=== PATIENT | male | born 1950 | race Caucasian/White ===

== ENCOUNTER 2020-05-18 15:02 | Emergency (ER) | payer MEDICARE, BC ==
[2020-05-18 15:09] VITALS: RESP 18; TEMP 97.4
[2020-05-18] MEDS ORDERED: MORPHINE SULFATE 4 MG/ML SYRINGE IVP STA (15:49)
--- NOTE | 2020-05-18 15:51 | ED ---
General Adult HPI - General Chief complaint: Abdominal Pain Stated complaint: abd pain Time Seen by Provider: 05/18/20 15:19 Source: patient, RN notes reviewed, old records reviewed Mode of arrival: ambulatory Limitations: no limitations - History of Present Illness Initial comments: 69-year-old male history of dementia presenting with abdominal pain. History is obtained predominantly from the patient's was at bedside. Patient had developed abdominal pain and was found to have inflammation in his: According to his that was treated with 1 week antibiotics approximately 3 weeks ago. He was discharged from inpatient hospital stay at an outside hospital to [facility]. He was home today and was noted to again have abdominal pain and d iscomfort. According to his he had a normal bowel movement today. There is no history of vomiting. No history of fever. Patient points to his epigastrium and. Umbilical region as to the source of his pain. No chest pain reported. - Related Data Allergies Allergy/AdvReac Type Severity Reaction Status Date / Time No Known Allergies Allergy Verified 05/18/20 17:49 Review of Systems ROS Statement: Those systems with pertinent positive or pertinent negative responses have been documented in the HPI. ROS Other: All systems not noted in ROS Statement are negative. Past Medical History Past Medical History: Dementia, Myocardial Infarction ([place]) History of Any Multi-Drug Resistant Organisms: None Reported Past Surgical History: Coronary Bypass/CABG, Heart Catheterization With Stent Smoking Status: Former smoker Past Alcohol Use History: None Reported Past Drug Use History: None Reported General Exam Limitations: no limitations General appearance: alert, in no apparent distress Head exam: Present: atraumatic, normocephalic Eye exam: Present: normal appearance, PERRL ENT exam: Present: mucous membranes dry Neck exam: Present: normal inspection. Absent: tenderness, meningismus Respiratory exam: Present: normal lung sounds bilaterally. Absent: respiratory distress, wheezes Cardiovascular Exam: Present: regular rate, normal rhythm GI/Abdominal exam: Present: soft, tenderness (Generalized tenderness to palpation). Absent: distended, guarding, rebound, rigid Extremities exam: Present: pedal edema Back exam: Present: normal inspection Neurological exam: Present: alert, oriented X3, CN II-XII intact. Absent: motor sensory deficit Psychiatric exam: Present: normal affect, normal mood Skin exam: Present: warm, dry, intact. Absent: cyanosis, diaphoretic Course Vital Signs 05/18/20 05/18/20 05/18/20 15:03 15:27 16:30 Temperature 97.4 F L Pulse Rate 101 H 103 H Respiratory 18 18 Rate Blood Pressure 132/64 146/67 O2 Sat by Pulse 97 87 L 95 Oximetry 05/18/20 05/18/20 17:00 17:30 Temperature Pulse Rate 101 H 104 H Respiratory 18 18 Rate Blood Pressure 141/78 131/71 O2 Sat by Pulse 99 98 Oximetry Medical Decision Making - Medical Decision Making 69-year-old male with abdominal pain. Pain was initially generalized. I did reevaluate the patient and his pain is completely gone. CT showing small bowel enteritis and ileus. The patient has had a bowel movement today and has not vomited. He has normal white blood cell count, hemoglobin is low with no recent for comparison. Lactic acid normal, normal electrolytes. I did offer observation for close monitoring symptom control. Patient declines. Anticipatory guidance is provided with the patient and his was at bedside. Return parameters discussed. - Lab Data Result diagrams: 05/18/20 15:42 05/18/20 15:42 Lab Results 05/18/20 05/18/20 05/18/20 Range/Units 15:42 15:42 15:42 WBC 8.3 (3.8-10.6) k/uL RBC 3.53 L (4.30-5.90) m/uL Hgb 10.3 L (13.0-17.5) gm/dL Hct 32.4 L (39.0-53.0) % MCV 91.9 (80.0-100.0) fL MCH 29.3 (25.0-35.0) pg MCHC 31.9 (31.0-37.0) g/dL RDW 15.4 (11.5-15.5) % Plt Count 438 (150-450) k/uL Neutrophils % 84 % Lymphocytes % 6 % Monocytes % 8 % Eosinophils % 1 % Basophils % 0 % Neutrophils # 7.0 (1.3-7.7) k/uL Lymphocytes # 0.5 L (1.0-4.8) k/uL Monocytes # 0.6 (0-1.0) k/uL Eosinophils # 0.1 (0-0.7) k/uL Basophils # 0.0 (0-0.2) k/uL Hypochromasia Slight PT 10.1 (9.0-12.0) sec INR 1.0 (<1.2) APTT 21.1 L (22.0-30.0) sec Sodium (137-145) mmol/L Potassium (3.5-5.1) mmol/L Chloride (98-107) mmol/L Carbon Dioxide (22-30) mmol/L Anion Gap mmol/L BUN (9-20) mg/dL Creatinine (0.66-1.25) mg/dL Est GFR (CKD-EPI)AfAm (>60 ml/min/1.73 sqM) Est GFR (CKD-EPI)NonAf (>60 ml/min/1.73 sqM) Glucose (74-99) mg/dL Plasma Lactic Acid [place] (0.7-2.0) mmol/L Calcium (8.4-10.2) mg/dL Total Bilirubin (0.2-1.3) mg/dL AST (17-59) U/L ALT (4-49) U/L Alkaline Phosphatase (38-126) U/L Total Protein (6.3-8.2) g/dL Albumin (3.5-5.0) g/dL Amylase (30-110) U/L Lipase (23-300) U/L Urine Color Yellow Urine Appearance Clear (Clear) Urine pH 6.0 (5.0-8.0) Ur Specific [place]erson 1.039 H (1.001-1.035) Urine Protein 1+ H (Negative) Urine Glucose (UA) Negative (Negative) Urine Ketones Negative (Negative) Urine Blood Moderate H (Negative) Urine Nitrite Negative (Negative) Urine Bilirubin Negative (Negative) Urine Urobilinogen <2.0 (<2.0) mg/dL Ur Leukocyte Esterase Negative (Negative) Urine RBC 48 H (0-5) /hpf Urine WBC 4 (0-5) /hpf Ur Squamous Epith Cells 2 (0-4) /hpf Urine Mucus Few H (None) /hpf 05/18/20 05/18/20 Range/Units 15:42 15:42 WBC (3.8-10.6) k/uL RBC (4.30-5.90) m/uL Hgb (13.0-17.5) gm/dL Hct (39.0-53.0) % MCV (80.0-100.0) fL MCH (25.0-35.0) pg MCHC (31.0-37.0) g/dL RDW (11.5-15.5) % Plt Count (150-450) k/uL Neutrophils % % Lymphocytes % % Monocytes % % Eosinophils % % Basophils % % Neutrophils # (1.3-7.7) k/uL Lymphocytes # (1.0-4.8) k/uL Monocytes # (0-1.0) k/uL Eosinophils # (0-0.7) k/uL Basophils # (0-0.2) k/uL Hypochromasia PT (9.0-12.0) sec INR (<1.2) APTT (22.0-30.0) sec Sodium 138 (137-145) mmol/L Potassium 4.7 (3.5-5.1) mmol/L Chloride 106 (98-107) mmol/L Carbon Dioxide 26 (22-30) mmol/L Anion Gap 6 mmol/L BUN 19 (9-20) mg/dL Creatinine 1.01 (0.66-1.25) mg/dL Est GFR (CKD-EPI)AfAm 86 (>60 ml/min/1.73 sqM) Est GFR (CKD-EPI)NonAf 75 (>60 ml/min/1.73 sqM) Glucose 221 H (74-99) mg/dL Plasma Lactic Acid [place] 1.7 (0.7-2.0) mmol/L Calcium 8.6 (8.4-10.2) mg/dL Total Bilirubin 1.0 (0.2-1.3) mg/dL AST 23 (17-59) U/L ALT 13 (4-49) U/L Alkaline Phosphatase 77 (38-126) U/L Total Protein 5.9 L (6.3-8.2) g/dL Albumin 3.0 L (3.5-5.0) g/dL Amylase 45 (30-110) U/L Lipase 33 (23-300) U/L Urine Color Urine Appearance (Clear) Urine pH (5.0-8.0) Ur Specific [place] (1.001-1.035) Urine Protein (Negative) Urine Glucose (UA) (Negative) Urine Ketones (Negative) Urine Blood (Negative) Urine Nitrite (Negative) Urine Bilirubin (Negative) Urine Urobilinogen (<2.0) mg/dL Ur Leukocyte Esterase (Negative) Urine RBC (0-5) /hpf Urine WBC (0-5) /hpf Ur Squamous Epith Cells (0-4) /hpf Urine Mucus (None) /hpf Disposition Clinical Impression: Abdominal pain, Enteritis Disposition: HOME SELF-CARE Condition: Fair Instructions (If sedation given, give patient instructions): Abdominal Pain (ED) Is patient prescribed a controlled substance at d/c from ED?: No Referrals: None,Stated [Primary Care Provider] - 1-2 days Decision to Admit Reason: Admit from EC Decision Date: 05/18/20 Decision Time: 17:52
[2020-05-18 16:07] LABS: Calcium 8.6 mg/dL (8.4-10.2); Potassium 4.7 mmol/L (3.5-5.1); Total Protein 5.9 g/dL (6.3-8.2)
[2020-05-18 16:14] LABS: Basophils % (A) 0 %; Eosinophils # (A) 0.1 k/uL (0-0.7); Eosinophils % (A) 1 %; HCT 32.4 % (39.0-53.0); HGB 10.3 gm/dL (13.0-17.5); Hypochromasia Slight; Lymphocytes # (A) 0.5 k/uL (1.0-4.8); Lymphocytes % (A) 6 %; MCH 29.3 pg (25.0-35.0); MCHC 31.9 g/dL (31.0-37.0); MCV 91.9 fL (80.0-100.0); Mean Platelet Volume 6.5; Monocytes # (A) 0.6 k/uL (0-1.0); Monocytes % (A) 8 %; Neutrophils % (A) 84 %; Platelet Count 438 k/uL (150-450); RBC 3.53 m/uL (4.30-5.90); RDW 15.4 % (11.5-15.5); WBC 8.3 k/uL (3.8-10.6)
[2020-05-18 16:34] LABS: Prothrombin Time 10.1 sec (9.0-12.0)
[2020-05-18 16:35] LABS: Partial Thromboplastin Time 21.1 sec (22.0-30.0)
--- NOTE | 2020-05-18 17:11 | CT ---
EXAMINATION TYPE: CT abdomen pelvis w con DATE OF EXAM: 05/18/2020 COMPARISON: NONE HISTORY: 69 year-old male abdominal pain, Stomach pains TECHNIQUE: Contiguous axial scanning of the abdomen and pelvis following administration of 100 ml Iso waylon 300 IV contrast. Delayed images through the kidneys and coronal/sagittal reconstructions perform ed. CT DLP: 1392.6 mGycm Automated exposure control for dose reduction was used. FINDINGS: Heart borderline enlarged. Coronary artery calcifications. There appears to be chronic pleural thick ening and trace effusions with multiple calcified pleural plaques. There is upper abdominal rectus diastases measuring 6.3 cm wide with anterior bulging laxity secondar y to protruding mid transverse colon. No focal liver lesion or biliary ductal dilatation. Portal venous system is patent. There are gallstones. No abnormal gallbladder distention. Adrenal glands, kidneys, spleen, atrophic pancreas show no gross abnormal body. Moderate to severe prostatic calcifications throughout the abdominal aorta and iliac arteries. Severe atherosclerotic calcifications throughout the SMA. Unable to exclude a significant stenosis at the o rigin of the celiac axis. Severe focal stenosis proximal left common iliac artery. Segmental moderate stenoses throughout the iliac system. Fluid-filled dilated small bowel loops especially in the left and midabdomen measuring up to 3.7 cm. No discrete transition point is identified. There is some associated mesenteric edema along the anter ior right mid abdomen. Associated mild wall thickening as well, axial image 43. No discrete transitio n point. Liquid stool within the cecum and mid to lower ascending colon. Moderate stool throughout th e remainder of the colon. Proximal sigmoid diverticulosis without pericolonic inflammatory change. Bladder urine distended. Brachytherapy seeds in the prostate gland. No abnormal fluid collection in t he pelvis or pelvic lymphadenopathy. Bones: Mild degenerative changes both hips. Moderate to advanced degenerative disc disease L5-S1. Fac et arthropathy lower lumbar spine. Grade 1 anterolisthesis L4-L5. IMPRESSION: 1. FLUID-FILLED DILATED SMALL BOWEL LOOPS ESPECIALLY IN THE LEFT AND MIDABDOMEN MEASURING UP TO 3.7 C M. NO DISCRETE TRANSITION POINT IS IDENTIFIED, CONSIDER AN ILEUS. THE POSSIBILITY OF ISCHEMIC ENTE RITIS NOT EXCLUDED GIVEN THE SEVERE ATHEROSCLEROTIC CHANGES THROUGHOUT THE SMA AND POSSIBLE SIGNIFICA NT STENOSIS AT THE ORIGIN OF THE CELIAC AXIS. CORRELATE WITH LACTIC ACID LEVELS. 2. THERE IS ASSOCIATED MILD WALL THICKENING OF SMALL BOWEL IN THE ANTERIOR RIGHT MID ABDOMEN WITH ADJ ACENT MESENTERIC EDEMA. AGAIN, ENTERITIS IS SUGGESTED.
[2020-05-18 17:27] LABS: Appearance,Urine Clear (Clear); Bilirubin,Urine Negative (Negative); Blood,Urine Moderate (Negative); Color,Urine Yellow; Glucose,Urine (UA) Negative (Negative); Ketones,Urine Negative (Negative); Leukocyte Esterase,Urine Negative (Negative); Mucus,Urine Few /hpf; Nitrite,Urine Negative (Negative); Protein,Urine 1+ (Negative); RBC,Urine 48 /hpf (0-5); Specific Gravity,Urine 1.039 (1.001-1.035); Squamous Epithelial Cell,Urine 2 /hpf (0-4); Urobilinogen,Urine <2.0 mg/dL (<2.0); WBC,Urine 4 /hpf (0-5)
[2020-05-18 17:50] VITALS: BP 131/71; PULSE 104
== END 2020-05-18 18:11 | disposition home or self-care (01) ==
LOC: EC 15:02
DX: K52.9 Noninfective gastroenteritis and colitis, unspecified (principal); I25.2 Old myocardial infarction; Z95.1 Presence of aortocoronary bypass graft; Z87.891 Personal history of nicotine dependence
CPT/HCPCS: 36415; 80053; 82150; 83605; 83690; 85025; 85610; 85730; 81001; 87040; 74177; 99284; Q9967

== ENCOUNTER → 2020-08-04 | Day surgery (SDC) | payer MEDICARE, BC ==
[2020-08-01 09:39] VITALS: BMI 26.6
[~2020-08-04] MED LIST: LACTATED RINGERS 1,000 ML IV SCH; PROPOFOL 10 MG/ML 20 ML VIAL IV ONE
[2020-08-04 08:24] VITALS: TEMP 98.1
[2020-08-04 08:31] LABS: Glucose,Whole Blood 116 mg/dL (75-99)
--- NOTE | 2020-08-04 09:25 | P.GSHP ---
History of Present Illness H&P Date: 08/04/20 69-year-old male presents for a screening colonoscopy. He states his last colonoscopy was many years ago. States he does have recent diarrhea and occasionally has had blood in his stool since his radiation for prostate cancer. He has no additional complaints at this time. Denies any abdominal pain. Denies any family history of colon cancer. - Review of Systems All systems: negative Past Medical History Past Medical History: Cancer, Dementia, Diabetes Mellitus, Deep Vein Thrombosis (DVT), Hyperlipidemia, Hypertension, Myocardial Infarction ([place]) Additional Past Medical History / Comment(s): prostate cancer with radiation 2018. anemia Last Myocardial Infarction Date:: 04/29/20 History of Any Multi-Drug Resistant Organisms: None Reported Past Surgical History: Appendectomy, Coronary Bypass/CABG, Heart Catheterization With Stent Additional Past Surgical History / Comment(s): heart stents and stents in magnus legs Past Anesthesia/Blood Transfusion Reactions: No Reported Reaction Date of Last Stent Placement:: 2014 Smoking Status: Former smoker Medications and Allergies Home Medications Medication Instructions Recorded Confirmed Type Aspirin [Adult Low Dose Aspirin EC] 81 mg PO DAILY 05/18/20 08/04/20 History Atorvastatin [Lipitor] 80 mg PO DAILY 05/18/20 08/04/20 History Clopidogrel Bisulfate [Plavix] 75 mg PO DAILY 05/18/20 08/04/20 History Ezetimibe [Zetia] 10 mg PO DAILY 05/18/20 08/04/20 History Insulin Glargine [Lantus] 20 - 24 unit SQ HS 05/18/20 08/04/20 History QUEtiapine [SEROquel] 25 mg PO HS 05/18/20 08/04/20 History Tolterodine [Detrol] 2 mg PO BID 05/18/20 08/04/20 History lisinopriL 20 mg PO BID 05/18/20 08/04/20 History Cyanocobalamin (Vitamin B-12) 1,000 mcg PO DAILY 08/01/20 08/04/20 History [Vitamin B-12] Iron 28 mg PO DAILY 08/01/20 08/04/20 History Furosemide [Lasix] 2.5 mg PO DAILY 08/04/20 08/04/20 History Levothyroxine Sodium [Synthroid] 25 mg PO DAILY 08/04/20 08/04/20 History Allergies Allergy/AdvReac Type Severity Reaction Status Date / Time No Known Allergies Allergy Verified 08/04/20 08:11 Surgical - Exam Osteopathic Statement: *. No significant issues noted on an osteopathic structural exam other than those noted in the History and Physical/Consult. Vital Signs Temp Pulse Resp BP Pulse Ox 98.1 F 79 18 129/60 99 08/04/20 08:23 08/04/20 08:23 08/04/20 08:23 08/04/20 08:23 08/04/20 08:23 - General well nourished, no distress - Eyes PERRL - ENT no hearing loss - Neck trachea midline - Respiratory normal respiratory effort - Abdomen Abdomen: soft, non tender - Psychiatric oriented to time, oriented to person, oriented to place Results - Labs Abnormal Lab Results - Last 24 Hours (Table) 08/04/20 Range/Units 08:27 POC Glucose (mg/dL) 116 H (75-99) mg/dL Assessment and Plan Plan: 69-year-old male presents for screening colonoscopy. Risks, benefits and alternatives were provided to the patient. He did provide consent. Plan is for colonoscopy.
--- NOTE | 2020-08-04 09:27 | P.PCN ---
Date of Procedure: 08/04/20 Preoperative Diagnosis: Screening Postoperative Diagnosis: Diverticulosis Procedure(s) Performed: Colonoscopy Surgeon: Marcelino Infante Pathology: none sent Condition: stable Disposition: same day Indications for Procedure: 69-year-old male presents for screening colonoscopy. Risks, benefits and alternatives were provided to the patient. He did provide consent for the procedure. Operative Findings: Large amount of diverticulosis noted in the sigmoid colon Description of Procedure: The patient was brought into the endoscopy suite. She was placed in the left lateral decubitus issue and an adequate sedation was achieved using conscious sedation. A digital rectal exam was armed and mild internal hemorrhoids were palpated. An endoscope was then placed in the rectum and advanced to the cecum as identified by landmarks including the appendiceal orifice and the ileocecal valve. The prep was fair. The colonoscope was then slowly withdrawn, examining for any mucosal abnormalities. The cecum, ascending, transverse, descending and sigmoid colon were visualized adequately. No large masses were noted throughout the colon. No obvious polyps were noted throughout the colon. Significant amount of large diverticulosis was noted in the sigmoid colon. Retroflexion was performed in the rectum and mild internal hemorrhoids were visible. Excess air was removed, the colonoscope withdrawn and the procedure terminated. The patient was then transferred to the recovery unit in stable condition. Next colonoscopy in 5-7 years.
[2020-08-04 09:29] VITALS: PULSE 62; RESP 17
[2020-08-04 09:38] VITALS: BP 108/54
== END | disposition home or self-care (01) ==
LOC: ORWHC2ENDO 07:53
PROVIDERS: ATTEND Surgery
DX: Z12.11 Encounter for screening for malignant neoplasm of colon (principal); K57.30 Diverticulosis of large intestine without perforation or abscess without bleeding; K64.8 Other hemorrhoids; E11.9 Type 2 diabetes mellitus without complications; E78.5 Hyperlipidemia, unspecified; I10 Essential (primary) hypertension; Z86.718 Personal history of other venous thrombosis and embolism; I25.2 Old myocardial infarction; E07.9 Disorder of thyroid, unspecified; F03.90 Unspecified dementia, unspecified severity, without behavioral disturbance, psychotic disturbance, mood disturbance, and anxiety; F32.9 Major depressive disorder, single episode, unspecified; K21.9 Gastro-esophageal reflux disease without esophagitis; Z85.46 Personal history of malignant neoplasm of prostate; Z92.3 Personal history of irradiation; D64.9 Anemia, unspecified; Z95.1 Presence of aortocoronary bypass graft; Z95.5 Presence of coronary angioplasty implant and graft; Z95.820 Peripheral vascular angioplasty status with implants and grafts; Z90.89 Acquired absence of other organs; Z87.891 Personal history of nicotine dependence; Z79.02 Long term (current) use of antithrombotics/antiplatelets; Z79.82 Long term (current) use of aspirin; Z79.890 Hormone replacement therapy; Z79.4 Long term (current) use of insulin; Z79.899 Other long term (current) drug therapy
CPT/HCPCS: G0121; J2704; 45378

== ENCOUNTER 2020-10-16 17:36 | Inpatient (IN) | payer MEDICARE, BC ==
[2020-10-16] MEDS ORDERED: MORPHINE SULFATE 4 MG/ML SYRINGE IV STA (18:13)
[2020-10-16] MEDS ORDERED: SODIUM CHLORIDE 0.9% 1,000 ML IV STA ×2 (18:13→20:22)
[2020-10-16] MEDS ORDERED: ONDANSETRON 4 MG/2 ML VIAL IVP STA (18:13)
[2020-10-16 18:25] LABS: Anisocytosis Slight; Basophils # (A) 0.1 k/uL (0-0.2); Basophils % (A) 0 %; Eosinophils # (A) 0.3 k/uL (0-0.7); Eosinophils % (A) 2 %; HCT 32.4 % (39.0-53.0); HGB 10.5 gm/dL (13.0-17.5); Hypochromasia Slight; Lymphocytes % (A) 13 %; MCH 27.3 pg (25.0-35.0); MCHC 32.4 g/dL (31.0-37.0); MCV 84.2 fL (80.0-100.0); Monocytes # (A) 1.2 k/uL (0-1.0); Monocytes % (A) 8 %; Neutrophils # (A) 11.5 k/uL (1.3-7.7); Neutrophils % (A) 75 %; Platelet Count 442 k/uL (150-450); Poikilocytosis Slight; RBC 3.85 m/uL (4.30-5.90); RDW 18.9 % (11.5-15.5); WBC 15.3 k/uL (3.8-10.6)
--- NOTE | 2020-10-16 18:25 | ED ---
Abdominal Pain HPI <Rudolph Sigala - Last Filed: 10/16/20 20:01> - General Source: patient Mode of arrival: ambulatory Limitations: no limitations <Chapis Wilder - Last Filed: 10/16/20 20:34> - General Chief Complaint: Abdominal Pain Stated Complaint: stomach pain Time Seen by Provider: 10/16/20 18:06 - History of Present Illness Initial Comments: Patient is a 70-year-old male, history of mild dementia, diabetes, hypertension, presenting to the emergency Department with complaints of abdominal pain for the past few hours. He states the pain is in his lower abdomen, currently rates it a 10. He states very sharp. Nonradiating. He admits to history of prostate cancer with radiation into thousand 19. He does have history of anemia as well. He denies any vomiting but states he is getting nauseous. He denies any diarrhea, he's been having his regular bowel movements. He denies any chest pain or shortness of breath, no recent fever or chills. He has no further complaints at this time. Upon arrival to the ER, his vital signs are stable. (Chapis Wilder) - Related Data Home Medications Medication Instructions Recorded Confirmed Aspirin [Adult Low Dose Aspirin EC] 81 mg PO DAILY 05/18/20 10/16/20 Atorvastatin [Lipitor] 80 mg PO DAILY 05/18/20 10/16/20 Clopidogrel Bisulfate [Plavix] 75 mg PO DAILY 05/18/20 10/16/20 Ezetimibe [Zetia] 10 mg PO DAILY 05/18/20 10/16/20 Insulin Glargine [Lantus] 20 unit SQ HS 05/18/20 10/16/20 QUEtiapine [SEROquel] 25 mg PO HS 05/18/20 10/16/20 lisinopriL 20 mg PO BID 05/18/20 10/16/20 Levothyroxine Sodium [Synthroid] 25 mg PO DAILY 08/04/20 10/16/20 Ascorbic Acid [Vitamin C] 1,000 mg PO DAILY 10/16/20 10/16/20 Cholecalciferol [Vitamin D3 (25 25 mcg PO DAILY 10/16/20 10/16/20 Mcg = 1000 Iu)] Cyanocobalamin (Vitamin B-12) 2,500 mcg PO DAILY 10/16/20 10/16/20 [Vitamin B-12] Cyclobenzaprine [Flexeril] 5 mg PO TID PRN 10/16/20 10/16/20 Magnesium Oxide [Valdes] 500 mg PO DAILY 10/16/20 10/16/20 Tolterodine ER [Detrol LA] 4 mg PO DAILY 10/16/20 10/16/20 Allergies Allergy/AdvReac Type Severity Reaction Status Date / Time No Known Allergies Allergy Verified 10/16/20 18:30 Review of Systems ROS Other: All systems not noted in ROS Statement are negative. <Rudolph Sigala - Last Filed: 10/16/20 20:01> ROS Other: All systems not noted in ROS Statement are negative. <Chapis Wilder - Last Filed: 10/16/20 20:34> ROS Statement: Those systems with pertinent positive or pertinent negative responses have been documented in the HPI. Past Medical History Past Medical History: Cancer, Dementia, Diabetes Mellitus, Deep Vein Thrombosis (DVT), Hyperlipidemia, Hypertension, Myocardial Infarction ([place]), Thyroid Disorder Additional Past Medical History / Comment(s): prostate cancer with radiation 2019. anemia Last Myocardial Infarction Date:: 04/29/20 History of Any Multi-Drug Resistant Organisms: None Reported Past Surgical History: Appendectomy, Coronary Bypass/CABG, Heart Catheterization With Stent Additional Past Surgical History / Comment(s): heart stents and stents in magnus legs Past Anesthesia/Blood Transfusion Reactions: No Reported Reaction Date of Last Stent Placement:: 2014 Past Psychological History: Depression Smoking Status: Former smoker Past Alcohol Use History: None Reported Past Drug Use History: None Reported <Chapis Wilder - Last Filed: 10/16/20 20:34> General Exam Limitations: no limitations <Chapis Wilder - Last Filed: 10/16/20 20:34> - General Exam Comments Initial Comments: GENERAL: Patient is well-developed and well-nourished. Patient is nontoxic and in mild d istress. HEAD: Atraumatic, normocephalic. EYES: Pupils equal round and reactive to light, extraocular movements intact, sclera anicteric, conjunctiva are normal. Eyelids were unremarkable. ENT: TMs normal, nares patent, oropharynx clear without exudates. Moist mucous membranes. NECK: Normal range of motion, supple without lymphadenopathy or JVD. LUNGS: Unlabored respirations. Breath sounds clear to auscultation bilaterally and equal. No wheezes rales or rhonchi. HEART: Regular rate and rhythm without murmurs, rubs or gallops. ABDOMEN: Soft, tender to abdomen in the lower aspects, left and right quadrant, no specific area. hypoactive bowel sounds. No masses appreciated. : Deferred MUSCULOSKELETAL: Normal extremities with adequate strength and normal range of motion, no pitting or edema. No clubbing or cyanosis. NEUROLOGICAL: Patient is alert and oriented x 3. Motor and sensory are also intact. Cranial nerves II through XII grossly intact. Symmetrical smile. Normal speech, normal gait. PSYCH: Normal mood, normal affect. SKIN: Warm, Dry, normal turgor, no rashes or lesions noted. (Chapis Wilder) Course Vital Signs 10/16/20 10/16/20 17:39 20:04 Temperature 97.6 F Pulse Rate 90 94 Respiratory 20 20 Rate Blood Pressure 158/78 158/77 O2 Sat by Pulse 99 100 Oximetry Medical Decision Making - Lab Data Result diagrams: 10/16/20 18:14 10/16/20 18:14 <Rudolph Sigala - Last Filed: 10/16/20 20:01> - Lab Data Result diagrams: 10/16/20 18:14 10/16/20 18:14 <Chapis Wilder - Last Filed: 10/16/20 20:34> - Medical Decision Making Patient reevaluated and reexamined by myself, Dr. Sigala. Patient resting in bed still complaining of discomfort. Abdomen soft with mild diffuse tenderness. CT report reviewed and images. Case discussed in detail with Dr. Darnell who will admit with medical consult. He requests 2 L total fluid bolus then 1 25 mL per hour as well as IV antibiotics and NPO. (Rudolph Sigala) Patient is a 70-year-old male, with history of hypertension, heart disease, diabetes, presenting with acute abdominal pain that started 3-4 hours prior to arrival. His vital signs are stable upon arrival. Labs show a white count of 15.3, stable hemoglobin at 10.5. Lactic is slightly elevated at 2.1, kidney function is stable. Did order a CT of the abdomen which shows diffuse pn eumatosis intestinalis involving the mid to distal small bowel loops with portal venous gas, consistent with bowel ischemia, associated moderate grade ileus. The to the radiologist regarding these findings. Patient will be admitted to surgery with medicine on consult. Patient has been given a liter bolus and pain control in the ER, I will add another liter bolus and continue with fluids, pain control. I did order a dose of antibiotics and we'll keep him NPO. Patient accepted by Dr. Darnell with Dr. Pedraza on medical management. Case discussed with Dr. Sigala. (Chapis Wilder) - Lab Data Lab Results 10/16/20 10/16/20 10/16/20 Range/Units 18:14 18:14 18:14 WBC 15.3 H (3.8-10.6) k/uL RBC 3.85 L (4.30-5.90) m/uL Hgb 10.5 L (13.0-17.5) gm/dL Hct 32.4 L (39.0-53.0) % MCV 84.2 (80.0-100.0) fL MCH 27.3 (25.0-35.0) pg MCHC 32.4 (31.0-37.0) g/dL RDW 18.9 H (11.5-15.5) % Plt Count 442 (150-450) k/uL MPV 7.0 Neutrophils % 75 % Lymphocytes % 13 % Monocytes % 8 % Eosinophils % 2 % Basophils % 0 % Neutrophils # 11.5 H (1.3-7.7) k/uL Lymphocytes # 2.0 (1.0-4.8) k/uL Monocytes # 1.2 H (0-1.0) k/uL Eosinophils # 0.3 (0-0.7) k/uL Basophils # 0.1 (0-0.2) k/uL Hypochromasia Slight Poikilocytosis Slight Anisocytosis Slight PT 9.9 (9.0-12.0) sec INR 0.9 (<1.2) APTT 18.7 L (22.0-30.0) sec Sodium 134 L (137-145) mmol/L Potassium 4.1 (3.5-5.1) mmol/L Chloride 101 (98-107) mmol/L Carbon Dioxide 23 (22-30) mmol/L Anion Gap 10 mmol/L BUN 30 H (9-20) mg/dL Creatinine 0.82 (0.66-1.25) mg/dL Est GFR (CKD-EPI)AfAm >90 (>60 ml/min/1.73 sqM) Est GFR (CKD-EPI)NonAf 88 (>60 ml/min/1.73 sqM) Glucose 245 H (74-99) mg/dL Plasma Lactic Acid [place] (0.7-2.0) mmol/L Calcium 9.3 (8.4-10.2) mg/dL Total Bilirubin 0.8 (0.2-1.3) mg/dL AST 23 (17-59) U/L ALT 14 (4-49) U/L Alkaline Phosphatase 97 (38-126) U/L Total Protein 6.0 L (6.3-8.2) g/dL Albumin 3.3 L (3.5-5.0) g/dL Amylase 36 (30-110) U/L Lipase 27 (23-300) U/L / Range/Units 18:14 WBC (3.8-10.6) k/uL RBC (4.30-5.90) m/uL Hgb (13.0-17.5) gm/dL Hct (39.0-53.0) % MCV (80.0-100.0) fL MCH (25.0-35.0) pg MCHC (31.0-37.0) g/dL RDW (11.5-15.5) % Plt Count (150-450) k/uL MPV Neutrophils % % Lymphocytes % % Monocytes % % Eosinophils % % Basophils % % Neutrophils # (1.3-7.7) k/uL Lymphocytes # (1.0-4.8) k/uL Monocytes # (0-1.0) k/uL Eosinophils # (0-0.7) k/uL Basophils # (0-0.2) k/uL Hypochromasia Poikilocytosis Anisocytosis PT (9.0-12.0) sec INR (<1.2) APTT (22.0-30.0) sec Sodium (137-145) mmol/L Potassium (3.5-5.1) mmol/L Chloride (98-107) mmol/L Carbon Dioxide (22-30) mmol/L Anion Gap mmol/L BUN (9-20) mg/dL Creatinine (0.66-1.25) mg/dL Est GFR (CKD-EPI)AfAm (>60 ml/min/1.73 sqM) Est GFR (CKD-EPI)NonAf (>60 ml/min/1.73 sqM) Glucose (74-99) mg/dL Plasma Lactic Acid [place] 2.1 H* (0.7-2.0) mmol/L Calcium (8.4-10.2) mg/dL Total Bilirubin (0.2-1.3) mg/dL AST (17-59) U/L ALT (4-49) U/L Alkaline Phosphatase (38-126) U/L Total Protein (6.3-8.2) g/dL Albumin (3.5-5.0) g/dL Amylase (30-110) U/L Lipase (23-300) U/L Disposition <Rudolph Sigala - Last Filed: 10/16/20 20:01> Decision Date: 10/16/20 Decision Time: 20:23 <Chapis Wilder - Last Filed: 10/16/20 20:34> Clinical Impression: Ischemic bowel disease, Abdominal pain Disposition: ADMITTED IP TO THIS [facility] Condition: Stable Referrals: Raghu Pineda DO [Primary Care Provider] - 1-2 days
[2020-10-16 18:42] LABS: INR 0.9 (<1.2); Prothrombin Time 9.9 sec (9.0-12.0)
[2020-10-16 18:44] LABS: ALT 14 U/L (4-49); AST 23 U/L (17-59); African American GFR (CKD) >90 (>60 ml/min/1.73 sqM); Albumin 3.3 g/dL (3.5-5.0); Alkaline Phosphatase 97 U/L (38-126); Amylase 36 U/L (30-110); Anion Gap 10 mmol/L; Blood Urea Nitrogen 30 mg/dL (9-20); Calcium 9.3 mg/dL (8.4-10.2); Carbon Dioxide 23 mmol/L (22-30); Chloride 101 mmol/L (98-107); Glucose 245 mg/dL (74-99); Lipase 27 U/L (23-300); Non-African American GFR(CKD) 88 (>60 ml/min/1.73 sqM); Potassium 4.1 mmol/L (3.5-5.1); Sodium 134 mmol/L (137-145); Total Bilirubin 0.8 mg/dL (0.2-1.3)
[2020-10-16 19:05] LABS: Partial Thromboplastin Time 18.7 sec (22.0-30.0)
[2020-10-16] MEDS ORDERED: MORPHINE SULFATE 2 MG/ML SYRINGE IVP ONE (19:42)
--- NOTE | 2020-10-16 19:42 | CT ---
EXAMINATION TYPE: CT abdomen pelvis w con DATE OF EXAM: 10/16/2020 COMPARISON: 05/18/2020. HISTORY: Abdominal pain CT DLP: 809.4 mGycm Automated exposure control for dose reduction was used. TECHNIQUE: Helical acquisition of images was performed from the lung bases through the pelvis. CONTRAST: Performed without Oral Contrast and with IV Contrast, patient injected with 100 mL of Isovue 300. FINDINGS: LUNG BASES: No acute abnormality is appreciated. Bilateral pleural plaques seen. LIVER/GB: Moderate to severe portal venous gas throughout the liver. PANCREAS: No significant abnormality is seen. SPLEEN: No significant abnormality is seen. ADRENALS: No significant abnormality is seen. KIDNEYS: No significant abnormality is seen. FREE AIR: No free air is visualized. RETROPERITONEAL ADENOPATHY: None visualized REPRODUCTIVE ORGANS: No significant abnormality is seen URINARY BLADDER: No significant abnormality is seen. PELVIC ADENOPATHY: None visualized. OSSEOUS STRUCTURES: No significant abnormality is seen. BOWEL: Diffuse pneumatosis intestinalis involving the mid to distal small bowel loops. Associated mi ld to moderate dilatation of the small bowel loops. No overt free air or significant free fluid. OTHER: Advanced atherosclerotic disease. IMPRESSION: DIFFUSE PNEUMATOSIS INTESTINALIS INVOLVING THE MID TO DISTAL SMALL BOWEL LOOPS WITH PORTAL VENOUS GAS , CONSISTENT WITH BOWEL ISCHEMIA. ASSOCIATED MODERATE GRADE ILEUS. Findings were reported to caring physician by me at the time of dictation.
[2020-10-16] MEDS ORDERED: MORPHINE SULFATE 4 MG/ML SYRINGE IVP STA (19:54)
[2020-10-16] MEDS ORDERED: NALOXONE 0.4 MG/ML 1 ML VIAL IV PRN (20:20)
[2020-10-16] MEDS ORDERED: ONDANSETRON 4 MG/2 ML VIAL IVP PRN (20:20)
[2020-10-16] MEDS ORDERED: PIPERACILLIN-TAZOBACTAM 3.375 GM in SODIUM CHLORIDE 0.9% 100 ML IVPB STA (20:22)
[2020-10-16] MEDS: SODIUM CHLORIDE 0.9% 1,000 ML IV SCH (20:50)
[2020-10-17] MEDS: MORPHINE SULFATE 4 MG/ML SYRINGE IV PRN ×2 (00:13→04:07)
[2020-10-17] MEDS ORDERED: SODIUM CHLORIDE 0.9% 1,000 ML IV ONE (01:49)
[2020-10-17] MEDS: SODIUM CHLORIDE 0.9% 1,000 ML IV SCH ×2 (02:41→18:17)
[2020-10-17 07:39] LABS: Glucose,Whole Blood 422 mg/dL (75-99)
[2020-10-17] MEDS ORDERED: INSULIN ASPART (NovoLOG) 100 UNIT/ML VIAL SQ ONE ×2 (09:00→12:46)
--- NOTE | 2020-10-17 09:09 | P.GSHP ---
History of Present Illness H&P Date: 10/17/20 CHIEF COMPLAINT: Abdominal pain HISTORY OF PRESENT ILLNESS: This is a 70-year-old male with a known history of myocardial infarction, coronary artery disease with prior CABG and cardiac stent. He also has a history of peripheral vascular disease requiring stents in both of his legs. He has a history of diverticulosis, anemia, diabetes mellitus, hypertension, prostate cancer with radiation treatment in 2019 and dementia. Patient has also had an appendectomy. He presents to emergency room with complaints of abdominal pain. He reports having this abdominal pain for months. And yesterday the pain worsened. Patient points to the mid abdomen for where the pain is located. He describes pain as sharp and rates it about a 10 out of 10. The pain is nonradiating. He did have one episode of vomiting yesterday. He reports having diarrhea and stools are blackish in color. He denies any fever. Does admit to having some chills. He is on Plavix and aspirin at home. Patient had computed tomography scan of abdomen and pelvis showing diffuse pneumatosis intestinalis involving the mid to distal small bowel loops with portal venous gas consistent with bowel ischemia. Associated moderate grade ileus. Patient has been admitted to the hospital for ischemic bowel. PAST MEDICAL HISTORY: See list. PAST SURGICAL HISTORY: See list. MEDICATIONS: See list. ALLERGIES: See list. SOCIAL HISTORY: No illicit drug use. REVIEW OF SYSTEMS: CONSTITUTIONAL: Denies fever or chills. HEENT: Denies blurred vision, vision changes, or eye pain. Denies hemoptysis CARDIOVASCULAR: Denies chest pain or pressure. RESPIRATORY: No shortness of breath. GASTROINTESTINAL: See HPI for pertinent findings HEMATOLOGIC: Denies bleeding disorders. GENITOURINARY: Denies any blood in urine or increased urinary frequency. SKIN: Denies pruitis. Denies rash. PHYSICAL EXAM: VITAL SIGNS: Reviewed GENERAL: Well-developed in no acute distress. HEENT: No sclera icterus. Extraocular movements grossly intact. Moist buccal mucosa. Head is atraumatic, normocephalic. No nasal drainage. ABDOMEN: Soft. Nondistended. Tenderness with palpation of upper and mid abdomen NEUROLOGIC: Alert and oriented [address] and name. Cranial nerves II through XII grossly intact. LABORATORY DATA: WBC 15.3 Hgb 10.5 platelets 442 INR 0.9 creatinine 0.8 to glucose of 422 lactic 7.3 LFTs normal lipase normal Covid not detected IMAGING: computed tomography scan of abdomen and pelvis showing diffuse pneumatosis intestinalis involving the mid to distal small bowel loops with portal venous gas consistent with bowel ischemia. Associated moderate grade ileus. ASSESSMENT: 1. Abdominal pain secondary to ischemic bowel 2. Ischemic bowel 3. Diabetes mellitus with elevated blood sugar 4. Cardiac history with prior CABG and cardiac stents 5. Peripheral vascular disease with stents to the legs PLAN: -Patient scheduled for exploratory laparotomy today, 10/15/[address] Darnell -Keep patient nothing by mouth -Hold aspirin and Plavix -Continue IV fluids -Continue IV Zosyn -Consult medicine service for medical management -Continue pain medication as needed Physician Entry Level Financial Analyst note has been reviewed by physician. Signing provider agrees with the documented findings, assessment, and plan of care. Past Medical History Past Medical History: Cancer, Dementia, Diabetes Mellitus, Deep Vein Thrombosis (DVT), Hyperlipidemia, Hypertension, Myocardial Infarction ([place]), Thyroid Disorder Additional Past Medical History / Comment(s): prostate cancer with radiation 2018. anemia Last Myocardial Infarction Date:: 04/29/20 History of Any Multi-Drug Resistant Organisms: None Reported Past Surgical History: Appendectomy, Coronary Bypass/CABG, Heart Catheterization With Stent Additional Past Surgical History / Comment(s): heart stents and stents in magnus legs Past Anesthesia/Blood Transfusion Reactions: No Reported Reaction Date of Last Stent Placement:: 2014 Past Psychological History: Depression Additional Psychological History / Comment(s): dementia Smoking Status: Former smoker Past Alcohol Use History: None Reported Additional Past Alcohol Use History / Comment(s): smoker for 20 years quit age 38 Past Drug Use History: None Reported Medications and Allergies Home Medications Medication Instructions Recorded Confirmed Type Aspirin [Adult Low Dose Aspirin EC] 81 mg PO DAILY 05/18/20 10/16/20 History Atorvastatin [Lipitor] 80 mg PO DAILY 05/18/20 10/16/20 History Clopidogrel Bisulfate [Plavix] 75 mg PO DAILY 05/18/20 10/16/20 History Ezetimibe [Zetia] 10 mg PO DAILY 05/18/20 10/16/20 History Insulin Glargine [Lantus] 20 unit SQ HS 05/18/20 10/16/20 History QUEtiapine [SEROquel] 25 mg PO HS 05/18/20 10/16/20 History lisinopriL 20 mg PO BID 05/18/20 10/16/20 History Levothyroxine Sodium [Synthroid] 25 mg PO DAILY 08/04/20 10/16/20 History Ascorbic Acid [Vitamin C] 1,000 mg PO DAILY 10/16/20 10/16/20 History Cholecalciferol [Vitamin D3 (25 25 mcg PO DAILY 10/16/20 10/16/20 History Mcg = 1000 Iu)] Cyanocobalamin (Vitamin B-12) 2,500 mcg PO DAILY 10/16/20 10/16/20 History [Vitamin B-12] Cyclobenzaprine [Flexeril] 5 mg PO TID PRN 10/16/20 10/16/20 History Magnesium Oxide [Valdes] 500 mg PO DAILY 10/16/20 10/16/20 History Tolterodine ER [Detrol LA] 4 mg PO DAILY 10/16/20 10/16/20 History Allergies Allergy/AdvReac Type Severity Reaction Status Date / Time No Known Allergies Allergy Verified 10/16/20 18:30 Surgical - Exam Vital Signs Temp Pulse Resp BP Pulse Ox 97.6 F 90 20 158/78 99 10/16/20 17:39 10/16/20 17:39 10/16/20 17:39 10/16/20 17:39 10/16/20 17:39 Results - Labs 10/16/20 18:14 10/16/20 18:14 Abnormal Lab Results - Last 24 Hours (Table) 10/16/20 10/16/20 10/16/20 Range/Units 18:14 18:14 18:14 WBC 15.3 H (3.8-10.6) k/uL RBC 3.85 L (4.30-5.90) m/uL Hgb 10.5 L (13.0-17.5) gm/dL Hct 32.4 L (39.0-53.0) % RDW 18.9 H (11.5-15.5) % Neutrophils # 11.5 H (1.3-7.7) k/uL Monocytes # 1.2 H (0-1.0) k/uL APTT 18.7 L (22.0-30.0) sec Sodium 134 L (137-145) mmol/L BUN 30 H (9-20) mg/dL Glucose 245 H (74-99) mg/dL POC Glucose (mg/dL) (75-99) mg/dL Plasma Lactic Acid [place] (0.7-2.0) mmol/L Total Protein 6.0 L (6.3-8.2) g/dL Albumin 3.3 L (3.5-5.0) g/dL 10/16/20 10/16/20 10/17/20 Range/Units 18:14 21:34 00:22 WBC (3.8-10.6) k/uL RBC (4.30-5.90) m/uL Hgb (13.0-17.5) gm/dL Hct (39.0-53.0) % RDW (11.5-15.5) % Neutrophils # (1.3-7.7) k/uL Monocytes # (0-1.0) k/uL APTT (22.0-30.0) sec Sodium (137-145) mmol/L BUN (9-20) mg/dL Glucose (74-99) mg/dL POC Glucose (mg/dL) (75-99) mg/dL Plasma Lactic Acid [place] 2.1 H* 4.2 H* 5.1 H* (0.7-2.0) mmol/L Total Protein (6.3-8.2) g/dL Albumin (3.5-5.0) g/dL 10/17/20 10/17/20 Range/Units 04:23 07:37 WBC (3.8-10.6) k/uL RBC (4.30-5.90) m/uL Hgb (13.0-17.5) gm/dL Hct (39.0-53.0) % RDW (11.5-15.5) % Neutrophils # (1.3-7.7) k/uL Monocytes # (0-1.0) k/uL APTT (22.0-30.0) sec Sodium (137-145) mmol/L BUN (9-20) mg/dL Glucose (74-99) mg/dL POC Glucose (mg/dL) 422 H (75-99) mg/dL Plasma Lactic Acid [place] 7.3 H* (0.7-2.0) mmol/L Total Protein (6.3-8.2) g/dL Albumin (3.5-5.0) g/dL Diabetes panel 10/16/20 Range/Units 18:14 Sodium 134 L (137-145) mmol/L Potassium 4.1 (3.5-5.1) mmol/L Chloride 101 (98-107) mmol/L Carbon Dioxide 23 (22-30) mmol/L BUN 30 H (9-20) mg/dL Creatinine 0.82 (0.66-1.25) mg/dL Glucose 245 H (74-99) mg/dL Calcium 9.3 (8.4-10.2) mg/dL AST 23 (17-59) U/L ALT 14 (4-49) U/L Alkaline Phosphatase 97 (38-126) U/L Total Protein 6.0 L (6.3-8.2) g/dL Albumin 3.3 L (3.5-5.0) g/dL Calcium panel 10/16/20 Range/Units 18:14 Calcium 9.3 (8.4-10.2) mg/dL Albumin 3.3 L (3.5-5.0) g/dL Pituitary panel 10/16/20 Range/Units 18:14 Sodium 134 L (137-145) mmol/L Potassium 4.1 (3.5-5.1) mmol/L Chloride 101 (98-107) mmol/L Carbon Dioxide 23 (22-30) mmol/L BUN 30 H (9-20) mg/dL Creatinine 0.82 (0.66-1.25) mg/dL Glucose 245 H (74-99) mg/dL Calcium 9.3 (8.4-10.2) mg/dL Adrenal panel 10/16/20 Range/Units 18:14 Sodium 134 L (137-145) mmol/L Potassium 4.1 (3.5-5.1) mmol/L Chloride 101 (98-107) mmol/L Carbon Dioxide 23 (22-30) mmol/L BUN 30 H (9-20) mg/dL Creatinine 0.82 (0.66-1.25) mg/dL Glucose 245 H (74-99) mg/dL Calcium 9.3 (8.4-10.2) mg/dL Total Bilirubin 0.8 (0.2-1.3) mg/dL AST 23 (17-59) U/L ALT 14 (4-49) U/L Alkaline Phosphatase 97 (38-126) U/L Total Protein 6.0 L (6.3-8.2) g/dL Albumin 3.3 L (3.5-5.0) g/dL
[2020-10-17] MEDS ORDERED: IV FLUID CONTINUATION 200 ML IV ONE (09:25)
[2020-10-17 10:11] LABS: Glucose,Whole Blood 371 mg/dL (75-99)
[2020-10-17] MEDS ORDERED: ONDANSETRON 4 MG/2 ML VIAL IVP ONE (10:11)
[2020-10-17] MEDS ORDERED: DEXAMETHASONE SOD PHOSPHATE 4 MG/ML 1 ML VIAL IV ONE (10:12)
[2020-10-17] MEDS ORDERED: LACTATED RINGERS 1,000 ML IV ONE ×2 (10:19→11:54)
[2020-10-17] MEDS ORDERED: LIDOCAINE 1% INJ 10MG/ML (20 ML MDV) ONE (10:40)
[2020-10-17] MEDS ORDERED: fentaNYL (PF) 50 MCG/ML 2 ML AMP ONE (10:40)
[2020-10-17] MEDS ORDERED: VASOPRESSIN 20 UNIT/ML 1 ML VIAL ONE (10:40)
[2020-10-17] MEDS ORDERED: ROCURONIUM 10 MG/ML (5 ML VIAL) IV ONE (10:40)
[2020-10-17] MEDS ORDERED: PHENYLEPHRINE-0.9% NACL SYG 1,000 MCG/10 ML SYRINGE ONE (10:40)
[2020-10-17] MEDS ORDERED: ETOMIDATE 2 MG/ML 10 ML VIAL ONE (10:40)
[2020-10-17] MEDS ORDERED: SUCCINYLCHOLINE CHLORIDE 100 MG/5 ML SYR IV ONE (10:40)
[2020-10-17] MEDS ORDERED: SODIUM BICARB 8.4% 50 ML VIAL (1 MEQ/ML) ONE (10:40)
[2020-10-17] MEDS ORDERED: ePHEDrine SULFATE/0.9% NACL/PF 50 MG/5 ML SYRINGE IV ONE (10:40)
[2020-10-17] MEDS ORDERED: GLYCOPYRROLATE 0.2 MG/ML 2 ML VIAL ONE (10:40)
[2020-10-17] MEDS ORDERED: NEOSTIGMINE 1 MG/ML 10 ML VIAL ONE (10:40)
[2020-10-17] MEDS ORDERED: SODIUM CHLORIDE 0.9% 50 ML with ceFAZolin 2,000 MG IV ONE ×2 (11:25)
[2020-10-17] MEDS ORDERED: NALOXONE 0.4 MG/ML 1 ML VIAL IV PRN (11:54)
[2020-10-17] MEDS ORDERED: ONDANSETRON 4 MG/2 ML VIAL IVP PRN (11:54)
--- NOTE | 2020-10-17 11:54 | P.OP ---
Date of Procedure: 10/17/20 Preoperative Diagnosis: Ischemic bowel Postoperative Diagnosis: Ischemic bowel, adhesions Procedure(s) Performed: Exploratory laparotomy Lysis of adhesions Small bowel resection Anesthesia: JAROD Surgeon: Tom Darnell Estimated Blood Loss (ml): 20 Pathology: other (Small bowel) Condition: critical Disposition: ICU Description of Procedure: The patient's placed on the operative table in the supine position. He received general anesthesia. His abdomen was prepped and draped usual fashion. The patient was hypotensive on induction. A midline incision was made and the abdomen was entered through the midline. The Bookwalter tract with trace placed a wound. The small bowel was examined. There is some adhesions of small bowel to the anterior abdominal wall these were lysed with sharp dissection. The midportion of the small bowel appeared to be ischemic. There is patchy necrosis seen throughout this area. Approximately half of small bowel was involved with the necrosis. At this point the bowel was transected proximally distally. And then using insulin device the mesentery the bowel was divided. A [id number] functional end-to-end staple anastomosis was created. Using the KANG and TA staplers. 3-0 GI silk sutures a crotch stitch. The abdomen was irrigated there is no bleeding seen. The fascia was closed with looped #1 PDS suture. Skin was closed with danyell. Patient was sent to recovery on a T piece.
[2020-10-17 12:31] LABS: Glucose,Whole Blood 331 mg/dL (75-99)
[2020-10-17 13:25] LABS: Glucose,Whole Blood 284 mg/dL (75-99)
[2020-10-17] MEDS ORDERED: INSULIN REGULAR BOLUS (FROM DRIP BAG) IV PRN (15:25)
--- NOTE | 2020-10-17 15:25 | P.CNPUL ---
History of Present Illness Consult date: 10/17/20 Chief complaint: Abdominal pain History of present illness: 70-year-old male patient who arrived from the operating room where the patient had a extensive laparotomy, lysis of adhesions and small bowel resection for ischemic bowel. The patient was found to have ischemic bowel intraoperatively. Postop, the patient was extubated and patient was brought into the ICU for further care. At this point in time the patient is on oxygen at 3 L and his pulse ox around 93%. His BP is 101/56. He has nausea upper extremity peripheral IV. No central lines inserted. He has a Bowman catheter in place. He is currently running IV fluids at the rate of 150 mL an hour of normal saline. He will be given a 2 L bolus immediately here in the ICU knowing that his urine output has been in the order of 10-20 mL an hour. The patient came into the emergency department on October 16 and the patient was complaining of abdominal pain and he also had some lactic acidosis. Note that he has vasculopathy angios diabetes mellitus hypertension and underlying dementia and he is also known to have CAD and prostate cancer for which she has associated radiation therapy. The patient had a CAT scan of the abdomen and pelvis that was done in the emergency department yesterday and the CAT scan showed no evidence of any free air. There was diffuse pneumatosis intestinalis involving the mid and the distal portion of the small bowel loops with 40 venous gas con sistent with bowel ischemia. There was also associated mild to moderate grade of an ileus. For that reason, the patient was taken to the operating room today. Note that his lactic acid level was 5.4. Currently is awake. Is unresponsive. Moving all 4 extremities. The patient already received a total of 4 L of fluid boluses. He is currently on IV Zosyn. Review of Systems ROS unobtainable: due to mental status (The patient is still under the effect of sedation for now) Past Medical History Past Medical History: Coronary Artery Disease (CAD), Cancer, Dementia, Diabetes Mellitus, Deep Vein Thrombosis (DVT), Hyperlipidemia, Hypertension, Myocardial Infarction ([place]), Thyroid Disorder Additional Past Medical History / Comment(s): prostate cancer with radiation 2019. anemia Last Myocardial Infarction Date:: 04/29/20 History of Any Multi-Drug Resistant Organisms: None Reported Past Surgical History: Appendectomy, Coronary Bypass/CABG, Heart Catheterization With Stent Additional Past Surgical History / Comment(s): heart stents and stents in magnus legs Past Anesthesia/Blood Transfusion Reactions: No Reported Reaction Date of Last Stent Placement:: 2014 Past Psychological History: Depression Additional Psychological History / Comment(s): dementia Smoking Status: Former smoker Past Alcohol Use History: None Reported Additional Past Alcohol Use History / Comment(s): smoker for 20 years quit age 38 Past Drug Use History: None Reported Medications and Allergies Home Medications Medication Instructions Recorded Confirmed Type Aspirin [Adult Low Dose Aspirin EC] 81 mg PO DAILY 05/18/20 10/16/20 History Atorvastatin [Lipitor] 80 mg PO DAILY 05/18/20 10/16/20 History Clopidogrel Bisulfate [Plavix] 75 mg PO DAILY 05/18/20 10/16/20 History Ezetimibe [Zetia] 10 mg PO DAILY 05/18/20 10/16/20 History Insulin Glargine [Lantus] 20 unit SQ HS 05/18/20 10/16/20 History QUEtiapine [SEROquel] 25 mg PO HS 05/18/20 10/16/20 History lisinopriL 20 mg PO BID 05/18/20 10/16/20 History Levothyroxine Sodium [Synthroid] 25 mg PO DAILY 08/04/20 10/16/20 History Ascorbic Acid [Vitamin C] 1,000 mg PO DAILY 10/16/20 10/16/20 History Cholecalciferol [Vitamin D3 (25 25 mcg PO DAILY 10/16/20 10/16/20 History Mcg = 1000 Iu)] Cyanocobalamin (Vitamin B-12) 2,500 mcg PO DAILY 10/16/20 10/16/20 History [Vitamin B-12] Cyclobenzaprine [Flexeril] 5 mg PO TID PRN 10/16/20 10/16/20 History Magnesium Oxide [Valdes] 500 mg PO DAILY 10/16/20 10/16/20 History Tolterodine ER [Detrol LA] 4 mg PO DAILY 10/16/20 10/16/20 History Allergies Allergy/AdvReac Type Severity Reaction Status Date / Time No Known Allergies Allergy Verified 10/16/20 18:30 Physical Exam Vitals: Vital Signs Temp Pulse Pulse Pulse Resp BP BP 10/17/20 13:00 92 16 98/54 10/17/20 12:47 91 16 113/59 10/17/20 12:30 90 16 120/86 10/17/20 12:20 98.8 F 92 20 115/58 10/17/20 09:26 97.6 F 97 122/71 10/17/20 08:28 97.3 F L 98 15 122/77 10/17/20 05:00 96.7 F L 97 16 121/77 10/16/20 22:12 97.4 F L 103 H 16 148/76 10/16/20 21:48 98.0 F 86 20 156/72 10/16/20 20:04 94 20 158/77 10/16/20 17:39 97.6 F 90 20 158/78 Pulse Ox 10/17/20 13:00 97 10/17/20 12:47 100 10/17/20 12:30 100 10/17/20 12:20 98 10/17/20 09:26 99 10/17/20 08:28 10/17/20 05:00 94 L 10/16/20 22:12 98 10/16/20 21:48 98 10/16/20 20:04 100 10/16/20 17:39 99 Intake and Output 10/17/20 10/17/20 10/17/20 06:59 14:59 22:59 Intake Total 0 1200 Output Total 195 Balance 0 1005 Intake: IV 1200 Oral 0 Output: Urine 170 Estimated Blood Loss 25 Other: Voiding Method Indwelling Catheter Weight 70.307 kg Gen. appearance the patient is calm and comfortable likely distress Head exam was generally normal. There was no scleral icterus or corneal arcus. Mucous membranes were moist. Neck was supple and without jugular venous distension, thyromegaly, or carotid bruits. Carotids were easily palpable bilaterally. There was no adenopathy. Lungs sounds are diminished yet the BS diminished symmetrical bilaterally. Cardiac exam revealed the PMI to be normally situated and sized. The rhythm was regular and no extrasystoles were noted during several minutes of auscultation. The first and second heart sounds were normal and physiologic splitting of the second heart sound was noted. There were no murmurs, rubs, clicks, or gallops. Abdomen is soft. Surgical wound site is dry clean and intact. No direct tenderness. No rebound tenderness. No guarding. The patient's has a clean incision sites. No organomegaly. No bowel sounds. Examination of the extremities revealed easily palpable radial, femoral and pedal pulses. There was no cyanosis, clubbing or edema. Examination of the skin revealed no evidence of significant rashes, suspicious appearing nevi or other concerning lesions. Neurologically, the patient is awake and alert and the patient does not have any focal neurological deficit. Cranial nerves are essentially intact. Results - Laboratory Findings CBC and BMP: 10/16/20 18:14 10/16/20 18:14 PT/INR, D-dimer PT 9.9 sec (9.0-12.0) 10/16/20 18:14 INR 0.9 (<1.2) 10/16/20 18:14 Abnormal lab findings: Abnormal Labs 10/16/20 10/16/20 10/16/20 18:14 18:14 18:14 WBC 15.3 H RBC 3.85 L Hgb 10.5 L Hct 32.4 L RDW 18.9 H Neutrophils # 11.5 H Monocytes # 1.2 H APTT 18.7 L Sodium 134 L BUN 30 H Glucose 245 H POC Glucose (mg/dL) Plasma Lactic Acid [place] Total Protein 6.0 L Albumin 3.3 L 10/16/20 10/16/20 10/17/20 18:14 21:34 00:22 WBC RBC Hgb Hct RDW Neutrophils # Monocytes # APTT Sodium BUN Glucose POC Glucose (mg/dL) Plasma Lactic Acid [place] 2.1 H* 4.2 H* 5.1 H* Total Protein Albumin 10/17/20 10/17/20 10/17/20 04:23 07:37 08:30 WBC RBC Hgb Hct RDW Neutrophils # Monocytes # APTT Sodium BUN Glucose POC Glucose (mg/dL) 422 H Plasma Lactic Acid [place] 7.3 H* 5.4 H* Total Protein Albumin 10/17/20 10/17/20 10/17/20 10:10 12:30 13:24 WBC RBC Hgb Hct RDW Neutrophils # Monocytes # APTT Sodium BUN Glucose POC Glucose (mg/dL) 371 H 331 H 284 H Plasma Lactic Acid [place] Total Protein Albumin - Diagnostic Findings Chest x-ray: image reviewed Assessment and Plan Plan: 1 Acute ischemic small bowel with pneumatosis intestinalis, the patient is post that the laparotomy and small bowel resection and the patient is postop day #0 2 hypotension secondary to above, consider underlying sepsis of an abdominal source secondary to bowel ischemia. The patient has received a total of 4 L of IV fluids and currently is on IV Zosyn. 3 acute lactic acidosis secondary to above 4 acute leukocytosis 5 coronary artery disease with previous bypass surgery 6 diabetes mellitus with elevated blood sugar 7 peripheral vascular disease with previous intervention and stenting of the lower extremities 8 hypertension 9 hyperlipidemia 10 hypothyroidism 11 prostate cancer with previous radiation therapy Plan Continue lactated Ringer at the rate of 150 mL an hour Monitor lactic acid level Given additional 2 L of bolus of IV fluids of normal saline Continue IV Zosyn Started patient on insulin drip for blood sugar control Dilaudid for pain control Heparin subcu for DVT prophylaxis 5000 every 8 IV Protonix Repeat labs Incentive spirometer We'll continue to follow her as ICU.
[2020-10-17] MEDS ORDERED: INSULIN REGULAR 100 UNIT in SODIUM CHLORIDE 0.9% 100 ML IV SCH (15:30)
--- NOTE | 2020-10-17 15:42 | XR ---
EXAMINATION TYPE: XR chest 1V portable DATE OF EXAM: 10/17/2020 COMPARISON: NONE HISTORY: Pain TECHNIQUE: Single frontal view of the chest is obtained. FINDINGS: Heart is enlarged postoperative change of diffuse interstitial pattern in bilateral consol idation. Prominent bowel loops in the abdomen suspicion for free intraperitoneal air. Report called t o the ICU nurse on 10/17/2020 at 1537. Pleural thickening and calcifications noted correlate for asbes tos related disease. IMPRESSION: 1. Bilateral infiltrate, COPD and small effusion correlate for CHF versus interstitial pneumonia. 2. Findings suspicious for free intraperitoneal air within the left abdomen. Report called immediatel y to the patient's nurse.
[2020-10-17 16:02] LABS: INR 1.2 (<1.2); Prothrombin Time 12.2 sec (9.0-12.0)
[2020-10-17 16:06] LABS: Albumin 2.3 g/dL (3.5-5.0); Calcium 8.4 mg/dL (8.4-10.2); Potassium 4.2 mmol/L (3.5-5.1); Total Bilirubin 0.4 mg/dL (0.2-1.3); Total Protein 4.5 g/dL (6.3-8.2)
[2020-10-17 16:28] LABS: Anisocytosis Slight; Basophils % (A) 0 %; Eosinophils % (A) 0 %; HCT 26.7 % (39.0-53.0); Hypochromasia Slight; Lymphocytes % (A) 6 %; MCH 27.5 pg (25.0-35.0); MCHC 31.7 g/dL (31.0-37.0); MCV 86.6 fL (80.0-100.0); Mean Platelet Volume 7.1; Monocytes # (A) 0.9 k/uL (0-1.0); Monocytes % (A) 6 %; Neutrophils % (A) 87 %; Platelet Count 304 k/uL (150-450); RBC 3.08 m/uL (4.30-5.90); RDW 19.5 % (11.5-15.5); WBC 16.1 k/uL (3.8-10.6)
[2020-10-17 16:34] LABS: HGB 8.5 gm/dL (13.0-17.5)
--- NOTE | 2020-10-17 17:39 | P.CON ---
Consult Note - . Consult date: 10/17/20 Assessment/Plan:: Reason for consult- management of chronic medical problems History of present illness: Mr. Joiner is a 70-year-old male with a past medical history of coronary artery disease, dementia, diverticulitis, DVT, hypertension, hyperlipidemia, thyroid disorder, prostate cancer coming into the hospital yesterday with a chief complaint of abdominal pain. Patient was having pain mostly in the center of his abdomen, which was sharp in nature and 10 out of 10 in intensity. He also had one episode of vomiting along with diarrhea and stools that are dark in color. Patient is on aspirin and Plavix at home. In the ER patient had a CAT scan of the abdomen and pelvis showing diffuse pneumatosis intestinalis involving mid to distal small bowel loops with portal venous gas consistent with bowel ischemia. There is associated moderate grade years. So the patient was taken to the ER and had exploratory laparotomy done earlier this morning. Intraoperatively patient required pressor support to maintain his blood pressure. Postop patient was extubated and transferred to the ICU for further care. Postop patient had decreased urine output, so currently receiving his second liter of bolus in the ICU. He is currently awake and states that he has abdominal soreness. He denies having any chest pain or palpitations no difficulty in breathing. Patient has a Bowman's catheter in place with around 40 mL of urine. On reviewing his vitals his saturating at 93% on room air with blood pressure running around 98 x 58 and heart rate of 80s to 90s. He is on antibiotics in the form of Zosyn. REVIEW OF SYSTEMS: CONSTITUTIONAL: Denied having any fevers chills or rigors. HEENT: No recent visual problems or hearing problems. Denied any sore throat. CARDIOVASCULAR: No chest pain, orthopnea, PND, no palpitations, no syncope. PULMONARY: No cough or difficulty in breathing GASTROINTESTINAL: As per HPI NEUROLOGICAL: No headaches, no weakness. HEMATOLOGICAL: Denies any bleeding or petechiae. GENITOURINARY: Denies any burning micturition, frequency, or urgency. MUSCULOSKELETAL/RHEUMATOLOGICAL: Denies any joint pain, swelling, or any muscle pain. ENDOCRINE: Denies any polyuria or polydipsia. The rest of the 14-point review of systems is negative. Past Medical History Past Medical History: Coronary Artery Disease (CAD), Cancer, Dementia, Diabetes Mellitus, Deep Vein Thrombosis (DVT), Hyperlipidemia, Hypertension, Myocardial Infarction (ME), Thyroid Disorder Additional Past Medical History / Comment(s): prostate cancer with radiation 2019. anemia Last Myocardial Infarction Date:: 04/29/20 History of Any Multi-Drug Resistant Organisms: None Reported Past Surgical History: Appendectomy, Coronary Bypass/CABG, Heart Catheterization With Stent Additional Past Surgical History / Comment(s): heart stents and stents in magnus legs Past Anesthesia/Blood Transfusion Reactions: No Reported Reaction Date of Last Stent Placement:: 2014 Past Psychological History: Depression Additional Psychological History / Comment(s): dementia Smoking Status: Former smoker Past Alcohol Use History: None Reported Additional Past Alcohol Use History / Comment(s): smoker for 20 years quit age 38 Past Drug Use History: None Reported Medications and Allergies Home Medications Medication Instructions Recorded Confirmed Type Aspirin [Adult Low Dose Aspirin EC] 81 mg PO DAILY 05/18/20 10/16/20 History Atorvastatin [Lipitor] 80 mg PO DAILY 05/18/20 10/16/20 History Clopidogrel Bisulfate [Plavix] 75 mg PO DAILY 05/18/20 10/16/20 History Ezetimibe [Zetia] 10 mg PO DAILY 05/18/20 10/16/20 History Insulin Glargine [Lantus] 20 unit SQ HS 05/18/20 10/16/20 History QUEtiapine [SEROquel] 25 mg PO HS 05/18/20 10/16/20 History lisinopriL 20 mg PO BID 05/18/20 10/16/20 History Levothyroxine Sodium [Synthroid] 25 mg PO DAILY 08/04/20 10/16/20 History Ascorbic Acid [Vitamin C] 1,000 mg PO DAILY 10/16/20 10/16/20 History Cholecalciferol [Vitamin D3 (25 25 mcg PO DAILY 10/16/20 10/16/20 History Mcg = 1000 Iu)] Cyanocobalamin (Vitamin B-12) 2,500 mcg PO DAILY 10/16/20 10/16/20 History [Vitamin B-12] Cyclobenzaprine [Flexeril] 5 mg PO TID PRN 10/16/20 10/16/20 History Magnesium Oxide [Valdes] 500 mg PO DAILY 10/16/20 10/16/20 History Tolterodine ER [Detrol LA] 4 mg PO DAILY 10/16/20 10/16/20 History Allergies Allergy/AdvReac Type Severity Reaction Status Date / Time No Known Allergies Allergy Verified 10/16/20 18:30 Physical Exam Vitals: Vital Signs Temp Pulse Pulse Pulse Resp BP BP 10/17/20 13:00 92 16 98/54 10/17/20 12:47 91 16 113/59 10/17/20 12:30 90 16 120/86 10/17/20 12:20 98.8 F 92 20 115/58 10/17/20 09:26 97.6 F 97 122/71 10/17/20 08:28 97.3 F L 98 15 122/77 10/17/20 05:00 96.7 F L 97 16 121/77 10/16/20 22:12 97.4 F L 103 H 16 148/76 10/16/20 21:48 98.0 F 86 20 156/72 10/16/20 20:04 94 20 158/77 10/16/20 17:39 97.6 F 90 20 158/78 Pulse Ox 10/17/20 13:00 97 10/17/20 12:47 100 10/17/20 12:30 100 10/17/20 12:20 98 10/17/20 09:26 99 10/17/20 08:28 10/17/20 05:00 94 L 10/16/20 22:12 98 10/16/20 21:48 98 10/16/20 20:04 100 10/16/20 17:39 99 Intake and Output 10/17/20 10/17/20 10/17/20 06:59 14:59 22:59 Intake Total 0 1200 Output Total 195 Balance 0 1005 Intake: IV 1200 Oral 0 Output: Urine 170 Estimated Blood Loss 25 Other: Voiding Method Indwelling Catheter Weight 70.307 kg PHYSICAL EXAMINATION: GENERAL: The patient is alert and oriented x3, not in any acute distress. HEENT: Pupils are round and equally reacting to light. EOMI. No scleral icterus. mild conjunctival pallor. Normocephalic, atraumatic. No pharyngeal erythema. No thyromegaly. CARDIOVASCULAR: S1 and S2 present. PULMONARY: Chest is clear to auscultation, no wheezing or crackles. ABDOMEN: Surgical scar in place covered with dressing. Dressing appears clean with no bleeding. Hypoactive bowel sounds. MUSCULOSKELETAL: No joint swelling or deformity. EXTREMITIES: No cyanosis, clubbing, or pedal edema. NEUROLOGICAL: Gross neurological examination did not reveal any focal deficits. SKIN: No rashes. Results CBC & Chem 7: 10/16/20 18:14 10/16/20 18:14 Labs: Abnormal Lab Results - Last 24 Hours (Table) 10/16/20 10/16/20 10/16/20 Range/Units 18:14 18:14 18:14 WBC 15.3 H (3.8-10.6) k/uL RBC 3.85 L (4.30-5.90) m/uL Hgb 10.5 L (13.0-17.5) gm/dL Hct 32.4 L (39.0-53.0) % RDW 18.9 H (11.5-15.5) % Neutrophils # 11.5 H (1.3-7.7) k/uL Monocytes # 1.2 H (0-1.0) k/uL APTT 18.7 L (22.0-30.0) sec Sodium 134 L (137-145) mmol/L BUN 30 H (9-20) mg/dL Glucose 245 H (74-99) mg/dL POC Glucose (mg/dL) (75-99) mg/dL Plasma Lactic Acid [place] (0.7-2.0) mmol/L Total Protein 6.0 L (6.3-8.2) g/dL Albumin 3.3 L (3.5-5.0) g/dL 10/16/20 10/16/20 10/17/20 Range/Units 18:14 21:34 00:22 WBC (3.8-10.6) k/uL RBC (4.30-5.90) m/uL Hgb (13.0-17.5) gm/dL Hct (39.0-53.0) % RDW (11.5-15.5) % Neutrophils # (1.3-7.7) k/uL Monocytes # (0-1.0) k/uL APTT (22.0-30.0) sec Sodium (137-145) mmol/L BUN (9-20) mg/dL Glucose (74-99) mg/dL POC Glucose (mg/dL) (75-99) mg/dL Plasma Lactic Acid [place] 2.1 H* 4.2 H* 5.1 H* (0.7-2.0) mmol/L Total Protein (6.3-8.2) g/dL Albumin (3.5-5.0) g/dL 10/17/20 10/17/20 10/17/20 Range/Units 04:23 07:37 08:30 WBC (3.8-10.6) k/uL RBC (4.30-5.90) m/uL Hgb (13.0-17.5) gm/dL Hct (39.0-53.0) % RDW (11.5-15.5) % Neutrophils # (1.3-7.7) k/uL Monocytes # (0-1.0) k/uL APTT (22.0-30.0) sec Sodium (137-145) mmol/L BUN (9-20) mg/dL Glucose (74-99) mg/dL POC Glucose (mg/dL) 422 H (75-99) mg/dL Plasma Lactic Acid [place] 7.3 H* 5.4 H* (0.7-2.0) mmol/L Total Protein (6.3-8.2) g/dL Albumin (3.5-5.0) g/dL 10/17/20 10/17/20 10/17/20 Range/Units 10:10 12:30 13:24 WBC (3.8-10.6) k/uL RBC (4.30-5.90) m/uL Hgb (13.0-17.5) gm/dL Hct (39.0-53.0) % RDW (11.5-15.5) % Neutrophils # (1.3-7.7) k/uL Monocytes # (0-1.0) k/uL APTT (22.0-30.0) sec Sodium (137-145) mmol/L BUN (9-20) mg/dL Glucose (74-99) mg/dL POC Glucose (mg/dL) 371 H 331 H 284 H (75-99) mg/dL Plasma Lactic Acid [place] (0.7-2.0) mmol/L Total Protein (6.3-8.2) g/dL Albumin (3.5-5.0) g/dL ASSESSMENT Acute small bowel ischemia with pneumatosis intestinalis Status post exploration laparotomy with bowel resection and lysis of adhesions- postoperative day 0 Hypotension - postop DD: sepsis versus hypovolemia versus blood loss Lactic acidosis Anemia- could be due to blood loss Coronary artery disease status post CABG Prostate cancer with radiation therapy Type 2 diabetes mellitus Peripheral vascular disease with previous stenting of lower extremities Hypertension Hyperlipidemia Hypothyroidism Protein calorie malnutrition moderate PLAN: Patient to be continued on aggressive IV fluid resuscitation. Transfuse if hemoglobin less than 7. Continue antibiotics in the form of Zosyn. Patient has been started on insulin drip for better blood glucose control. Continue with the rest of his current medication regimen. Continue with GI DVT prophylaxis. Further recommendations to follow depending on the progress of the patient. Thank you for the consultation.
[2020-10-17] MEDS: PIPERACILLIN-TAZOBACTAM 3.375 GM in SODIUM CHLORIDE 0.9% 100 ML IVPB SCH ×2 (18:15→18:17)
[2020-10-17] MEDS: PANTOPRAZOLE 40 MG/10 ML VIAL IVP SCH (18:15)
[2020-10-17 19:14] LABS: Glucose,Whole Blood 189 mg/dL (75-99)
[2020-10-17 20:28] LABS: Glucose,Whole Blood 171 mg/dL (75-99)
[2020-10-17] MEDS: HYDROmorphone 0.5 MG/0.5 ML SYRINGE IVP PRN (21:17)
[2020-10-17 21:24] LABS: Glucose,Whole Blood 172 mg/dL (75-99)
[2020-10-17 22:34] LABS: Glucose,Whole Blood 134 mg/dL (75-99)
[2020-10-17 23:23] LABS: Glucose,Whole Blood 128 mg/dL (75-99)
[2020-10-17 23:56] LABS: Glucose,Whole Blood 113 mg/dL (75-99)
[2020-10-18 00:52] LABS: Glucose,Whole Blood 92 mg/dL (75-99)
[2020-10-18] MEDS: HEPARIN SODIUM,PORCINE 5,000 UNIT/ML 1 ML VIAL SQ SCH ×3 (00:58→18:23)
[2020-10-18] MEDS: PIPERACILLIN-TAZOBACTAM 3.375 GM in SODIUM CHLORIDE 0.9% 100 ML IVPB SCH ×3 (00:58→18:24)
[2020-10-18 01:00] LABS: Anisocytosis Slight; Basophils % (A) 0 %; Eosinophils # (A) 0.1 k/uL (0-0.7); Eosinophils % (A) 0 %; HCT 30.3 % (39.0-53.0); HGB 9.7 gm/dL (13.0-17.5); Hypochromasia Slight; Lymphocytes # (A) 1.2 k/uL (1.0-4.8); Lymphocytes % (A) 7 %; MCH 27.9 pg (25.0-35.0); MCV 87.1 fL (80.0-100.0); Monocytes % (A) 6 %; Neutrophils # (A) 14.6 k/uL (1.3-7.7); Neutrophils % (A) 85 %; Platelet Count 263 k/uL (150-450); RBC 3.48 m/uL (4.30-5.90); RDW 18.6 % (11.5-15.5); WBC 17.2 k/uL (3.8-10.6)
[2020-10-18 02:07] LABS: Glucose,Whole Blood 95 mg/dL (75-99)
[2020-10-18 04:10] LABS: Glucose,Whole Blood 89 mg/dL (75-99)
[2020-10-18] MEDS: HYDROmorphone 0.5 MG/0.5 ML SYRINGE IVP PRN ×3 (04:11→18:23)
[2020-10-18 04:22] LABS: Anisocytosis Slight; Basophils % (A) 0 %; Eosinophils % (A) 0 %; HCT 29.6 % (39.0-53.0); Lymphocytes # (A) 1.1 k/uL (1.0-4.8); Lymphocytes % (A) 7 %; MCH 29.2 pg (25.0-35.0); MCHC 33.7 g/dL (31.0-37.0); MCV 86.7 fL (80.0-100.0); Mean Platelet Volume 7.3; Monocytes # (A) 0.9 k/uL (0-1.0); Monocytes % (A) 5 %; Neutrophils # (A) 14.4 k/uL (1.3-7.7); Neutrophils % (A) 86 %; Platelet Count 258 k/uL (150-450); Poikilocytosis Slight; RBC 3.41 m/uL (4.30-5.90); RDW 18.7 % (11.5-15.5); WBC 16.6 k/uL (3.8-10.6)
[2020-10-18 04:25] LABS: INR 1.2 (<1.2); Prothrombin Time 12.3 sec (9.0-12.0)
[2020-10-18 04:54] LABS: ALT 306 U/L (4-49); AST 307 U/L (17-59); African American GFR (CKD) >90 (>60 ml/min/1.73 sqM); Albumin 2.3 g/dL (3.5-5.0); Alkaline Phosphatase 70 U/L (38-126); Anion Gap 3 mmol/L; Blood Urea Nitrogen 33 mg/dL (9-20); Calcium 8.3 mg/dL (8.4-10.2); Carbon Dioxide 29 mmol/L (22-30); Chloride 106 mmol/L (98-107); Glucose 100 mg/dL (74-99); Non-African American GFR(CKD) 80 (>60 ml/min/1.73 sqM); Potassium 4.7 mmol/L (3.5-5.1); Sodium 138 mmol/L (137-145); Total Bilirubin 0.6 mg/dL (0.2-1.3); Total Protein 4.4 g/dL (6.3-8.2)
[2020-10-18 05:28] LABS: Glucose,Whole Blood 120 mg/dL (75-99)
[2020-10-18 06:28] LABS: Glucose,Whole Blood 100 mg/dL (75-99)
--- NOTE | 2020-10-18 07:16 | P.PN ---
Subjective Progress Note Date: 10/18/20 70-year-old male patient who arrived from the operating room where the patient had a extensive laparotomy, lysis of adhesions and small bowel resection for ischemic bowel. The patient was found to have ischemic bowel intraoperatively. Postop, the patient was extubated and patient was brought into the ICU for further care. At this point in time the patient is on oxygen at 3 L and his pulse ox around 93%. His BP is 101/56. He has nausea upper extremity peripheral IV. No central lines inserted. He has a Bowman catheter in place. He is currently running IV fluids at the rate of 150 mL an hour of normal saline. He will be given a 2 L bolus immediately here in the ICU knowing that his urine output has been in the order of 10-20 mL an hour. The patient came into the emergency department on October 16 and the patient was complaining of abdominal pain and he also had some lactic acidosis. Note that he has vasculopathy angios diabetes mellitus hypertension and underlying dementia and he is also known to have CAD and prostate cancer for which she has associated radiation therapy. The patient had a CAT scan of the abdomen and pelvis that was done in the emergency department yesterday and the CAT scan showed no evidence of any free air. There was diffuse pneumatosis intestinalis involving the mid and the distal portion of the small bowel loops with 40 venous gas consistent with bowel ischemia. There was also associated mild to moderate grade of an ileus. For that reason, the patient was taken to the operating room today. Note that his lactic acid level was 5.4. Currently is awake. Is unresponsive. Moving all 4 extremities. The patient already received a total of 4 L of fluid boluses. He is currently on IV Zosyn. Today's evaluation of 10/18/2020, the patient is postop day #1 following exploratory laparotomy and small bowel resection for underlying bowel ischemia. The patient was extubated and recovered. He remains extubated for now. Is on oxygen at 3 L and his pulse ox is around 97%. He is not using his incentive spirometer aggressively. Hemodynamically, he is stable on no pressors. IV fluids are running in the form of normal saline at rate of 150 mL an hour. The fluid balance over the past 24 hours has been +4.8 L of the patient received several fluid boluses. His urine output was lower running between 10-20 mL an hour and the last bolus of fluid was given to him at around 8 PM yesterday. The patient's blood work from today shows a white cell count of 16 with a hemoglobin of 10. Note that the patient received also units of packed RBC yesterday. His BUN is 33 with a creatinine of 0.9. LFTs are improving including an AST of 307, ALT of 306 and the rest of the electrodes are all within normal limits. Albumin is down to 2.3. Surgical wound site over the anterior abdominal wall is dry clean and intact. The patient has no drains. Bowel sounds are quite hypoactive. Chest x-ray showing air under the right hemidiaphragm, likely posts urgical. The patient has signs of previous thoracotomy. Atelectatic changes can be seen also in the lung bases bilaterally. There is also right pleural thickening. Note that the patient's lactic is down to 1.2 acute on insulin drip last night and the patient was placed on insulin drip yesterday upon my request and the blood sugars under tighter control and current insulin drip is off and the patient is on a sliding scale coverage. Objective - Vital Signs Vital signs: Vital Signs Temp 98.4 F 10/18/20 00:00 Pulse 86 10/18/20 06:00 Resp 12 10/18/20 06:00 BP 107/56 10/18/20 06:00 Pulse Ox 95 10/18/20 06:00 Intake & Output 10/17/20 10/18/20 10/18/20 18:59 06:59 18:59 Intake Total 3200 2119.293 Output Total 275 225 Balance 2925 1894.293 Weight 70.307 kg 79.3 kg Intake: IV 3200 1800 Lactated Ringers 2000 1800 Intake, IV Titration 9.293 Amount Insulin Regular 100 unit 9.293 In Sodium Chloride 0.9% 100 ml @ Per Protocol IV .Q0M [facility] Rx#:[id number] Blood Product 310 Rc As-1 Unit 310 [id number] Output: Urine 250 225 Estimated Blood Loss 25 Other: Voiding Method Indwelling Catheter Indwelling Catheter - Exam Gen. appearance the patient is calm and comfortable likely distress Head exam was generally normal. There was no scleral icterus or corneal arcus. Mucous membranes were moist. Neck was supple and without jugular venous distension, thyromegaly, or carotid bruits. Carotids were easily palpable bilaterally. There was no adenopathy. Lungs sounds are diminished yet the BS diminished symmetrical bilaterally. Cardiac exam revealed the PMI to be normally situated and sized. The rhythm was regular and no extrasystoles were noted during several minutes of auscultation. The first and second heart sounds were normal and physiologic splitting of the second heart sound was noted. There were no murmurs, rubs, clicks, or gallops. Abdomen is soft. Surgical wound site is dry clean and intact. No direct tenderness. No rebound tenderness. No guarding. The patient's has a clean incision sites. No organomegaly. No bowel sounds. Examination of the extremities revealed easily palpable radial, femoral and pedal pulses. There was no cyanosis, clubbing or edema. Examination of the skin revealed no evidence of significant rashes, suspicious appearing nevi or other concerning lesions. Neurologically, the patient is awake and alert and the patient does not have any focal neurological deficit. Cranial nerves are essentially intact. - Labs CBC & Chem 7: 10/18/20 03:59 10/18/20 03:59 Labs: Abnormal Lab Results - Last 24 Hours (Table) 10/17/20 10/17/20 10/17/20 Range/Units 07:37 08:30 10:10 WBC (3.8-10.6) k/uL RBC (4.30-5.90) m/uL Hgb (13.0-17.5) gm/dL Hct (39.0-53.0) % RDW (11.5-15.5) % Neutrophils # (1.3-7.7) k/uL PT (9.0-12.0) sec INR (<1.2) BUN (9-20) mg/dL Glucose (74-99) mg/dL POC Glucose (mg/dL) 422 H 371 H (75-99) mg/dL Plasma Lactic Acid [place] 5.4 H* (0.7-2.0) mmol/L Calcium (8.4-10.2) mg/dL AST (17-59) U/L ALT (4-49) U/L Total Protein (6.3-8.2) g/dL Albumin (3.5-5.0) g/dL Crossmatch 03/23/21 03/23/21 03/23/21 Range/Units 10:39 12:30 13:24 WBC (3.8-10.6) k/uL RBC (4.30-5.90) m/uL Hgb (13.0-17.5) gm/dL Hct (39.0-53.0) % RDW (11.5-15.5) % Neutrophils # (1.3-7.7) k/uL PT (9.0-12.0) sec INR (<1.2) BUN (9-20) mg/dL Glucose (74-99) mg/dL POC Glucose (mg/dL) 331 H 284 H (75-99) mg/dL Plasma Lactic Acid [place] (0.7-2.0) mmol/L Calcium (8.4-10.2) mg/dL AST (17-59) U/L ALT (4-49) U/L Total Protein (6.3-8.2) g/dL Albumin (3.5-5.0) g/dL Crossmatch See Detail 10/17/20 10/17/20 10/17/20 Range/Units 15:40 15:40 15:40 WBC 16.1 H (3.8-10.6) k/uL RBC 3.08 L (4.30-5.90) m/uL Hgb 8.5 L D (13.0-17.5) gm/dL Hct 26.7 L (39.0-53.0) % RDW 19.5 H (11.5-15.5) % Neutrophils # 14.0 H (1.3-7.7) k/uL PT 12.2 H (9.0-12.0) sec INR 1.2 H (<1.2) BUN 35 H (9-20) mg/dL Glucose 182 H (74-99) mg/dL POC Glucose (mg/dL) (75-99) mg/dL Plasma Lactic Acid [place] (0.7-2.0) mmol/L Calcium (8.4-10.2) mg/dL AST 457 H (17-59) U/L ALT 295 H (4-49) U/L Total Protein 4.5 L (6.3-8.2) g/dL Albumin 2.3 L (3.5-5.0) g/dL Crossmatch 10/17/20 10/17/20 10/17/20 Range/Units 15:40 19:12 20:27 WBC (3.8-10.6) k/uL RBC (4.30-5.90) m/uL Hgb (13.0-17.5) gm/dL Hct (39.0-53.0) % RDW (11.5-15.5) % Neutrophils # (1.3-7.7) k/uL PT (9.0-12.0) sec INR (<1.2) BUN (9-20) mg/dL Glucose (74-99) mg/dL POC Glucose (mg/dL) 189 H 171 H (75-99) mg/dL Plasma Lactic Acid [place] 4.0 H* (0.7-2.0) mmol/L Calcium (8.4-10.2) mg/dL AST (17-59) U/L ALT (4-49) U/L Total Protein (6.3-8.2) g/dL Albumin (3.5-5.0) g/dL Crossmatch 10/17/20 10/17/20 10/17/20 Range/Units 21:22 22:32 23:21 WBC (3.8-10.6) k/uL RBC (4.30-5.90) m/uL Hgb (13.0-17.5) gm/dL Hct (39.0-53.0) % RDW (11.5-15.5) % Neutrophils # (1.3-7.7) k/uL PT (9.0-12.0) sec INR (<1.2) BUN (9-20) mg/dL Glucose (74-99) mg/dL POC Glucose (mg/dL) 172 H 134 H 128 H (75-99) mg/dL Plasma Lactic Acid [place] (0.7-2.0) mmol/L Calcium (8.4-10.2) mg/dL AST (17-59) U/L ALT (4-49) U/L Total Protein (6.3-8.2) g/dL Albumin (3.5-5.0) g/dL Crossmatch 10/17/20 10/18/20 10/18/20 Range/Units 23:55 00:48 03:59 WBC 17.2 H 16.6 H (3.8-10.6) k/uL RBC 3.48 L 3.41 L (4.30-5.90) m/uL Hgb 9.7 L 10.0 L (13.0-17.5) gm/dL Hct 30.3 L 29.6 L (39.0-53.0) % RDW 18.6 H 18.7 H (11.5-15.5) % Neutrophils # 14.6 H 14.4 H (1.3-7.7) k/uL PT (9.0-12.0) sec INR (<1.2) BUN (9-20) mg/dL Glucose (74-99) mg/dL POC Glucose (mg/dL) 113 H (75-99) mg/dL Plasma Lactic Acid [place] (0.7-2.0) mmol/L Calcium (8.4-10.2) mg/dL AST (17-59) U/L ALT (4-49) U/L Total Protein (6.3-8.2) g/dL Albumin (3.5-5.0) g/dL Crossmatch 10/18/20 10/18/20 10/18/20 Range/Units 03:59 03:59 05:26 WBC (3.8-10.6) k/uL RBC (4.30-5.90) m/uL Hgb (13.0-17.5) gm/dL Hct (39.0-53.0) % RDW (11.5-15.5) % Neutrophils # (1.3-7.7) k/uL PT 12.3 H (9.0-12.0) sec INR 1.2 H (<1.2) BUN 33 H (9-20) mg/dL Glucose 100 H (74-99) mg/dL POC Glucose (mg/dL) 120 H (75-99) mg/dL Plasma Lactic Acid [place] (0.7-2.0) mmol/L Calcium 8.3 L (8.4-10.2) mg/dL AST 307 H (17-59) U/L ALT 306 H (4-49) U/L Total Protein 4.4 L (6.3-8.2) g/dL Albumin 2.3 L (3.5-5.0) g/dL Crossmatch 10/18/20 Range/Units 06:26 WBC (3.8-10.6) k/uL RBC (4.30-5.90) m/uL Hgb (13.0-17.5) gm/dL Hct (39.0-53.0) % RDW (11.5-15.5) % Neutrophils # (1.3-7.7) k/uL PT (9.0-12.0) sec INR (<1.2) BUN (9-20) mg/dL Glucose (74-99) mg/dL POC Glucose (mg/dL) 100 H (75-99) mg/dL Plasma Lactic Acid [place] (0.7-2.0) mmol/L Calcium (8.4-10.2) mg/dL AST (17-59) U/L ALT (4-49) U/L Total Protein (6.3-8.2) g/dL Albumin (3.5-5.0) g/dL Crossmatch Assessment and Plan Plan: 1 Acute ischemic small bowel with pneumatosis intestinalis, the patient is post that the laparotomy and small bowel resection and the patient is postop day #1. The patient is doing well. The chest x-ray from today showing some. On the right hemidiaphragm which probably is postsurgical in nature. Surgery to reevaluate the patient for possible reexploration of the small bowel. Clinically however, the patient is doing well. He has responded nicely. He is hemodynamically stable. His lactic acid level is down to 1.2 and the patient's abdomen seems to be quite soft and the patient is not having any significant pain. Observation is reasonable at this point in time here in the intensive care unit. Further discussion to be done with general surgery. 2 hypotension secondary to above, consider underlying sepsis of an abdominal source secondary to bowel ischemia. The patient has received a total of 4 L of IV fluids and currently is on IV Zosyn. The patient is well resuscitated for now and the patient is hemodynamically stable on no pressors. Transfused with a unit of packed RBC. 3 acute lactic acidosis secondary to above, Lactic acid level is down to 1.2 4 acute leukocytosis , White count is 16.6, stable 5 coronary artery disease with previous bypass surgery 6 diabetes mellitus witimproved blood sugar control and the patient is currently off insulin drip 7 peripheral vascular disease with previous intervention and stenting of the lower extremities 8 hypertension 9 hyperlipidemia 10 hypothyroidism 11 prostate cancer with previous radiation therapy Plan Continue NS at the rate of 150 mL an hour Monitor lactic acid level the levels are down to 1.2 We'll discuss further plan with general surgery, possible reexploration at a later stage. There is any concern of ongoing bowel ischemia Continue IV Zosyn Started patient on insulin drip for blood sugar control, the patient is curr ently on Still coverage with improved blood sugar control Dilaudid for pain control Heparin subcu for DVT prophylaxis 5000 every 8 IV Protonix Incentive spirometer We'll continue to follow her as ICU.
--- NOTE | 2020-10-18 08:58 | XR ---
EXAMINATION TYPE: XR chest 1V DATE OF EXAM: 10/18/2020 COMPARISON: 10/17/2020 HISTORY: Shortness of breath TECHNIQUE: Single frontal view of the chest is obtained. FINDINGS: Heart is enlarged and there is bilateral pleural thickening and calcification there is a l arge amount of free intraperitoneal air. Report called to the patient's ICU nurse. Postoperative king ges are seen. Atherosclerotic change aorta. The heart is enlarged. Hyperinflation suggests COPD. IMPRESSION: 1. Bilateral areas of infiltrate and pleural effusion stable. There remains a large amount of free in traperitoneal air which was also reported on the previous exam.
[2020-10-18] MEDS: PANTOPRAZOLE 40 MG/10 ML VIAL IVP SCH (09:41)
[2020-10-18] MEDS: INSULIN ASPART (NovoLOG) 100 UNIT/ML VIAL SQ SCH ×4 (09:41→21:53)
--- NOTE | 2020-10-18 10:25 | CDI ---
Documentation Clarification Form Date: 10/18/2020 09:40:01 AM From: Lorena Gore RN CCDS Admit Date: 10/16/2020 08:03:00 PM Patient Name: Tony Joiner Visit Number: [id number] Discharge Date: ATTENTION: The Clinical Documentation Specialists (CDI) and [facility] Coding Staff appreciate your assistance in clarifying documentation. Please respond to the clarification below the line at the bottom and electronically sign. The CDI & [facility] Coding staff will review the response and follow-up if needed. Please note: Queries are made part of the Legal Health Record. If you have any questions, please contact the author of this message via ITS. Dr. Tom Darnell The patient presented with the following clinical indicators. Additional clarification regarding the etiology/cause of the clinical indicators is requested. History/Risk Factors: 70-year-old male presents to ED with worsening abdominal pain that started about a month ago. Medical History: Diverticulosis, DM and Prostate cancer with radiation treatment in 2019. H&P 10/17. Clinical Indicators: Patient admitted with abdominal pain secondary to ischemic small bowel. Internal medicine consults 10/17 Hypotension -postop DD: sepsis vs hypovolemia vs blood loss. Official Court Reporter consult 10/17 Hypotension secondary to above, consider underlying sepsis of an abdominal source secondary to bowel ischemia. Procedure note 10/17: The midportion of the small bowel appeared to be ischemic. There is patchy necrosis seen throughout this area. Approximately half of small bowel was involved with the necrosis. WBC 10/16: 15.3 Lactic acid 10/16: 2.1 Neutrophils 10/16: 11.5 Vitals signs 10/16: B/P 158/78; HR 90; Temp 97.6 F Oral; RR 20; SpO2 99% ra Vital signs 10/17 1400: B/P 99/64; HR 91; RR 17; SpO2 93% 2L nasal cannula Treatment: Antibiotics: 10/16 Zosyn 3.75gm IVPB x1; 10/17 Zosyn 3.375gm IVPB Q8H. IV Bolus: 10/16: 0.9NS 2L bolus. 10/17 0.9NS 1L bolus. In your professional opinion, please clarify if these findings signify one of the following conditions: Sepsis POA Sepsis, Not POA Sepsis ruled out Other, please specify Unable to determine SIRS Criteria: 2 or more of the following may indicate SIRS Temperature < 96.8F (36C) or > 101.0F (38.3C) Heart Rate > 90 bpm Respiratory Rate > 20 breaths/min or PaCO2 < 32 mmHg White Blood Cell Count > 12,000 or < 4,000 cells/mm3 or > 10% bands (Template Last Reviewed: August 2020) Sepsis present on admission MTDD
--- NOTE | 2020-10-18 10:32 | P.CRDCN ---
History of Present Illness Consult date: 10/18/20 History of present illness: HISTORY OF PRESENT ILLNESS: This is a 70-year-old male with a past medical history significant for coronary artery disease with previous stenting and CABG 5 in 1998, peripheral vascular disease with previous stenting of his lower extremities, diabetes mellitus, DVT, hypertension, hyperlipidemia, prostate cancer, and former nicotine dependence. Patient does not follow with a helmet hat puncher. Patient states he recently moved to [place] from [place] and used to follow with a helmet hat puncher in [place]. We have been asked to see the patient in consultation for cardiac history. Patient is status post exploratory laparotomy, lysis of adhesions, and small bowel resection secondary to ischemic bowel on 10/17/[address] Darnell. Patient examined at the bedside in the intensive care unit. Patient denies chest pain or pressure. Denies shortness of breath. EKG reveals sinus mechanism with T-wave inversions laterally Chest xray bilateral areas of infiltrate and pleural effusions. Stable from previous exam. Laboratory data: WBC 16.6. Hemoglobin 10.0. Platelet count 258. Sodium 138. Potassium 4.7. BUN 33. Creatinine 0.95. AST 307. ALT 306. Lactic acid 4.2. Repeat 1.2. Current home cardiac medications include study at 10 mg daily, Plavix 75 mg daily, atorvastatin 80 mg daily, lisinopril 20 mg twice a day, and aspirin 81 mg daily REVIEW OF SYSTEMS: At the time of my exam: CONSTITUTIONAL: Denies fever or chills. HEENT: Denies blurred vision, vision changes, or eye pain. Denies hemoptysis CARDIOVASCULAR: Denies chest pain. Denies orthopnea. Denies PND. Denies palpitations RESPIRATORY: Denies shortness of breath. GASTROINTESTINAL: Reports postoperative abdominal pain. Denies nausea or vomiting. HEMATOLOGIC: Denies bleeding disorders. GENITOURINARY: Denies any blood in urine. SKIN: Denies pruitis. Denies rash. PHYSICAL EXAM: VITAL SIGNS: Reviewed. GENERAL: Well-developed in no acute distress. HEENT: Head is normocephalic. Pupils are equal, round. Sclerae anicteric. Mucous membranes of the mouth are moist. Neck supple. No JVD or thyromegaly LUNGS: Respirations even and unlabored. Lungs diminished bilaterally. HEART: Regular rate and rhythm. S1 and S2 heard. Systolic murmur noted. ABDOMEN: Soft. Appropriate surgical tenderness. Dressing noted to abdomen. EXTREMITIES: Normal range of motion. No clubbing or cyanosis. Peripheral pulses intact. No lower extremity edema NEUROLOGIC: Awake and alert. Oriented x 3. ASSESSMENT: Acute ischemic bowel with pneumatosis intestinalis, status post exploratory laparotomy, lysis of adhesions, and small bowel resection Hypotension, improved with IV hydration Leukocytosis Lactic acidosis, resolved Elevated LFTs Coronary artery disease with previous stenting and CABG 1998 Peripheral vascular disease with previous stenting of the lower extremities Diabetes mellitus Hypertension Hyperlipidemia History of prostate cancer Former nicotine dependence PLAN: Obtain 2D echo to assess cardiac structure and function Resume home cardiac medications when cleared with general surgery (aspirin, Plavix, Lipitor, Zetia, and lisinopril) Continue telemetry monitoring Patient is currently stable from a cardiac perspective Further recommendations pending patient course Nurse practitioner note has been reviewed by physician. Signing provider agrees with the documented findings, assessment, and plan of care. Past Medical History Past Medical History: Coronary Artery Disease (CAD), Cancer, Dementia, Diabetes Mellitus, Deep Vein Thrombosis (DVT), Hyperlipidemia, Hypertension, Myocardial Infarction (DC), Thyroid Disorder Additional Past Medical History / Comment(s): prostate cancer with radiation 2018. anemia Last Myocardial Infarction Date:: 04/29/20 History of Any Multi-Drug Resistant Organisms: None Reported Past Surgical History: Appendectomy, Coronary Bypass/CABG, Heart Catheterization With Stent Additional Past Surgical History / Comment(s): heart stents and stents in magnus legs Past Anesthesia/Blood Transfusion Reactions: No Reported Reaction Date of Last Stent Placement:: 2014 Past Psychological History: Depression Additional Psychological History / Comment(s): dementia Smoking Status: Former smoker Past Alcohol Use History: None Reported Additional Past Alcohol Use History / Comment(s): smoker for 20 years quit age 38 Past Drug Use History: None Reported Medications and Allergies Home Medications Medication Instructions Recorded Confirmed Type Aspirin [Adult Low Dose Aspirin EC] 81 mg PO DAILY 05/18/20 10/16/20 History Atorvastatin [Lipitor] 80 mg PO DAILY 05/18/20 10/16/20 History Clopidogrel Bisulfate [Plavix] 75 mg PO DAILY 05/18/20 10/16/20 History Ezetimibe [Zetia] 10 mg PO DAILY 05/18/20 10/16/20 History Insulin Glargine [Lantus] 20 unit SQ HS 05/18/20 10/16/20 History QUEtiapine [SEROquel] 25 mg PO HS 05/18/20 10/16/20 History lisinopriL 20 mg PO BID 05/18/20 10/16/20 History Levothyroxine Sodium [Synthroid] 25 mg PO DAILY 08/04/20 10/16/20 History Ascorbic Acid [Vitamin C] 1,000 mg PO DAILY 10/16/20 10/16/20 History Cholecalciferol [Vitamin D3 (25 25 mcg PO DAILY 10/16/20 10/16/20 History Mcg = 1000 Iu)] Cyanocobalamin (Vitamin B-12) 2,500 mcg PO DAILY 10/16/20 10/16/20 History [Vitamin B-12] Cyclobenzaprine [Flexeril] 5 mg PO TID PRN 10/16/20 10/16/20 History Magnesium Oxide [Valdes] 500 mg PO DAILY 10/16/20 10/16/20 History Tolterodine ER [Detrol LA] 4 mg PO DAILY 10/16/20 10/16/20 History Allergies Allergy/AdvReac Type Severity Reaction Status Date / Time No Known Allergies Allergy Verified 10/16/20 18:30 Physical Exam Vitals: Vital Signs Temp Pulse Pulse Resp BP BP Pulse Ox 10/18/20 07:00 87 12 113/55 89 L 10/18/20 06:00 86 12 107/56 95 10/18/20 05:00 86 10 L 107/51 98 10/18/20 04:00 86 92 11 L 110/62 97 10/18/20 03:00 86 10 L 109/45 98 10/18/20 02:00 82 10 L 109/55 99 10/18/20 01:00 81 11 L 103/60 98 10/18/20 00:00 98.4 F 84 92 9 L 104/57 99 10/17/20 23:15 97.8 F 84 11 L 104/57 98 10/17/20 23:14 81 12 104/59 97 10/17/20 23:00 84 11 L 102/57 97 10/17/20 22:00 85 11 L 104/57 95 10/17/20 21:08 81 12 106/60 97 10/17/20 21:00 88 0 L 111/60 96 10/17/20 20:38 83 11 L 111/60 98 10/17/20 20:28 98.1 F 82 10 L 106/56 99 10/17/20 20:10 99 10/17/20 20:00 97.9 F 83 92 6 L 109/60 96 10/17/20 19:00 86 17 105/58 94 L 10/17/20 18:00 81 16 103/57 92 L 10/17/20 17:00 84 18 100/61 97 10/17/20 16:00 87 17 98/58 98 10/17/20 15:00 90 14 97/57 92 L 10/17/20 14:00 91 17 99/64 93 L 10/17/20 13:24 90 13 10/17/20 13:00 92 16 98/54 97 10/17/20 12:47 91 16 113/59 100 10/17/20 12:30 90 16 120/86 100 10/17/20 12:20 98.8 F 92 20 115/58 98 Intake and Output 10/17/20 10/18/20 10/18/20 22:59 06:59 14:59 Intake Total 2606.919 1512.374 150 Output Total 170 135 10 Balance 2436.919 1377.374 140 Intake: IV 2600 1200 150 Lactated Ringers 2600 1200 150 Intake, IV Titration 6.919 2.374 Amount Insulin Regular 100 unit 6.919 2.374 In Sodium Chloride 0.9% 100 ml @ Per Protocol IV .Q0M [facility] Rx#:[id number] Blood Product 0 310 Rc As-1 Unit 0 310 [id number] Output: Urine 170 135 10 Other: Voiding Method Indwelling Catheter Indwelling Catheter Weight 79.3 kg Results 10/18/20 03:59 10/18/20 03:59 Cardiac Enzymes 10/17/20 10/18/20 Range/Units 15:40 03:59 AST 457 H 307 H (17-59) U/L Coagulation 10/17/20 10/18/20 Range/Units 15:40 03:59 PT 12.2 H 12.3 H (9.0-12.0) sec CBC 10/17/20 10/18/20 10/18/20 Range/Units 15:40 00:48 03:59 WBC 16.1 H 17.2 H 16.6 H (3.8-10.6) k/uL RBC 3.08 L 3.48 L 3.41 L (4.30-5.90) m/uL Hgb 8.5 L D 9.7 L 10.0 L (13.0-17.5) gm/dL Hct 26.7 L 30.3 L 29.6 L (39.0-53.0) % Plt Count 304 263 258 (150-450) k/uL Comprehensive Metabolic Panel 10/17/20 10/18/20 Range/Units 15:40 03:59 Sodium 142 138 (137-145) mmol/L Potassium 4.2 4.7 (3.5-5.1) mmol/L Chloride 106 106 (98-107) mmol/L Carbon Dioxide 27 29 (22-30) mmol/L BUN 35 H 33 H (9-20) mg/dL Creatinine 0.98 0.95 (0.66-1.25) mg/dL Glucose 182 H 100 H (74-99) mg/dL Calcium 8.4 8.3 L (8.4-10.2) mg/dL AST 457 H 307 H (17-59) U/L ALT 295 H 306 H (4-49) U/L Alkaline Phosphatase 66 70 (38-126) U/L Total Protein 4.5 L 4.4 L (6.3-8.2) g/dL Albumin 2.3 L 2.3 L (3.5-5.0) g/dL Current Medications Generic Name Dose Route Start Last Admin Trade Name Freq PRN Reason Stop Dose Admin Heparin Sodium (Porcine) 5,000 unit 10/18/20 00:00 10/18/20 09:41 Heparin Sodium,Porcine 5,000 Unit/Ml 1 Ml Vial SQ 5,000 unit Q8HR SEFERINO Administration Hydromorphone HCl 0.5 mg 10/17/20 11:54 10/18/20 04:11 Hydromorphone 0.5 Mg/0.5 Ml Syringe IVP 0.5 mg Q3HR PRN Administration Moderate to Severe Pain Piperacillin Sod/Tazobactam 100 mls @ 25 mls/hr 10/17/20 09:15 10/18/20 09:41 Sod 3.375 gm/ Sodium Chloride IVPB 25 mls/hr Q8HR SEFERINO Administration Insulin Aspart 0 unit 10/18/20 07:30 10/18/20 09:41 Insulin Aspart (Novolog) 100 Unit/Ml Vial SQ Not Given ACHS [facility] Protocol Morphine Sulfate 4 mg 10/16/20 20:20 10/17/20 04:07 Morphine Sulfate 4 Mg/Ml Syringe IV 4 mg Q4HR PRN Administration Severe Pain Naloxone HCl 0.2 mg 10/16/20 20:20 Naloxone 0.4 Mg/Ml 1 Ml Vial IV Q2M PRN Opioid Reversal Naloxone HCl 0.2 mg 10/17/20 11:54 Naloxone 0.4 Mg/Ml 1 Ml Vial IV Q2M PRN Opioid Reversal Ondansetron HCl 4 mg 10/16/20 20:20 Ondansetron 4 Mg/2 Ml Vial IVP Q8HR PRN Nausea And Vomiting Ondansetron HCl 4 mg 10/17/20 11:54 Ondansetron 4 Mg/2 Ml Vial IVP Q6HR PRN Nausea And Vomiting Pantoprazole Sodium 40 mg 10/17/20 09:15 10/18/20 09:41 Pantoprazole 40 Mg/10 Ml Vial IVP 40 mg DAILY SEFERINO Administration Intake and Output 10/17/20 10/18/20 10/18/20 22:59 06:59 14:59 Intake Total 2606.919 1512.374 150 Output Total 170 135 10 Balance 2436.919 1377.374 140 Intake: IV 2600 1200 150 Lactated Ringers 2600 1200 150 Intake, IV Titration 6.919 2.374 Amount Insulin Regular 100 unit 6.919 2.374 In Sodium Chloride 0.9% 100 ml @ Per Protocol IV .Q0M [facility] Rx#:[id number] Blood Product 0 310 Rc As-1 Unit 0 310 [id number] Output: Urine 170 135 10 Other: Voiding Method Indwelling Catheter Indwelling Catheter Weight 79.3 kg 10/18/20 03:59 10/18/20 03:59
--- NOTE | 2020-10-18 10:49 | CDI ---
Documentation Clarification Form Date: 10/18/2020 10:27:43 AM From: Lorena Gore RN CCDS Admit Date: 10/16/2020 08:03:00 PM Patient Name: Tony Joiner Visit Number: [id number] Discharge Date: ATTENTION: The Clinical Documentation Specialists (CDI) and [facility] Coding Staff appreciate your assistance in clarifying documentation. Please respond to the clarification below the line at the bottom and electronically sign. The CDI & [facility] Coding staff will review the response and follow-up if needed. Please note: Queries are made part of the Legal Health Record. If you have any questions, please contact the author of this message via ITS. Dr. Tom Darnell: The patient has Type 2 diabetes, as indicated in Internal Medicine Consult 10/17. History/Risk Factors: 70-year-old male presents to ED with worsening abdominal pain that started about a month ago. Medical History: DM. Admitted with abdominal pain secondary to ischemic small bowel. H&P 10/17. Clinical Indicators: H&P 10/17 Diabetes mellitus with elevated blood sugar. 10/16 Glucose 245. 10/17 POC Glucose 422; 371; 284; 189; 113. 10/18 POC Glucose 95. Treatment: 10/17 Novolog 15 SQ X1; 10/17 Novolog 5-unit SQ. STK-MED ONE. 10/17 Humulin R 7-unit Bolus IV from bag x1; Human regular 100 unit @ 0 mls/hr IV Q0M SEFERINO per protocol d/c 10/18. Please document any body system complications or specific manifestations related to the diabetes: Type 2 DM with Hyperglycemia Other condition please specify Unable to Determine (Last Revision: April 2017) Unable to determine MTDD
--- NOTE | 2020-10-18 11:00 | ECHOF ---
Referral Reason:Heart Murmur MEASUREMENTS -------- HEIGHT: 170.2 cm WEIGHT: 78.9 kg BP: RVIDd: 2.9 cm (< 3.3) IVSd: 1.4 cm (0.6 - 1.1) LVIDd: 4.3 cm (3.9 - 5.3) LVPWd: 1.4 cm (0.6 - 1.1) IVSs: 1.7 cm LVIDs: 4.3 cm LVPWs: 1.4 cm LAESV Index (A-L): 24.63 ml/m Ao Diam: 3.1 cm (2.0 - 3.7) AV Cusp: 0.7 cm (1.5 - 2.6) LA Diam: 4.4 cm (2.7 - 3.8) MV EXCURSION: 15.965 mm (> 18.000) MV EF SLOPE: 134 mm/s (70 - 150) EPSS: 1.9 cm MV E Antonio: 0.58 m/s MV DecT: 99 ms MV A Antonio: 1.15 m/s MV E/A Ratio: 0.51 AV maxP.53 mmHg AV meanP.32 mmHg AR PHT: 717 ms RAP: 5.00 mmHg RVSP: 40.98 mmHg FINDINGS -------- This was a technically difficult study with suboptimal views. The left ventricular size is normal. There is moderate concentric left ventricular hypertrophy. O verall left ventricular systolic function is severely impaired with, an EF between 20 - 25 %. Cecilia l LAP Grade 1 Diastolic Dysfunction.there is a global hypokinesia except the lateral wall seemed to b e moving fairly well. These findings are consistent with ischemic cardiomyopathy. The right ventricle is normal in size. The left atrial size is normal. Normal LA size by volume 22+/-6 ml/m2. The right atrial size is normal. Lumason used Aortic valve is trileaflet and is severely thickened. There is mild aortic regurgitation. There i s mild aortic stenosis present. Peak/mean gradient across the Aortic Valve is 26.53mmHg / 18.32mmHg . The mitral valve is normal. The mitral valve leaflets are mildly thickened. Moderate mitral regur gitation is present. The tricuspid valve appears structurally normal. Mild tricuspid regurgitation present. There is m ild pulmonary hypertension. The right ventricular systolic pressure, as measured by Doppler, is 40. 98mmHg. Trace/mild (physiologic) pulmonic regurgitation. The aortic root size is normal. IVC Not well visulized. There is no pericardial effusion. CONCLUSIONS -------- 1. The left ventricular size is normal. 2. There is moderate concentric left ventricular hypertrophy. 3. Overall left ventricular systolic function is severely impaired with, an EF between 20 - 25 %.Isch emic cardiac myopathy with global dysfunction except lateral wall shows fair wall motion 4. Normal LAP Grade 1 Diastolic Dysfunction. 5. Aortic valve is trileaflet and is severely thickened. 6. There is mild aortic regurgitation. 7. There is mild aortic stenosis present. 8. Peak/mean gradient across the Aortic Valve is 26.53mmHg / 18.32mmHg. 9. The mitral valve leaflets are mildly thickened. 10. Moderate mitral regurgitation is present. 11. Mild tricuspid regurgitation present. 12. There is mild pulmonary hypertension. 13. The right ventricular systolic pressure, as measured by Doppler, is 40.98mmHg. 14. Trace/mild (physiologic) pulmonic regurgitation. 15. There is no pericardial effusion. IRRIGATION TAX ASSESSOR COLLECTOR: Luz Maria Mccracken [facility]
[2020-10-18 11:48] LABS: Glucose,Whole Blood 100 mg/dL (75-99)
--- NOTE | 2020-10-18 13:11 | P.PN ---
Subjective Progress Note Date: 10/18/20 CHIEF COMPLAINT: Ischemic bowel HISTORY OF PRESENT ILLNESS: Patient is status post exploratory laparotomy, lysis of adhesions and small bowel resection for ischemic bowel and adhesions. Postop day #1. Patient currently in the ICU. He has had low urine output and will be receiving another liter of lactated Ringer's. Patient did get a unit of blood yesterday hemoglobin has come up from 8.5-10. His lactic has normalized at 1.2 white count is 16.6. He is afebrile. Patient seen by cardiology they have ordered echo shows an EF of 20-25% ischemic cardiomyopathy with global dysfunction. Patient reports that his abdominal pain is controlled. Denies any nausea or vomiting. PHYSICAL EXAM: VITAL SIGNS: Reviewed. GENERAL: Well-developed in no acute distress. HEENT: No sclera icterus. Extraocular movements grossly intact. Moist buccal mucosa. Head is atraumatic, normocephalic. ABDOMEN: Soft. Nondistended. Incision dressing clean dry and intact NEUROLOGIC: Alert and oriented. Cranial nerves II through XII grossly intact. ASSESSMENT: 1. Ischemic bowel with adhesions status post exploratory laparotomy, lysis of adhesions and small bowel resection 2. Diabetes mellitus type 2 PLAN: -Continue ICU management -Continue supportive care -We'll give 1 L of fluid bolus for low urine output -Continue antibiotics -Continue IV fluids -Continue pain medication as needed -Continue Protonix for GI prophylaxis and subcu heparin for DVT prophylaxis Physician Log Cutter note has been reviewed by physician. Signing provider agrees with the documented findings, assessment, and plan of care. Objective - Vital Signs Vital signs: Vital Signs Temp 98.4 F 10/18/20 00:00 Pulse 94 10/18/20 11:00 Resp 18 10/18/20 11:00 BP 107/60 10/18/20 11:00 Pulse Ox 100 10/18/20 11:00 Intake & Output 10/17/20 10/18/20 10/18/20 18:59 06:59 18:59 Intake Total 3200 2119.293 750 Output Total 275 225 70 Balance 2925 1894.293 680 Weight 70.307 kg 79.3 kg Intake: IV 3200 1800 750 Lactated Ringers 2000 1800 750 Intake, IV Titration 9.293 Amount Insulin Regular 100 unit 9.293 In Sodium Chloride 0.9% 100 ml @ Per Protocol IV .Q0M [facility] Rx#:[id number] Blood Product 310 Rc As-1 Unit 310 [id number] Output: Urine 250 225 70 Estimated Blood Loss 25 Other: Voiding Method Indwelling Catheter Indwelling Catheter Indwelling Catheter - Labs CBC & Chem 7: 10/18/20 03:59 10/18/20 03:59 Labs: Abnormal Lab Results - Last 24 Hours (Table) 10/17/20 10/17/20 10/17/20 Range/Units 10:39 13:24 15:40 WBC 16.1 H (3.8-10.6) k/uL RBC 3.08 L (4.30-5.90) m/uL Hgb 8.5 L D (13.0-17.5) gm/dL Hct 26.7 L (39.0-53.0) % RDW 19.5 H (11.5-15.5) % Neutrophils # 14.0 H (1.3-7.7) k/uL PT (9.0-12.0) sec INR (<1.2) BUN (9-20) mg/dL Glucose (74-99) mg/dL POC Glucose (mg/dL) 284 H (75-99) mg/dL Plasma Lactic Acid [place] (0.7-2.0) mmol/L Calcium (8.4-10.2) mg/dL AST (17-59) U/L ALT (4-49) U/L Total Protein (6.3-8.2) g/dL Albumin (3.5-5.0) g/dL Crossmatch See Detail 10/17/20 10/17/20 10/17/20 Range/Units 15:40 15:40 15:40 WBC (3.8-10.6) k/uL RBC (4.30-5.90) m/uL Hgb (13.0-17.5) gm/dL Hct (39.0-53.0) % RDW (11.5-15.5) % Neutrophils # (1.3-7.7) k/uL PT 12.2 H (9.0-12.0) sec INR 1.2 H (<1.2) BUN 35 H (9-20) mg/dL Glucose 182 H (74-99) mg/dL POC Glucose (mg/dL) (75-99) mg/dL Plasma Lactic Acid [place] 4.0 H* (0.7-2.0) mmol/L Calcium (8.4-10.2) mg/dL AST 457 H (17-59) U/L ALT 295 H (4-49) U/L Total Protein 4.5 L (6.3-8.2) g/dL Albumin 2.3 L (3.5-5.0) g/dL Crossmatch 10/17/20 10/17/20 10/17/20 Range/Units 19:12 20:27 21:22 WBC (3.8-10.6) k/uL RBC (4.30-5.90) m/uL Hgb (13.0-17.5) gm/dL Hct (39.0-53.0) % RDW (11.5-15.5) % Neutrophils # (1.3-7.7) k/uL PT (9.0-12.0) sec INR (<1.2) BUN (9-20) mg/dL Glucose (74-99) mg/dL POC Glucose (mg/dL) 189 H 171 H 172 H (75-99) mg/dL Plasma Lactic Acid [place] (0.7-2.0) mmol/L Calcium (8.4-10.2) mg/dL AST (17-59) U/L ALT (4-49) U/L Total Protein (6.3-8.2) g/dL Albumin (3.5-5.0) g/dL Crossmatch 10/17/20 10/17/20 10/17/20 Range/Units 22:32 23:21 23:55 WBC (3.8-10.6) k/uL RBC (4.30-5.90) m/uL Hgb (13.0-17.5) gm/dL Hct (39.0-53.0) % RDW (11.5-15.5) % Neutrophils # (1.3-7.7) k/uL PT (9.0-12.0) sec INR (<1.2) BUN (9-20) mg/dL Glucose (74-99) mg/dL POC Glucose (mg/dL) 134 H 128 H 113 H (75-99) mg/dL Plasma Lactic Acid [place] (0.7-2.0) mmol/L Calcium (8.4-10.2) mg/dL AST (17-59) U/L ALT (4-49) U/L Total Protein (6.3-8.2) g/dL Albumin (3.5-5.0) g/dL Crossmatch 10/18/20 10/18/20 10/18/20 Range/Units 00:48 03:59 03:59 WBC 17.2 H 16.6 H (3.8-10.6) k/uL RBC 3.48 L 3.41 L (4.30-5.90) m/uL Hgb 9.7 L 10.0 L (13.0-17.5) gm/dL Hct 30.3 L 29.6 L (39.0-53.0) % RDW 18.6 H 18.7 H (11.5-15.5) % Neutrophils # 14.6 H 14.4 H (1.3-7.7) k/uL PT (9.0-12.0) sec INR (<1.2) BUN 33 H (9-20) mg/dL Glucose 100 H (74-99) mg/dL POC Glucose (mg/dL) (75-99) mg/dL Plasma Lactic Acid [place] (0.7-2.0) mmol/L Calcium 8.3 L (8.4-10.2) mg/dL AST 307 H (17-59) U/L ALT 306 H (4-49) U/L Total Protein 4.4 L (6.3-8.2) g/dL Albumin 2.3 L (3.5-5.0) g/dL Crossmatch 10/18/20 10/18/20 10/18/20 Range/Units 03:59 05:26 06:26 WBC (3.8-10.6) k/uL RBC (4.30-5.90) m/uL Hgb (13.0-17.5) gm/dL Hct (39.0-53.0) % RDW (11.5-15.5) % Neutrophils # (1.3-7.7) k/uL PT 12.3 H (9.0-12.0) sec INR 1.2 H (<1.2) BUN (9-20) mg/dL Glucose (74-99) mg/dL POC Glucose (mg/dL) 120 H 100 H (75-99) mg/dL Plasma Lactic Acid [place] (0.7-2.0) mmol/L Calcium (8.4-10.2) mg/dL AST (17-59) U/L ALT (4-49) U/L Total Protein (6.3-8.2) g/dL Albumin (3.5-5.0) g/dL Crossmatch 10/18/20 Range/Units 11:48 WBC (3.8-10.6) k/uL RBC (4.30-5.90) m/uL Hgb (13.0-17.5) gm/dL Hct (39.0-53.0) % RDW (11.5-15.5) % Neutrophils # (1.3-7.7) k/uL PT (9.0-12.0) sec INR (<1.2) BUN (9-20) mg/dL Glucose (74-99) mg/dL POC Glucose (mg/dL) 100 H (75-99) mg/dL Plasma Lactic Acid [place] (0.7-2.0) mmol/L Calcium (8.4-10.2) mg/dL AST (17-59) U/L ALT (4-49) U/L Total Protein (6.3-8.2) g/dL Albumin (3.5-5.0) g/dL Crossmatch
[2020-10-18 16:35] LABS: Hemoglobin A1C 7.7 % (4.0-6.0)
[2020-10-18 16:52] LABS: Glucose,Whole Blood 114 mg/dL (75-99)
--- NOTE | 2020-10-18 16:52 | P.PN ---
Subjective Progress Note Date: 10/18/20 Principal diagnosis: Ischemic bowel s/p resection Mr. Joiner is a 70-year-old male with a past medical history of coronary artery disease, dementia, diverticulitis, DVT, hypertension, hyperlipidemia, thyroid disorder, prostate cancer coming into the hospital yesterday with a chief complaint of abdominal pain. Patient was having pain mostly in the center of his abdomen, which was sharp in nature and 10 out of 10 in intensity. He also had one episode of vomiting along with diarrhea and stools that are dark in color. Patient is on aspirin and Plavix at home. In the ER patient had a CAT scan of the abdomen and pelvis showing diffuse pneumatosis intestinalis involving mid to distal small bowel loops with portal venous gas consistent with bowel ischemia. There is associated moderate grade years. So the patient was taken to the ER and had exploratory laparotomy done earlier this morning. Intraoperatively patient required pressor support to maintain his blood pressur e. Postop patient was extubated and transferred to the ICU for further care. Postop patient had decreased urine output, so currently receiving his second liter of bolus in the ICU. On 10/18/2020 - patient was seen and examined in the ICU at bedside. Patient's at the bedside. As per discussion with the , patient has been confused thinks that there are people in the hallways collecting funds for his disability. She mentions that patient has history of dementia. Patient complains of abdominal soreness. He denies having any chest pain or palpitations. He has a Bowman's catheter in place with good urinary output. On reviewing his vitals T-max of 98.6, heart rate in 90s to 100s, blood pressure 110s/50s to 60s, saturating at 94% on room air. He is currently getting IV fluids, insulin drip and Zosyn. On reviewing the labs white count of 16.6, hemoglobin 10, platelets 258. INR of 1.2. Sodium 138, potassium 4.1, chloride 1 as is, bicarbonate, BUN 33, creatinine 0.95. Hemoglobin A1c 7.7. AST 307, ALT 306. Active Medications Heparin Sodium (Porcine) (Heparin Sodium,Porcine 5,000 Unit/Ml 1 Ml Vial) 5,000 unit SQ Q8HR [facility] Last Admin: 10/18/20 09:41 Dose: 5,000 unit Documented by: Hydromorphone HCl (Hydromorphone 0.5 Mg/0.5 Ml Syringe) 0.5 mg IVP Q3HR PRN PRN Reason: Moderate to Severe Pain Last Admin: 10/18/20 13:40 Dose: 0.5 mg Documented by: Piperacillin Sod/Tazobactam (Sod 3.375 gm/ Sodium Chloride) 100 mls @ 25 mls/hr IVPB Q8HR [facility] Last Admin: 10/18/20 09:41 Dose: 25 mls/hr Documented by: Insulin Aspart (Insulin Aspart (Novolog) 100 Unit/Ml Vial) 0 unit SQ ACHS [facility]; Protocol Last Admin: 10/18/20 13:40 Dose: Not Given Documented by: Morphine Sulfate (Morphine Sulfate 4 Mg/Ml Syringe) 4 mg IV Q4HR PRN PRN Reason: Severe Pain Last Admin: 10/17/20 04:07 Dose: 4 mg Documented by: Naloxone HCl (Naloxone 0.4 Mg/Ml 1 Ml Vial) 0.2 mg IV Q2M PRN PRN Reason: Opioid Reversal Naloxone HCl (Naloxone 0.4 Mg/Ml 1 Ml Vial) 0.2 mg IV Q2M PRN PRN Reason: Opioid Reversal Ondansetron HCl (Ondansetron 4 Mg/2 Ml Vial) 4 mg IVP Q8HR PRN PRN Reason: Nausea And Vomiting Ondansetron HCl (Ondansetron 4 Mg/2 Ml Vial) 4 mg IVP Q6HR PRN PRN Reason: Nausea And Vomiting Pantoprazole Sodium (Pantoprazole 40 Mg/10 Ml Vial) 40 mg IVP DAILY [facility] Last Admin: 10/18/20 09:41 Dose: 40 mg Documented by: Objective - Vital Signs Vital signs: Vital Signs Temp 98.4 F 10/18/20 00:00 Pulse 94 10/18/20 11:00 Resp 18 10/18/20 11:00 BP 107/60 10/18/20 11:00 Pulse Ox 100 10/18/20 11:00 Intake & Output 10/17/20 10/18/20 10/18/20 18:59 06:59 18:59 Intake Total 3200 2119.293 750 Output Total 275 225 70 Balance 2925 1894.293 680 Weight 70.307 kg 79.3 kg Intake: IV 3200 1800 750 Lactated Ringers 2000 1800 750 Intake, IV Titration 9.293 Amount Insulin Regular 100 unit 9.293 In Sodium Chloride 0.9% 100 ml @ Per Protocol IV .Q0M [facility] Rx#:[id number] Blood Product 310 Rc As-1 Unit 310 [id number] Output: Urine 250 225 70 Estimated Blood Loss 25 Other: Voiding Method Indwelling Catheter Indwelling Catheter Indwelling Catheter - Exam PHYSICAL EXAMINATION: GENERAL: The patient is alert and oriented x3, not in any acute distress. HEENT: Pupils are round and equally reacting to light. EOMI. No scleral icterus. mild conjunctival pallor. CARDIOVASCULAR: S1 and S2 present. PULMONARY: Chest is clear to auscultation, no wheezing or crackles. ABDOMEN: Surgical scar in place covered with dressing. Dressing appears clean with no bleeding. Hypoactive bowel sounds. MUSCULOSKELETAL: No joint swelling or deformity. EXTREMITIES: No cyanosis, clubbing, or pedal edema. NEUROLOGICAL: Gross neurological examination did not reveal any focal deficits. SKIN: No rashes. - Labs CBC & Chem 7: 10/18/20 03:59 10/18/20 03:59 Labs: Abnormal Lab Results - Last 24 Hours (Table) 10/17/20 10/17/20 10/17/20 Range/Units 10:39 15:40 15:40 WBC 16.1 H (3.8-10.6) k/uL RBC 3.08 L (4.30-5.90) m/uL Hgb 8.5 L D (13.0-17.5) gm/dL Hct 26.7 L (39.0-53.0) % RDW 19.5 H (11.5-15.5) % Neutrophils # 14.0 H (1.3-7.7) k/uL PT 12.2 H (9.0-12.0) sec INR 1.2 H (<1.2) BUN (9-20) mg/dL Glucose (74-99) mg/dL POC Glucose (mg/dL) (75-99) mg/dL Plasma Lactic Acid [place] (0.7-2.0) mmol/L Calcium (8.4-10.2) mg/dL AST (17-59) U/L ALT (4-49) U/L Total Protein (6.3-8.2) g/dL Albumin (3.5-5.0) g/dL Crossmatch See Detail 10/17/20 10/17/20 10/17/20 Range/Units 15:40 15:40 19:12 WBC (3.8-10.6) k/uL RBC (4.30-5.90) m/uL Hgb (13.0-17.5) gm/dL Hct (39.0-53.0) % RDW (11.5-15.5) % Neutrophils # (1.3-7.7) k/uL PT (9.0-12.0) sec INR (<1.2) BUN 35 H (9-20) mg/dL Glucose 182 H (74-99) mg/dL POC Glucose (mg/dL) 189 H (75-99) mg/dL Plasma Lactic Acid [place] 4.0 H* (0.7-2.0) mmol/L Calcium (8.4-10.2) mg/dL AST 457 H (17-59) U/L ALT 295 H (4-49) U/L Total Protein 4.5 L (6.3-8.2) g/dL Albumin 2.3 L (3.5-5.0) g/dL Crossmatch 10/17/20 10/17/20 10/17/20 Range/Units 20:27 21:22 22:32 WBC (3.8-10.6) k/uL RBC (4.30-5.90) m/uL Hgb (13.0-17.5) gm/dL Hct (39.0-53.0) % RDW (11.5-15.5) % Neutrophils # (1.3-7.7) k/uL PT (9.0-12.0) sec INR (<1.2) BUN (9-20) mg/dL Glucose (74-99) mg/dL POC Glucose (mg/dL) 171 H 172 H 134 H (75-99) mg/dL Plasma Lactic Acid [place] (0.7-2.0) mmol/L Calcium (8.4-10.2) mg/dL AST (17-59) U/L ALT (4-49) U/L Total Protein (6.3-8.2) g/dL Albumin (3.5-5.0) g/dL Crossmatch 10/17/20 10/17/20 10/18/20 Range/Units 23:21 23:55 00:48 WBC 17.2 H (3.8-10.6) k/uL RBC 3.48 L (4.30-5.90) m/uL Hgb 9.7 L (13.0-17.5) gm/dL Hct 30.3 L (39.0-53.0) % RDW 18.6 H (11.5-15.5) % Neutrophils # 14.6 H (1.3-7.7) k/uL PT (9.0-12.0) sec INR (<1.2) BUN (9-20) mg/dL Glucose (74-99) mg/dL POC Glucose (mg/dL) 128 H 113 H (75-99) mg/dL Plasma Lactic Acid [place] (0.7-2.0) mmol/L Calcium (8.4-10.2) mg/dL AST (17-59) U/L ALT (4-49) U/L Total Protein (6.3-8.2) g/dL Albumin (3.5-5.0) g/dL Crossmatch 10/18/20 10/18/20 10/18/20 Range/Units 03:59 03:59 03:59 WBC 16.6 H (3.8-10.6) k/uL RBC 3.41 L (4.30-5.90) m/uL Hgb 10.0 L (13.0-17.5) gm/dL Hct 29.6 L (39.0-53.0) % RDW 18.7 H (11.5-15.5) % Neutrophils # 14.4 H (1.3-7.7) k/uL PT 12.3 H (9.0-12.0) sec INR 1.2 H (<1.2) BUN 33 H (9-20) mg/dL Glucose 100 H (74-99) mg/dL POC Glucose (mg/dL) (75-99) mg/dL Plasma Lactic Acid [place] (0.7-2.0) mmol/L Calcium 8.3 L (8.4-10.2) mg/dL AST 307 H (17-59) U/L ALT 306 H (4-49) U/L Total Protein 4.4 L (6.3-8.2) g/dL Albumin 2.3 L (3.5-5.0) g/dL Crossmatch 10/18/20 10/18/20 10/18/20 Range/Units 05:26 06:26 11:48 WBC (3.8-10.6) k/uL RBC (4.30-5.90) m/uL Hgb (13.0-17.5) gm/dL Hct (39.0-53.0) % RDW (11.5-15.5) % Neutrophils # (1.3-7.7) k/uL PT (9.0-12.0) sec INR (<1.2) BUN (9-20) mg/dL Glucose (74-99) mg/dL POC Glucose (mg/dL) 120 H 100 H 100 H (75-99) mg/dL Plasma Lactic Acid [place] (0.7-2.0) mmol/L Calcium (8.4-10.2) mg/dL AST (17-59) U/L ALT (4-49) U/L Total Protein (6.3-8.2) g/dL Albumin (3.5-5.0) g/dL Crossmatch Assessment and Plan Assessment: ASSESSMENT Acute small bowel ischemia with pneumatosis intestinalis Status post exploration laparotomy with bowel resection and lysis of adhesions- postoperative day#1 Hypotension - postop DD: sepsis versus hypovolemia versus blood loss Transaminitis - LFTs trending down Lactic acidosis - trending down Leukocytosis - could be secondary to postop Anemia- could be due to blood loss Coronary artery disease status post CABG Prostate cancer with radiation therapy Type 2 diabetes mellitus Peripheral vascular disease with previous stenting of lower extremities Hypertension Hyperlipidemia Hypothyroidism Protein calorie malnutrition moderate\ PLAN: Patient showed significant improvement in his urinary output with IV fluid resuscitation. Surgery on board for possible reexploration, spoke with Dr. Chin, has no plans for today. Continue with antibiotics in the form of Zosyn. He is on Dilaudid for pain control. Protonix for GI prophylaxis and heparin for DVT prophylaxis. He is maintained on insulin drip for better blood sugar control. Further recommendations to follow depending on the progress of the patient
[2020-10-18 21:04] LABS: Glucose,Whole Blood 137 mg/dL (75-99)
[2020-10-19] MEDS: HEPARIN SODIUM,PORCINE 5,000 UNIT/ML 1 ML VIAL SQ SCH ×4 (01:10→22:49)
[2020-10-19] MEDS: PIPERACILLIN-TAZOBACTAM 3.375 GM in SODIUM CHLORIDE 0.9% 100 ML IVPB SCH ×4 (01:10→22:49)
[2020-10-19 05:36] LABS: Calcium 8.5 mg/dL (8.4-10.2); Potassium 5.2 mmol/L (3.5-5.1)
[2020-10-19 05:52] LABS: Anisocytosis Slight; Basophils % (A) 0 %; Eosinophils % (A) 0 %; HCT 33.4 % (39.0-53.0); Hypochromasia Slight; Lymphocytes # (A) 0.9 k/uL (1.0-4.8); Lymphocytes % (A) 5 %; MCV 87.9 fL (80.0-100.0); Mean Platelet Volume 7.9; Monocytes # (A) 1.1 k/uL (0-1.0); Monocytes % (A) 6 %; Neutrophils % (A) 87 %; Platelet Count 263 k/uL (150-450); WBC 17.1 k/uL (3.8-10.6)
[2020-10-19] MEDS: HYDROmorphone 0.5 MG/0.5 ML SYRINGE IVP PRN ×5 (06:11→20:03)
--- NOTE | 2020-10-19 06:46 | P.PN ---
Subjective Progress Note Date: 10/19/20 70-year-old male patient who arrived from the operating room where the patient had a extensive laparotomy, lysis of adhesions and small bowel resection for ischemic bowel. The patient was found to have ischemic bowel intraoperatively. Postop, the patient was extubated and patient was brought into the ICU for further care. At this point in time the patient is on oxygen at 3 L and his pulse ox around 93%. His BP is 101/56. He has nausea upper extremity peripheral IV. No central lines inserted. He has a Bowman catheter in place. He is currently running IV fluids at the rate of 150 mL an hour of normal saline. He will be given a 2 L bolus immediately here in the ICU knowing that his urine output has been in the order of 10-20 mL an hour. The patient came into the emergency department on October 16 and the patient was complaining of abdominal pain and he also had some lactic acidosis. Note that he has vasculopathy angios diabetes mellitus hypertension and underlying dementia and he is also known to have CAD and prostate cancer for which she has associated radiation therapy. The patient had a CAT scan of the abdomen and pelvis that was done in the emergency department yesterday and the CAT scan showed no evidence of any free air. There was diffuse pneumatosis intestinalis involving the mid and the distal portion of the small bowel loops with 40 venous gas consistent with bowel ischemia. There was also associated mild to moderate grade of an ileus. For that reason, the patient was taken to the operating room today. Note that his lactic acid level was 5.4. Currently is awake. Is unresponsive. Moving all 4 extremities. The patient already received a total of 4 L of fluid boluses. He is currently on IV Zosyn. Today's evaluation of 10/18/2020, the patient is postop day #1 following exploratory laparotomy and small bowel resection for underlying bowel ischemia. The patient was extubated and recovered. He remains extubated for now. Is on oxygen at 3 L and his pulse ox is around 97%. He is not using his incentive spirometer aggressively. Hemodynamically, he is stable on no pressors. IV fluids are running in the form of normal saline at rate of 150 mL an hour. The fluid balance over the past 24 hours has been +4.8 L of the patient received several fluid boluses. His urine output was lower running between 10-20 mL an hour and the last bolus of fluid was given to him at around 8 PM yesterday. The patient's blood work from today shows a white cell count of 16 with a hemoglobin of 10. Note that the patient received also units of packed RBC yesterday. His BUN is 33 with a creatinine of 0.9. LFTs are improving including an AST of 307, ALT of 306 and the rest of the electrodes are all within normal limits. Albumin is down to 2.3. Surgical wound site over the anterior abdominal wall is dry clean and intact. The patient has no drains. Bowel sounds are quite hypoactive. Chest x-ray showing air under the right hemidiaphragm, likely posts urgical. The patient has signs of previous thoracotomy. Atelectatic changes can be seen also in the lung bases bilaterally. There is also right pleural thickening. Note that the patient's lactic is down to 1.2 acute on insulin drip last night and the patient was placed on insulin drip yesterday upon my request and the blood sugars under tighter control and current insulin drip is off and the patient is on a sliding scale coverage. 10/19/2020 the patient is being seen for a follow-up. The patient is postop day #2 and the patient underwent laparotomy and small bowel resection for bowel is chemia. As mentioned, the patient was extubated without any major difficulties. This morning he is on room air oxygen. He is using incentive spirometer and he remains hemodynamically stable. No reported abdominal pain for now. The patient has not passed any flatus yet. No major abdominal distention. No nausea. No vomiting. He remains on IV Zosyn for now. White cell count is at 17 which is essentially compatible to yesterday. The patient has no symptoms to metabolic acidosis. Serum bicarb is 25. His creatinine is at 1.1. Surgical wound site is dry clean and intact. No other significant events otherwise for now. He is receiving Dilaudid for pain control and he is also on heparin subcu for DVT prophylaxis. Blood sugars are also under good control and the patient is receiving sliding scale coverage insulin drip has been discontinued. No other significant events overnight. He is awake and alert and is following commands. Objective - Vital Signs Vital signs: Vital Signs Temp 98.2 F 10/19/20 04:00 Pulse 90 10/19/20 06:00 Resp 10 L 10/19/20 06:00 BP 117/59 10/19/20 06:00 Pulse Ox 90 L 10/19/20 06:00 Intake & Output 10/18/20 10/18/20 10/19/20 06:59 18:59 06:59 Intake Total 2119.293 1500 1800 Output Total 225 160 320 Balance 5747.713 7192 1480 Weight 79.3 kg 80 kg Intake: IV 1800 1500 1800 Lactated Ringers 1800 1500 1800 Intake, IV Titration 9.293 Amount Insulin Regular 100 unit 9.293 In Sodium Chloride 0.9% 100 ml @ Per Protocol IV .Q0M [facility] Rx#:[id number] Blood Product 310 Rc As-1 Unit 310 [id number] Output: Urine 225 160 320 Other: Voiding Method Indwelling Catheter Indwelling Catheter Indwelling Catheter - Exam Gen. appearance the patient is calm and comfortable likely distress Head exam was generally normal. There was no scleral icterus or corneal arcus. Mucous membranes were moist. Neck was supple and without jugular venous distension, thyromegaly, or carotid bruits. Carotids were easily palpable bilaterally. There was no adenopathy. Lungs sounds are diminished yet the BS diminished symmetrical bilaterally. Cardiac exam revealed the PMI to be normally situated and sized. The rhythm was regular and no extrasystoles were noted during several minutes of auscultation. The first and second heart sounds were normal and physiologic splitting of the second heart sound was noted. There were grade 3/6 left precordial murmurs, rubs, clicks, or gallops. Abdomen is soft. Surgical wound site is dry clean and intact. No direct tenderness. No rebound tenderness. No guarding. The patient's has a clean incision sites. No organomegaly. No bowel sounds. Examination of the extremities revealed easily palpable radial, femoral and pedal pulses. There was no cyanosis, clubbing or edema. Examination of the skin revealed no evidence of significant rashes, suspicious appearing nevi or other concerning lesions. Neurologically, the patient is awake and alert and the patient does not have any focal neurological deficit. Cranial nerves are essentially intact. - Labs CBC & Chem 7: 10/19/20 04:18 10/19/20 04:18 Labs: Abnormal Lab Results - Last 24 Hours (Table) 10/18/20 10/18/20 10/18/20 Range/Units 03:59 11:48 16:50 WBC (3.8-10.6) k/uL RBC (4.30-5.90) m/uL Hgb (13.0-17.5) gm/dL Hct (39.0-53.0) % RDW (11.5-15.5) % Neutrophils # (1.3-7.7) k/uL Lymphocytes # (1.0-4.8) k/uL Monocytes # (0-1.0) k/uL Potassium (3.5-5.1) mmol/L BUN (9-20) mg/dL Glucose (74-99) mg/dL POC Glucose (mg/dL) 100 H 114 H (75-99) mg/dL Hemoglobin A1c 7.7 H (4.0-6.0) % 10/18/20 10/19/20 10/19/20 Range/Units 21:03 04:18 04:18 WBC 17.1 H (3.8-10.6) k/uL RBC 3.80 L (4.30-5.90) m/uL Hgb 11.0 L (13.0-17.5) gm/dL Hct 33.4 L (39.0-53.0) % RDW 19.0 H (11.5-15.5) % Neutrophils # 15.0 H (1.3-7.7) k/uL Lymphocytes # 0.9 L (1.0-4.8) k/uL Monocytes # 1.1 H (0-1.0) k/uL Potassium 5.2 H (3.5-5.1) mmol/L BUN 45 H (9-20) mg/dL Glucose 124 H (74-99) mg/dL POC Glucose (mg/dL) 137 H (75-99) mg/dL Hemoglobin A1c (4.0-6.0) % Assessment and Plan Plan: 1 Acute ischemic small bowel with pneumatosis intestinalis, the patient is post that the laparotomy and small bowel resection and the patient is postop day #2 The patient is doing well. The chest x-ray from today showing some. Chest x- ray from today shows gas under the diaphragms bilaterally and this is consistent with intraperitoneal air probably postsurgical. The patient's abdomen is currently soft. No abdominal distention. No worsening of leukocytosis. He remains hemodynamically stable. He is not passing any flatus yet. No NG tube. Hemodynamically stable. 2 hypotension secondary to above, consider underlying sepsis of an abdominal source secondary to bowel ischemia, recovered 3 acute lactic acidosis secondary to above, Lactic acid level is down to 1.2 4 acute leukocytosis , White count is 17 5 coronary artery disease with previous bypass surgery 6 diabetes mellitus , BS improved blood sugar control and the patient is currently off insulin drip 7 peripheral vascular disease with previous intervention and stenting of the lower extremities 8 hypertension 9 hyperlipidemia 10 hypothyroidism 11 prostate cancer with previous radiation therapy Plan Continue NS at the rate of 150 mL an hour Monitor lactic acid level and the levels essentially normalized Currently there is no concern of ongoing bowel ischemia Continue IV Zosyn Still coverage with improved blood sugar control Dilaudid for pain control Heparin subcu for DVT prophylaxis 5000 every 8 IV Protonix Incentive spirometer Set him up on a chair We'll continue to follow her as ICU. may transfer to a surgical floor at a later stage
[2020-10-19 06:50] LABS: Glucose,Whole Blood 142 mg/dL (75-99)
[2020-10-19] MEDS: PANTOPRAZOLE 40 MG/10 ML VIAL IVP SCH (08:07)
--- NOTE | 2020-10-19 08:53 | XR ---
EXAMINATION TYPE: XR chest 1V DATE OF EXAM: 10/19/2020 COMPARISON: 10/18/2020 HISTORY: Shortness of breath TECHNIQUE: Single frontal view of the chest is obtained. FINDINGS: There remains a large amount of free intraperitoneal air. Basilar infiltrate and tiny effu nai. Postoperative changes seen. Heart size stable. No pneumothorax. Arthropathy shoulders. IMPRESSION: 1. Bilateral infiltrate and small effusion stable. 2. Large amount of free intra-abdominal air persists.
--- NOTE | 2020-10-19 11:56 | P.PN ---
Subjective Progress Note Date: 10/19/20 HISTORY OF PRESENT ILLNESS: 10/18/2020 This is a 70-year-old male with a past medical history significant for coronary artery disease with previous stenting and CABG 5 in 1998, peripheral vascular disease with previous stenting of his lower extremities, diabetes mellitus, DVT, hypertension, hyperlipidemia, prostate cancer, and former nicotine dependence. Patient does not follow with a rib puller. Patient states he recently moved to [place] from [place] and used to follow with a rib puller in [place]. We have been asked to see the patient in consultation for cardiac history. Patient is status post exploratory laparotomy, lysis of adhesions, and small bowel resection secondary to ischemic bowel on 10/17/[address] Darnell. Patient examined at the bedside in the intensive care unit. Patient denies chest pain or pressure. Denies shortness of breath. EKG reveals sinus mechanism with T-wave inversions laterally Chest xray bilateral areas of infiltrate and pleural effusions. Stable from previous exam. Laboratory data: WBC 16.6. Hemoglobin 10.0. Platelet count 258. Sodium 138. Potassium 4.7. BUN 33. Creatinine 0.95. AST 307. ALT 306. Lactic acid 4.2. Repeat 1.2. Current home cardiac medications include study at 10 mg daily, Plavix 75 mg daily, atorvastatin 80 mg daily, lisinopril 20 mg twice a day, and aspirin 81 mg daily 10/19/2020 Patient examined this morning in the intensive care unit. Patient denies chest pain or pressure. He denies shortness of breath. He denies passing flatus. He remains nothing by mouth. Echocardiogram completed reveals ejection fraction 20-25% with global dysfunction except lateral wall shows fair motion, mild aortic regurgitation, mild aortic stenosis, moderate mitral regurgitation, mild tricuspid regurgitation, and mild pulmonary hypertension. PHYSICAL EXAM: VITAL SIGNS: Reviewed. GENERAL: Well-developed in no acute distress. HEENT: Head is normocephalic. Pupils are equal, round. Sclerae anicteric. Mucous membranes of the mouth are moist. Neck supple. No JVD or thyromegaly LUNGS: Respirations even and unlabored. Lungs diminished bilaterally. HEART: Regular rate and rhythm. S1 and S2 heard. Systolic murmur noted. EXTREMITIES: Normal range of motion. No clubbing or cyanosis. Peripheral pulses intact. No lower extremity edema ASSESSMENT: Acute ischemic bowel with pneumatosis intestinalis, status post exploratory laparotomy, lysis of adhesions, and small bowel resection Hypotension, improved with IV hydration Leukocytosis Lactic acidosis, resolved Elevated LFTs Coronary artery disease with previous stenting and CABG 1998 Ischemic cardiomyopathy, ejection fraction 20-25% Peripheral vascular disease with previous stenting of the lower extremities Diabetes mellitus Hypertension Hyperlipidemia History of prostate cancer Former nicotine dependence PLAN: Resume home cardiac medications when cleared with general surgery (aspirin, Plavix, Lipitor, Zetia, and lisinopril) Continue telemetry monitoring Patient is currently stable from a cardiac perspective Further recommendations pending patient course Nurse practitioner note has been reviewed by physician. Signing provider agrees with the documented findings, assessment, and plan of care. Objective - Vital Signs Vital signs: Vital Signs Temp 98.1 F 10/19/20 08:00 Pulse 91 10/19/20 08:00 Resp 16 10/19/20 08:00 BP 112/63 10/19/20 08:00 Pulse Ox 98 10/19/20 08:00 Intake & Output 10/18/20 10/19/20 10/19/20 18:59 06:59 18:59 Intake Total 1500 1800 150 Output Total 160 320 15 Balance 1340 1480 135 Weight 80 kg Intake: IV 1500 1800 150 Lactated Ringers 1500 1800 150 Output: Urine 160 320 15 Other: Voiding Method Indwelling Catheter Indwelling Catheter Indwelling Catheter - Labs CBC & Chem 7: 10/19/20 04:18 10/19/20 04:18 Labs: Abnormal Lab Results - Last 24 Hours (Table) 10/18/20 10/18/20 10/18/20 Range/Units 03:59 16:50 21:03 WBC (3.8-10.6) k/uL RBC (4.30-5.90) m/uL Hgb (13.0-17.5) gm/dL Hct (39.0-53.0) % RDW (11.5-15.5) % Neutrophils # (1.3-7.7) k/uL Lymphocytes # (1.0-4.8) k/uL Monocytes # (0-1.0) k/uL Potassium (3.5-5.1) mmol/L BUN (9-20) mg/dL Glucose (74-99) mg/dL POC Glucose (mg/dL) 114 H 137 H (75-99) mg/dL Hemoglobin A1c 7.7 H (4.0-6.0) % 10/19/20 10/19/20 10/19/20 Range/Units 04:18 04:18 06:48 WBC 17.1 H (3.8-10.6) k/uL RBC 3.80 L (4.30-5.90) m/uL Hgb 11.0 L (13.0-17.5) gm/dL Hct 33.4 L (39.0-53.0) % RDW 19.0 H (11.5-15.5) % Neutrophils # 15.0 H (1.3-7.7) k/uL Lymphocytes # 0.9 L (1.0-4.8) k/uL Monocytes # 1.1 H (0-1.0) k/uL Potassium 5.2 H (3.5-5.1) mmol/L BUN 45 H (9-20) mg/dL Glucose 124 H (74-99) mg/dL POC Glucose (mg/dL) 142 H (75-99) mg/dL Hemoglobin A1c (4.0-6.0) %
[2020-10-19 11:57] LABS: Glucose,Whole Blood 116 mg/dL (75-99)
[2020-10-19] MEDS: INSULIN ASPART (NovoLOG) 100 UNIT/ML VIAL SQ SCH ×4 (12:07→22:47)
--- NOTE | 2020-10-19 13:29 | P.PN ---
Subjective Progress Note Date: 10/19/20 CHIEF COMPLAINT: Ischemic bowel HISTORY OF PRESENT ILLNESS: Patient is status post exploratory laparotomy, lysis of adhesions and small bowel resection for ischemic bowel and adhesions. Postop day #2. Patient has been transitioned down to MedSurg overflow. He denies any abdominal pain. He denies any bowel movement or flatus. Denies any nausea or vomiting. He is currently nothing by mouth. Urine output is marginal .Afebrile. WBC 17.1 Hgb 11 potassium 5.2 Chest x-ray bilateral infiltrate and small effusion stable. Large amount of free intra-abdominal air process. Patient seen and examined with Dr. Darnell PHYSICAL EXAM: VITAL SIGNS: Reviewed. GENERAL: Well-developed in no acute distress. HEENT: No sclera icterus. Extraocular movements grossly intact. Moist buccal mucosa. Head is atraumatic, normocephalic. ABDOMEN: Soft. Nondistended. Incision dressing clean dry and intact NEUROLOGIC: Alert and oriented. Cranial nerves II through XII grossly intact. ASSESSMENT: 1. Ischemic bowel with adhesions status post exploratory laparotomy, lysis of adhesions and small bowel resection 2. Diabetes mellitus type 2 PLAN: -Continue supportive care -Continue antibiotics -continue IV fluids -Continue pain medication as needed -Continue Protonix for GI prophylaxis and subcu heparin for DVT prophylaxis Physician Balance Screwhead Polisher note has been reviewed by physician. Signing provider agrees with the documented findings, assessment, and plan of care. Objective - Vital Signs Vital signs: Vital Signs Temp 98.1 F 10/19/20 08:00 Pulse 91 10/19/20 08:00 Resp 16 10/19/20 08:00 BP 112/63 10/19/20 08:00 Pulse Ox 98 10/19/20 08:00 Intake & Output 10/18/20 10/19/20 10/19/20 18:59 06:59 18:59 Intake Total 1500 1800 150 Output Total 160 320 15 Balance 1340 1480 135 Weight 80 kg Intake: IV 1500 1800 150 Lactated Ringers 1500 1800 150 Output: Urine 160 320 15 Other: Voiding Method Indwelling Catheter Indwelling Catheter Indwelling Catheter - Labs CBC & Chem 7: 10/19/20 04:18 10/19/20 04:18 Labs: Abnormal Lab Results - Last 24 Hours (Table) 10/18/20 10/18/20 10/18/20 Range/Units 03:59 16:50 21:03 WBC (3.8-10.6) k/uL RBC (4.30-5.90) m/uL Hgb (13.0-17.5) gm/dL Hct (39.0-53.0) % RDW (11.5-15.5) % Neutrophils # (1.3-7.7) k/uL Lymphocytes # (1.0-4.8) k/uL Monocytes # (0-1.0) k/uL Potassium (3.5-5.1) mmol/L BUN (9-20) mg/dL Glucose (74-99) mg/dL POC Glucose (mg/dL) 114 H 137 H (75-99) mg/dL Hemoglobin A1c 7.7 H (4.0-6.0) % 10/19/20 10/19/20 10/19/20 Range/Units 04:18 04:18 06:48 WBC 17.1 H (3.8-10.6) k/uL RBC 3.80 L (4.30-5.90) m/uL Hgb 11.0 L (13.0-17.5) gm/dL Hct 33.4 L (39.0-53.0) % RDW 19.0 H (11.5-15.5) % Neutrophils # 15.0 H (1.3-7.7) k/uL Lymphocytes # 0.9 L (1.0-4.8) k/uL Monocytes # 1.1 H (0-1.0) k/uL Potassium 5.2 H (3.5-5.1) mmol/L BUN 45 H (9-20) mg/dL Glucose 124 H (74-99) mg/dL POC Glucose (mg/dL) 142 H (75-99) mg/dL Hemoglobin A1c (4.0-6.0) % 10/19/20 Range/Units 11:56 WBC (3.8-10.6) k/uL RBC (4.30-5.90) m/uL Hgb (13.0-17.5) gm/dL Hct (39.0-53.0) % RDW (11.5-15.5) % Neutrophils # (1.3-7.7) k/uL Lymphocytes # (1.0-4.8) k/uL Monocytes # (0-1.0) k/uL Potassium (3.5-5.1) mmol/L BUN (9-20) mg/dL Glucose (74-99) mg/dL POC Glucose (mg/dL) 116 H (75-99) mg/dL Hemoglobin A1c (4.0-6.0) %
[2020-10-19] MEDS: SODIUM CHLORIDE 0.9% 1,000 ML IV SCH ×2 (14:26→20:04)
[2020-10-19 17:23] LABS: Glucose,Whole Blood 130 mg/dL (75-99)
[2020-10-19 20:25] LABS: Glucose,Whole Blood 139 mg/dL (75-99)
[2020-10-20] MEDS: INSULIN ASPART (NovoLOG) 100 UNIT/ML VIAL SQ SCH ×3 (05:46→17:07)
[2020-10-20 06:56] LABS: Glucose,Whole Blood 150 mg/dL (75-99)
[2020-10-20] MEDS: HYDROmorphone 0.5 MG/0.5 ML SYRINGE IVP PRN ×4 (07:03→20:40)
[2020-10-20] MEDS: PIPERACILLIN-TAZOBACTAM 3.375 GM in SODIUM CHLORIDE 0.9% 100 ML IVPB SCH ×2 (07:31→16:03)
[2020-10-20] MEDS: HEPARIN SODIUM,PORCINE 5,000 UNIT/ML 1 ML VIAL SQ SCH ×2 (07:32→16:03)
[2020-10-20] MEDS: PANTOPRAZOLE 40 MG/10 ML VIAL IVP SCH (09:04)
[2020-10-20 09:12] LABS: Anisocytosis Slight; Basophils # (A) 0.1 k/uL (0-0.2); Basophils % (A) 0 %; Eosinophils % (A) 0 %; HCT 34.8 % (39.0-53.0); HGB 10.8 gm/dL (13.0-17.5); Hypochromasia Marked; Lymphocytes # (A) 0.9 k/uL (1.0-4.8); Lymphocytes % (A) 5 %; MCH 28.6 pg (25.0-35.0); MCV 92.1 fL (80.0-100.0); Mean Platelet Volume 7.4; Monocytes # (A) 1.1 k/uL (0-1.0); Monocytes % (A) 6 %; Neutrophils # (A) 14.7 k/uL (1.3-7.7); Neutrophils % (A) 87 %; Platelet Count 269 k/uL (150-450); RBC 3.78 m/uL (4.30-5.90); RDW 18.6 % (11.5-15.5); WBC 16.9 k/uL (3.8-10.6)
[2020-10-20 09:27] LABS: African American GFR (CKD) 86.8 (60.0-200.0); Anion Gap 15.1 mmol/L (4.00-12.00); Calcium 8.2 mg/dL (8.7-10.3); Carbon Dioxide 16.9 mmol/L (21.6-31.8); Non-African American GFR(CKD) 74.9 (60.0-200.0); Potassium 5.3 mmol/L (3.5-5.5)
--- NOTE | 2020-10-20 09:49 | XR ---
EXAMINATION TYPE: XR chest 1V DATE OF EXAM: 10/20/2020 COMPARISON: Chest x-ray 10/19/2020 HISTORY: Abnormal chest x-ray TECHNIQUE: Single frontal view of the chest is obtained. FINDINGS: Pneumoperitoneum change is again noted. There is lucency beneath the hemidiaphragms. Patie nt is post median sternotomy. Patchy basilar density is noted, difficult to exclude pleural effusion. No evident pneumothorax. Aorta is dense. Heart is enlarged. There is perihilar increased attenuation . IMPRESSION: Pneumoperitoneum as noted on previous exams. Correlate for edema, pneumonia, atelectasis , difficult to exclude effusion
[2020-10-20] MEDS ORDERED: FUROSEMIDE 10 MG/ML 2 ML VIAL IV ONE (11:03)
--- NOTE | 2020-10-20 11:07 | P.PN ---
Subjective Progress Note Date: 10/20/20 70-year-old male patient who arrived from the operating room where the patient had a extensive laparotomy, lysis of adhesions and small bowel resection for ischemic bowel. The patient was found to have ischemic bowel intraoperatively. Postop, the patient was extubated and patient was brought into the ICU for further care. At this point in time the patient is on oxygen at 3 L and his pulse ox around 93%. His BP is 101/56. He has nausea upper extremity peripheral IV. No central lines inserted. He has a Bowman catheter in place. He is currently running IV fluids at the rate of 150 mL an hour of normal saline. He will be given a 2 L bolus immediately here in the ICU knowing that his urine output has been in the order of 10-20 mL an hour. The patient came into the emergency department on October 16 and the patient was complaining of abdominal pain and he also had some lactic acidosis. Note that he has vasculopathy angios diabetes mellitus hypertension and underlying dementia and he is also known to have CAD and prostate cancer for which she has associated radiation therapy. The patient had a CAT scan of the abdomen and pelvis that was done in the emergency department yesterday and the CAT scan showed no evidence of any free air. There was diffuse pneumatosis intestinalis involving the mid and the distal portion of the small bowel loops with 40 venous gas consistent with bowel ischemia. There was also associated mild to moderate grade of an ileus. For that reason, the patient was taken to the operating room today. Note that his lactic acid level was 5.4. Currently is awake. Is unresponsive. Moving all 4 extremities. The patient already received a total of 4 L of fluid boluses. He is currently on IV Zosyn. Today's evaluation of 10/18/2020, the patient is postop day #1 following exploratory laparotomy and small bowel resection for underlying bowel ischemia. The patient was extubated and recovered. He remains extubated for now. Is on oxygen at 3 L and his pulse ox is around 97%. He is not using his incentive spirometer aggressively. Hemodynamically, he is stable on no pressors. IV fluids are running in the form of normal saline at rate of 150 mL an hour. The fluid balance over the past 24 hours has been +4.8 L of the patient received several fluid boluses. His urine output was lower running between 10-20 mL an hour and the last bolus of fluid was given to him at around 8 PM yesterday. The patient's blood work from today shows a white cell count of 16 with a hemoglobin of 10. Note that the patient received also units of packed RBC yesterday. His BUN is 33 with a creatinine of 0.9. LFTs are improving including an AST of 307, ALT of 306 and the rest of the electrodes are all within normal limits. Albumin is down to 2.3. Surgical wound site over the anterior abdominal wall is dry clean and intact. The patient has no drains. Bowel sounds are quite hypoactive. Chest x-ray showing air under the right hemidiaphragm, likely posts urgical. The patient has signs of previous thoracotomy. Atelectatic changes can be seen also in the lung bases bilaterally. There is also right pleural thickening. Note that the patient's lactic is down to 1.2 acute on insulin drip last night and the patient was placed on insulin drip yesterday upon my request and the blood sugars under tighter control and current insulin drip is off and the patient is on a sliding scale coverage. 10/19/2020 the patient is being seen for a follow-up. The patient is postop day #2 and the patient underwent laparotomy and small bowel resection for bowel is chemia. As mentioned, the patient was extubated without any major difficulties. This morning he is on room air oxygen. He is using incentive spirometer and he remains hemodynamically stable. No reported abdominal pain for now. The patient has not passed any flatus yet. No major abdominal distention. No nausea. No vomiting. He remains on IV Zosyn for now. White cell count is at 17 which is essentially compatible to yesterday. The patient has no symptoms to metabolic acidosis. Serum bicarb is 25. His creatinine is at 1.1. Surgical wound site is dry clean and intact. No other significant events otherwise for now. He is receiving Dilaudid for pain control and he is also on heparin subcu for DVT prophylaxis. Blood sugars are also under good control and the patient is receiving sliding scale coverage insulin drip has been discontinued. No other significant events overnight. He is awake and alert and is following commands. On today's evaluation of the 2020 the patient is currently on a medical floor and was transferred out of the intensive care unit. His postop day #3. He is doing well. His chest x-ray from today shows some interstitial edema. There are some air under the right hemidiaphragm. There is also cardiomegaly. There may be some interstitial edema and fluid overload. His fluid balance has been positive more than 6 or 7 L over the past 48 hours. He is currently on normal saline at the rate of 100 mL an hour. He still nothing by mouth. We are going to proceed with some clear liquid diet today. He remains on IV Zosyn. Surgical wound site is dry clean and intact. No abdominal pain. No abdominal tenderness. White cell count today is at 16.9. Was attempted 0.8. General surgeries on the case. He also has some increased swelling in left upper extremity and the patient is going to have a ultrasound Doppler to rule out DVT. Objective - Vital Signs Vital signs: Vital Signs Temp 98.2 F 10/20/20 06:41 Pulse 79 10/20/20 07:15 Resp 18 10/20/20 07:15 BP 110/63 10/20/20 06:41 Pulse Ox 96 10/20/20 06:41 Intake & Output 10/19/20 10/20/20 10/20/20 18:59 06:59 18:59 Intake Total 150 1300 Output Total 815 300 475 Balance -665 1000 -475 Intake: IV 150 Lactated Ringers 150 Intake, IV Titration 1300 Amount Piperacillin-Tazobactam 3 100 .375 gm In Sodium Chloride 0.9% 100 ml @ 25 mls/hr IVPB Q8HR [facility] Rx# :[id number] Sodium Chloride 0.9% 1, 1200 000 ml @ 100 mls/hr IV . Q10H [facility] Rx#:[id number] Oral 0 Output: Urine 815 300 475 Other: Voiding Method Indwelling Catheter Indwelling Catheter Indwelling Catheter - Exam Gen. appearance the patient is calm and comfortable likely distress, room air oxygen Head exam was generally normal. There was no scleral icterus or corneal arcus. M ucous membranes were moist. Neck was supple and without jugular venous distension, thyromegaly, or carotid bruits. Carotids were easily palpable bilaterally. There was no adenopathy. Lungs sounds are diminished yet the BS diminished symmetrical bilaterally. Cardiac exam revealed the PMI to be normally situated and sized. The rhythm was regular and no extrasystoles were noted during several minutes of auscultation. The first and second heart sounds were normal and physiologic splitting of the second heart sound was noted. There were grade 3/6 left precordial murmurs, rubs, clicks, or gallops. Abdomen is soft. Surgical wound site is dry clean and intact. No direct tenderness. No rebound tenderness. No guarding. The patient's has a clean incision sites. No organomegaly. No bowel sounds. The patient is not passing any flatus yet. Examination of the extremities revealed easily palpable radial, femoral and pedal pulses. There was no cyanosis, clubbing or edema. Examination of the skin revealed no evidence of significant rashes, suspicious appearing nevi or other concerning lesions. Neurologically, the patient is awake and alert and the patient does not have any focal neurological deficit. Cranial nerves are essentially intact. - Labs CBC & Chem 7: 10/20/20 06:39 10/20/20 06:39 Labs: Abnormal Lab Results - Last 24 Hours (Table) 10/19/20 10/19/20 10/19/20 Range/Units 11:56 17:22 20:23 WBC (3.8-10.6) k/uL RBC (4.30-5.90) m/uL Hgb (13.0-17.5) gm/dL Hct (39.0-53.0) % RDW (11.5-15.5) % Neutrophils # (1.3-7.7) k/uL Lymphocytes # (1.0-4.8) k/uL Monocytes # (0-1.0) k/uL Carbon Dioxide (21.6-31.8) mmol/L Anion Gap (4.00-12.00) mmol/L BUN (9.0-27.0) mg/dL BUN/Creatinine Ratio (12.00-20.00) Ratio Glucose (70-110) mg/dL POC Glucose (mg/dL) 116 H 130 H 139 H (75-99) mg/dL Calcium (8.7-10.3) mg/dL 10/20/20 10/20/20 10/20/20 Range/Units 06:39 06:39 06:55 WBC 16.9 H (3.8-10.6) k/uL RBC 3.78 L (4.30-5.90) m/uL Hgb 10.8 L (13.0-17.5) gm/dL Hct 34.8 L (39.0-53.0) % RDW 18.6 H (11.5-15.5) % Neutrophils # 14.7 H (1.3-7.7) k/uL Lymphocytes # 0.9 L (1.0-4.8) k/uL Monocytes # 1.1 H (0-1.0) k/uL Carbon Dioxide 16.9 L (21.6-31.8) mmol/L Anion Gap 15.10 H (4.00-12.00) mmol/L BUN 50.0 H (9.0-27.0) mg/dL BUN/Creatinine Ratio 50.00 H (12.00-20.00) Ratio Glucose 147 H (70-110) mg/dL POC Glucose (mg/dL) 150 H (75-99) mg/dL Calcium 8.2 L (8.7-10.3) mg/dL Assessment and Plan Plan: 1 Acute ischemic small bowel with pneumatosis intestinalis, the patient is post that the laparotomy and small bowel resection and the patient is postop day #3 The patient is doing well. The chest x-ray today still showing some and out of the right hemidiaphragm. There is additional edema and some atelectatic changes in lung bases. The patient may be in some mild degree of fluid overload.. The patient is not having any flatus. Bowel sounds remain quite hypoactive. 2 hypotension secondary to above, consider underlying sepsis of an abdominal source secondary to bowel ischemia, recovered 3 acute lactic acidosis secondary to above, Lactic acid level is down to 1.2 4 acute leukocytosis , White count is 16 5 coronary artery disease with previous bypass surgery 6 diabetes mellitus , BS improved blood sugar control and the patient is currently off insulin drip 7 peripheral vascular disease with previous intervention and stenting of the lower extremities 8 hypertension 9 hyperlipidemia 10 hypothyroidism 11 prostate cancer with previous radiation therapy 12 left upper extremity swelling with a basilic vein thrombosis, superficial vein. He did have several IV lines in that left upper extremity. Plan Continue NS at the rate of 50 cc an hour and the patient will be given a dose of Lasix 20 mg IV push Clear liquid diet Continue IV Zosyn Dilaudid for pain control Heparin subcu for DVT prophylaxis 5000 every 8 IV Protonix Incentive spirometer Set him up on a chair We'll continue to follow here if he is currently outside the intensive care unit.
[2020-10-20 11:13] LABS: Glucose,Whole Blood 139 mg/dL (75-99)
--- NOTE | 2020-10-20 11:21 | US ---
EXAMINATION TYPE: US venous doppler duplex UE LT DATE OF EXAM: 10/20/2020 COMPARISON: NONE CLINICAL HISTORY: Left arm swelling. multiple iv's, swelling, no h/o dvt SIDE PERFORMED: Left Left Arm: Negative for DVT, superficial thrombus within basilic in left forearm, internal, noncompres sible echoes seen. There is normal flow, compressibility and vascular waveforms within the visualized portions the left internal jugular vein, left subclavian vein, central cephalic vein, left brachial vein, basilic vein and cephalic vein. At the level of the left basilic vein at the forearm there is low-level internal e choes and noncompressibility, lack of color flow, there are edema channels present within the soft ti ssues. Radial veins and ulnar veins appear compressible. IMPRESSION: No evident deep venous arthrosis. Superficial venous thrombosis within the basilic vein as described.
[2020-10-20] MEDS: SODIUM CHLORIDE 0.9% 1,000 ML IV SCH ×2 (11:37→20:58)
--- NOTE | 2020-10-20 13:08 | P.PN ---
Subjective Progress Note Date: 10/20/20 CHIEF COMPLAINT: Ischemic bowel HISTORY OF PRESENT ILLNESS: Patient is status post exploratory laparotomy, lysis of adhesions and small bowel resection for ischemic bowel and adhesions. Postop day #3. Patient transferred out of the ICU yesterday. He denies any abdominal pain. He denies any bowel movement or flatus. Denies any nausea or vomiting. He is currently nothing by mouth. Urine output has shown improvement. Afebrile. WBC 16.9 Hgb 10.8 potassium 5.3 sodium 140 creatinine 1.0 patient did receive a dose of IV Lasix and IV fluid rate was decreased by critical care service. Venous Doppler left upper extremity no evidence of DVT. Superficial venous thrombosis within the basilic vein. Chest x-ray pneumoperitoneum as noted on previous exams. Correlate for edema, pneumonia, atelectasis, difficult to exclude effusion Patient seen and examined with Dr. Darnell PHYSICAL EXAM: VITAL SIGNS: Reviewed. GENERAL: Well-developed in no acute distress. HEENT: No sclera icterus. Extraocular movements grossly intact. Moist buccal mucosa. Head is atraumatic, normocephalic. ABDOMEN: Soft. Nondistended. Incision dressing clean dry and intact NEUROLOGIC: Alert and oriented. Cranial nerves II through XII grossly intact. ASSESSMENT: 1. Ischemic bowel with adhesions status post exploratory laparotomy, lysis of adhesions and small bowel resection 2. Diabetes mellitus type 2 PLAN: -Start sips of clears -Continue supportive care -Continue antibiotics -continue IV fluids -Continue pain medication as needed -Encouraged patient to use incentive spirometer -Encouraged patient to increase activity -Continue Protonix for GI prophylaxis and subcu heparin for DVT prophylaxis Physician Charm Filter Operator Helper note has been reviewed by physician. Signing provider agrees with the documented findings, assessment, and plan of care. Objective - Vital Signs Vital signs: Vital Signs Temp 98.5 F 10/20/20 12:47 Pulse 91 10/20/20 12:47 Resp 18 10/20/20 12:47 BP 143/63 10/20/20 12:47 Pulse Ox 96 10/20/20 12:47 Intake & Output 10/19/20 10/20/20 10/20/20 18:59 06:59 18:59 Intake Total 150 1300 Output Total 815 300 475 Balance -665 1000 -475 Intake: IV 150 Lactated Ringers 150 Intake, IV Titration 1300 Amount Piperacillin-Tazobactam 3 100 .375 gm In Sodium Chloride 0.9% 100 ml @ 25 mls/hr IVPB Q8HR [facility] Rx# :[id number] Sodium Chloride 0.9% 1, 1200 000 ml @ 100 mls/hr IV . Q10H [facility] Rx#:[id number] Oral 0 Output: Urine 815 300 475 Other: Voiding Method Indwelling Catheter Indwelling Catheter Indwelling Catheter - Labs CBC & Chem 7: 10/20/20 06:39 10/20/20 06:39 Labs: Abnormal Lab Results - Last 24 Hours (Table) 10/19/20 10/19/20 10/20/20 Range/Units 17:22 20:23 06:39 WBC 16.9 H (3.8-10.6) k/uL RBC 3.78 L (4.30-5.90) m/uL Hgb 10.8 L (13.0-17.5) gm/dL Hct 34.8 L (39.0-53.0) % RDW 18.6 H (11.5-15.5) % Neutrophils # 14.7 H (1.3-7.7) k/uL Lymphocytes # 0.9 L (1.0-4.8) k/uL Monocytes # 1.1 H (0-1.0) k/uL Carbon Dioxide (21.6-31.8) mmol/L Anion Gap (4.00-12.00) mmol/L BUN (9.0-27.0) mg/dL BUN/Creatinine Ratio (12.00-20.00) Ratio Glucose (70-110) mg/dL POC Glucose (mg/dL) 130 H 139 H (75-99) mg/dL Calcium (8.7-10.3) mg/dL 10/20/20 10/20/20 10/20/20 Range/Units 06:39 06:55 11:11 WBC (3.8-10.6) k/uL RBC (4.30-5.90) m/uL Hgb (13.0-17.5) gm/dL Hct (39.0-53.0) % RDW (11.5-15.5) % Neutrophils # (1.3-7.7) k/uL Lymphocytes # (1.0-4.8) k/uL Monocytes # (0-1.0) k/uL Carbon Dioxide 16.9 L (21.6-31.8) mmol/L Anion Gap 15.10 H (4.00-12.00) mmol/L BUN 50.0 H (9.0-27.0) mg/dL BUN/Creatinine Ratio 50.00 H (12.00-20.00) Ratio Glucose 147 H (70-110) mg/dL POC Glucose (mg/dL) 150 H 139 H (75-99) mg/dL Calcium 8.2 L (8.7-10.3) mg/dL
--- NOTE | 2020-10-20 13:54 | P.PN ---
Subjective This is a 70-year-old male with a past medical history significant for coronary artery disease with previous stenting and CABG 5 in 1998, ischemic cardiomyopathy, congestive heart failure, severe aortic stenosis, Vascular dementia, peripheral vascular disease with previous stenting of his lower extremities, Type 2 diabetes mellitus, DVT, hypertension, hyperlipidemia, prostate cancer, and former nicotine dependence. Patient did see Dr. Hubbard in the office 06/12/2020. Patient did move to [place] from [place] and used to follow with a naval architect in [place] (Records from [place] have not been obtained from the outpatient office at this time). We have been asked to see the patient in consultation for cardiac history. Patient is status post exploratory laparotomy, lysis of adhesions, and small bowel resection secondary to ischemic bowel on 10/17/[address] Darnell. Patient was admitted to [facility] in April 2020 with complaints of abdominal pain (diagnosed with acute enteritis and BRINDA). Also found to have elevated troponins and that time an echocardiogram showed an ejection fraction of 40%, severe aortic stenosis peak gradient of 30mmHg and mean gradient of 15mmHg, RVSP within normal limits, mild to moderate mitral regurgitation. Cardiology was consulted, it was discussed with family that only conservative measures would be pursued. Kidney function improved with IV fluids. Patient was optimized on aspirin, lipitor 80mg, and a beta claudia 50mg BID. EKG reveals sinus mechanism with T-wave inversions laterally Chest xray bilateral areas of infiltrate and pleural effusions. Stable from previous exam. Current home cardiac medications include ezetimibe 10 mg daily, Plavix 75 mg daily, atorvastatin 80 mg daily, lisinopril 20 mg twice a day, and aspirin 81 mg daily. Beta claudia not currently on patient's medication list. However, spoke to patient's and she remembers the patient has been on this medication but not sure when or why it was stopped. Echocardiogram completed reveals ejection fraction 20-25% with global dysfunctio n except lateral wall shows fair motion, mild aortic regurgitation, mild aortic stenosis, moderate mitral regurgitation, mild tricuspid regurgitation, and mild pulmonary hypertension. 10/20/2020 Patient examined this morning at bedside, lying in bed, in no acute distress. Patient denies chest pain or pressure. He denies shortness of breath. He denies passing flatus. He has been started on a clear liquid diet. Blood pressure 143/63, heart rate 91, afebrile, maintaining oxygen saturation summary room air. Telemetry reviewed patient sinus rhythm heart rate 70s80s, occasional PVC. Laboratory data reviewed: WBC 6.9, hemoglobin 10.8, platelets 269, sodium 140, potassium 5.3, creatinine 1.0 (baseline 0.8-1.0), BUN 50 PHYSICAL EXAM: VITAL SIGNS: Reviewed. GENERAL: Well-developed in no acute distress. HEENT: Mucous membranes of the mouth are moist. Neck supple. No JVD or thyromegaly LUNGS: Respirations even and unlabored. Lungs diminished bilaterally. HEART: Regular rate and rhythm. S1 and S2 heard. Systolic murmur noted. ABDOMEN: soft, nondistended. incision covered with dry gauze dressing EXTREMITIES: Normal range of motion. No clubbing or cyanosis. Peripheral pulses intact. No lower extremity edema ASSESSMENT: Acute ischemic bowel with pneumatosis intestinalis, status post exploratory laparotomy, lysis of adhesions, and small bowel resection Hypotension, improved with IV hydration Leukocytosis Lactic acidosis, resolved Elevated LFTs Coronary artery disease with previous stenting and CABG 1998 Ischemic cardiomyopathy, ejection fraction 20-25% Peripheral vascular disease with previous stenting of the lower extremities Diabetes mellitus Hypertension Hyperlipidemia History of prostate cancer Former nicotine dependence PLAN: -Patient started on clear liquid diet and Cleared by general surgery to restart home cardiac medications (aspirin, Plavix, Lipitor, Zetia, and lisinopril) -Will start coreg 3.125mg BID and Spironolactone 12.5mg -Continue telemetry monitoring -Further recommendations pending patient course Nurse practitioner note has been reviewed by physician. Signing provider agrees with the documented findings, assessment, and plan of care. Objective - Vital Signs Vital signs: Vital Signs Temp 98.2 F 10/20/20 06:41 Pulse 79 10/20/20 06:41 Resp 18 10/20/20 06:41 BP 110/63 10/20/20 06:41 Pulse Ox 96 10/20/20 06:41 Intake & Output 10/19/20 10/20/20 10/20/20 18:59 06:59 18:59 Intake Total 150 1300 Output Total 815 300 Balance -665 1000 Intake: IV 150 Lactated Ringers 150 Intake, IV Titration 1300 Amount Piperacillin-Tazobactam 3 100 .375 gm In Sodium Chloride 0.9% 100 ml @ 25 mls/hr IVPB Q8HR [facility] Rx# :[id number] Sodium Chloride 0.9% 1, 1200 000 ml @ 100 mls/hr IV . Q10H [facility] Rx#:[id number] Oral 0 Output: Urine 815 300 Other: Voiding Method Indwelling Catheter Indwelling Catheter - Labs CBC & Chem 7: 10/20/20 06:39 10/20/20 06:39 Labs: Abnormal Lab Results - Last 24 Hours (Table) 10/19/20 10/19/20 10/19/20 Range/Units 11:56 17:22 20:23 POC Glucose (mg/dL) 116 H 130 H 139 H (75-99) mg/dL 10/20/20 Range/Units 06:55 POC Glucose (mg/dL) 150 H (75-99) mg/dL
[2020-10-20] MEDS: SPIRONOLACTONE 25 MG TAB PO SCH (14:13)
[2020-10-20] MEDS: lisinopriL 20 MG TAB PO SCH ×2 (14:13→20:37)
[2020-10-20] MEDS: ASPIRIN 81 MG PO SCH (14:13)
[2020-10-20] MEDS: ATORVASTATIN 80 MG TAB PO SCH (14:14)
[2020-10-20] MEDS: CLOPIDOGREL 75 MG TAB PO SCH (14:15)
[2020-10-20] MEDS: EZETIMIBE 10 MG TAB PO SCH (14:15)
[2020-10-20 14:26] VITALS: BMI 27.6
--- NOTE | 2020-10-20 14:37 | P.PN ---
Subjective Progress Note Date: 10/19/20 Principal diagnosis: Ischemic bowel s/p resection Mr. Joiner is a 70-year-old male with a past medical history of coronary artery disease, dementia, diverticulitis, DVT, hypertension, hyperlipidemia, thyroid disorder, prostate cancer coming into the hospital yesterday with a chief complaint of abdominal pain. Patient was having pain mostly in the center of his abdomen, which was sharp in nature and 10 out of 10 in intensity. He also had one episode of vomiting along with diarrhea and stools that are dark in color. Patient is on aspirin and Plavix at home. In the ER patient had a CAT scan of the abdomen and pelvis showing diffuse pneumatosis intestinalis involving mid to distal small bowel loops with portal venous gas consistent with bowel ischemia. There is associated moderate grade years. So the patient was taken to the ER and had exploratory laparotomy done earlier this morning. Intraoperatively patient required pressor support to maintain his blood pressur e. Postop patient was extubated and transferred to the ICU for further care. Postop patient had decreased urine output, so currently receiving his second liter of bolus in the ICU. On 10/18/2020 - patient was seen and examined in the ICU at bedside. Patient's at the bedside. As per discussion with the , patient has been confused thinks that there are people in the hallways collecting funds for his disability. She mentions that patient has history of dementia. Patient complains of abdominal soreness. He denies having any chest pain or palpitations. He has a Bowman's catheter in place with good urinary output. On reviewing his vitals T-max of 98.6, heart rate in 90s to 100s, blood pressure 110s/50s to 60s, saturating at 94% on room air. He is currently getting IV fluids, insulin drip and Zosyn. On reviewing the labs white count of 16.6, hemoglobin 10, platelets 258. INR of 1.2. Sodium 138, potassium 4.1, chloride 1 as is, bicarbonate, BUN 33, creatinine 0.95. Hemoglobin A1c 7.7. AST 307, ALT 306. On 10/19/2020 - patient was seen and examined at the bedside. Patient has been transferred to the regular medical floor since morning. Patient states that he's been having swelling of his left upper extremity. On talking with nursing staff, patient had 2 IVs that have infiltrate in the left cubital fossa and also he had a blood pressure cuff titrate to his upper arm in the ICU. Patient denies having any pain in his left upper extremity. Patient denies having any chest pain or palpitations. No cough or difficulty in breathing. He complains of abdominal soreness. On reviewing the vitals, temperature 97.3, heart rate 82, respiratory rate 14, blood pressure 135/76, saturating at 97% on room air. On reviewing his labs white count of 17.1, hemoglobin 11, platelets 263. Sodium 137, potassium 5.0, chloride 104, bicarbonate 25, BUN 45, creatinine 1.15. Active Medications Heparin Sodium (Porcine) (Heparin Sodium,Porcine 5,000 Unit/Ml 1 Ml Vial) 5,000 unit SQ Q8HR [facility] Last Admin: 10/19/20 22:49 Dose: 5,000 unit Documented by: Hydromorphone HCl (Hydromorphone 0.5 Mg/0.5 Ml Syringe) 0.5 mg IVP Q3HR PRN PRN Reason: Moderate to Severe Pain Last Admin: 10/19/20 20:03 Dose: 0.5 mg Documented by: Piperacillin Sod/Tazobactam (Sod 3.375 gm/ Sodium Chloride) 100 mls @ 25 mls/hr IVPB Q8HR [facility] Last Admin: 10/19/20 22:49 Dose: 25 mls/hr Documented by: Sodium Chloride (Saline 0.9%) 1,000 mls @ 100 mls/hr IV .Q10H [facility] Last Admin: 10/19/20 20:04 Dose: Not Given Documented by: Insulin Aspart (Insulin Aspart (Novolog) 100 Unit/Ml Vial) 0 unit SQ Q6H [facility]; Protocol Last Admin: 10/19/20 22:47 Dose: Not Given Documented by: Morphine Sulfate (Morphine Sulfate 4 Mg/Ml Syringe) 4 mg IV Q4HR PRN PRN Reason: Severe Pain Last Admin: 10/17/20 04:07 Dose: 4 mg Documented by: Naloxone HCl (Naloxone 0.4 Mg/Ml 1 Ml Vial) 0.2 mg IV Q2M PRN PRN Reason: Opioid Reversal Naloxone HCl (Naloxone 0.4 Mg/Ml 1 Ml Vial) 0.2 mg IV Q2M PRN PRN Reason: Opioid Reversal Ondansetron HCl (Ondansetron 4 Mg/2 Ml Vial) 4 mg IVP Q8HR PRN PRN Reason: Nausea And Vomiting Ondansetron HCl (Ondansetron 4 Mg/2 Ml Vial) 4 mg IVP Q6HR PRN PRN Reason: Nausea And Vomiting Pantoprazole Sodium (Pantoprazole 40 Mg/10 Ml Vial) 40 mg IVP DAILY [facility] Last Admin: 10/19/20 08:07 Dose: 40 mg Documented by: Objective - Vital Signs Vital signs: Vital Signs Temp 98.0 F 10/19/20 15:13 Pulse 91 10/19/20 15:13 Resp 16 10/19/20 15:13 BP 109/59 10/19/20 15:13 Pulse Ox 95 10/19/20 15:13 Intake & Output 10/18/20 10/19/20 10/19/20 18:59 06:59 18:59 Intake Total 1500 1800 150 Output Total 160 320 15 Balance 1340 1480 135 Weight 80 kg Intake: IV 1500 1800 150 Lactated Ringers 1500 1800 150 Output: Urine 160 320 15 Other: Voiding Method Indwelling Catheter Indwelling Catheter Indwelling Catheter - Exam PHYSICAL EXAMINATION: GENERAL: The patient is alert and oriented x3, not in any acute distress. HEENT: Pupils are round and equally reacting to light. EOMI. No scleral icterus. mild conjunctival pallor. CARDIOVASCULAR: S1 and S2 present. PULMONARY: Chest is clear to auscultation, no wheezing or crackles. ABDOMEN: Surgical scar in place covered with dressing. Dressing appears clean with no bleeding. Hypoactive bowel sounds. MUSCULOSKELETAL: No joint swelling or deformity. EXTREMITIES: No cyanosis, clubbing, or pedal edema. Left upper extremity - swollen below the elbow, nontender. NEUROLOGICAL: Gross neurological examination did not reveal any focal deficits. SKIN: No rashes. - Labs CBC & Chem 7: 10/20/20 06:39 10/20/20 06:39 Labs: Abnormal Lab Results - Last 24 Hours (Table) 10/18/20 10/18/20 10/18/20 Range/Units 03:59 16:50 21:03 WBC (3.8-10.6) k/uL RBC (4.30-5.90) m/uL Hgb (13.0-17.5) gm/dL Hct (39.0-53.0) % RDW (11.5-15.5) % Neutrophils # (1.3-7.7) k/uL Lymphocytes # (1.0-4.8) k/uL Monocytes # (0-1.0) k/uL Potassium (3.5-5.1) mmol/L BUN (9-20) mg/dL Glucose (74-99) mg/dL POC Glucose (mg/dL) 114 H 137 H (75-99) mg/dL Hemoglobin A1c 7.7 H (4.0-6.0) % 10/19/20 10/19/20 10/19/20 Range/Units 04:18 04:18 06:48 WBC 17.1 H (3.8-10.6) k/uL RBC 3.80 L (4.30-5.90) m/uL Hgb 11.0 L (13.0-17.5) gm/dL Hct 33.4 L (39.0-53.0) % RDW 19.0 H (11.5-15.5) % Neutrophils # 15.0 H (1.3-7.7) k/uL Lymphocytes # 0.9 L (1.0-4.8) k/uL Monocytes # 1.1 H (0-1.0) k/uL Potassium 5.2 H (3.5-5.1) mmol/L BUN 45 H (9-20) mg/dL Glucose 124 H (74-99) mg/dL POC Glucose (mg/dL) 142 H (75-99) mg/dL Hemoglobin A1c (4.0-6.0) % 10/19/20 Range/Units 11:56 WBC (3.8-10.6) k/uL RBC (4.30-5.90) m/uL Hgb (13.0-17.5) gm/dL Hct (39.0-53.0) % RDW (11.5-15.5) % Neutrophils # (1.3-7.7) k/uL Lymphocytes # (1.0-4.8) k/uL Monocytes # (0-1.0) k/uL Potassium (3.5-5.1) mmol/L BUN (9-20) mg/dL Glucose (74-99) mg/dL POC Glucose (mg/dL) 116 H (75-99) mg/dL Hemoglobin A1c (4.0-6.0) % Assessment and Plan Assessment: ASSESSMENT Acute small bowel ischemia with pneumatosis intestinalis Status post exploration laparotomy with bowel resection and lysis of adhesions- postoperative day#2 Hypotension - postop DD: sepsis versus hypovolemia versus blood loss Transaminitis - LFTs trending down Lactic acidosis - trending down Leukocytosis - could be secondary to postop Anemia- could be due to blood loss Coronary artery disease status post CABG Ischemic cardiomyopathy, ejection fraction 20-25% Prostate cancer with radiation therapy Type 2 diabetes mellitus Peripheral vascular disease with previous stenting of lower extremities Hypertension Hyperlipidemia Hypothyroidism Protein calorie malnutrition moderate PLAN: Patient has swelling of his left upper extremity below the elbow joint. As per discussion with nursing staff he had 2 IVs that have infiltrate in that area. We will get an ultrasound of his left upper extremity to rule out DVT. Continue with antibiotics in the form of Zosyn. He is on Dilaudid for pain control. Protonix for GI prophylaxis and heparin for DVT prophylaxis. Continue on sliding scale of insulin for hyperglycemia. Further recommendations to follow depending on the progress of the patient
--- NOTE | 2020-10-20 14:45 | P.PN ---
Subjective Progress Note Date: 10/20/20 Principal diagnosis: Ischemic bowel s/p resection Mr. Joiner is a 70-year-old male with a past medical history of coronary artery disease, dementia, diverticulitis, DVT, hypertension, hyperlipidemia, thyroid disorder, prostate cancer coming into the hospital yesterday with a chief complaint of abdominal pain. Patient was having pain mostly in the center of his abdomen, which was sharp in nature and 10 out of 10 in intensity. He also had one episode of vomiting along with diarrhea and stools that are dark in color. Patient is on aspirin and Plavix at home. In the ER patient had a CAT scan of the abdomen and pelvis showing diffuse pneumatosis intestinalis involving mid to distal small bowel loops with portal venous gas consistent with bowel ischemia. There is associated moderate grade years. So the patient was taken to the ER and had exploratory laparotomy done earlier this morning. Intraoperatively patient required pressor support to maintain his blood pressur e. Postop patient was extubated and transferred to the ICU for further care. Postop patient had decreased urine output, so currently receiving his second liter of bolus in the ICU. On 10/18/2020 - patient was seen and examined in the ICU at bedside. Patient's at the bedside. As per discussion with the , patient has been confused thinks that there are people in the hallways collecting funds for his disability. She mentions that patient has history of dementia. Patient complains of abdominal soreness. He denies having any chest pain or palpitations. He has a Bowman's catheter in place with good urinary output. On reviewing his vitals T-max of 98.6, heart rate in 90s to 100s, blood pressure 110s/50s to 60s, saturating at 94% on room air. He is currently getting IV fluids, insulin drip and Zosyn. On reviewing the labs white count of 16.6, hemoglobin 10, platelets 258. INR of 1.2. Sodium 138, potassium 4.1, chloride 1 as is, bicarbonate, BUN 33, creatinine 0.95. Hemoglobin A1c 7.7. AST 307, ALT 306. On 10/19/2020 - patient was seen and examined at the bedside. Patient has been transferred to the regular medical floor since morning. Patient states that he's been having swelling of his left upper extremity. On talking with nursing staff, patient had 2 IVs that have infiltrate in the left cubital fossa and also he had a blood pressure cuff titrate to his upper arm in the ICU. Patient denies having any pain in his left upper extremity. Patient denies having any chest pain or palpitations. No cough or difficulty in breathing. He complains of abdominal soreness. On reviewing the vitals, temperature 97.3, heart rate 82, respiratory rate 14, blood pressure 135/76, saturating at 97% on room air. On reviewing his labs white count of 17.1, hemoglobin 11, platelets 263. Sodium 137, potassium 5.0, chloride 104, bicarbonate 25, BUN 45, creatinine 1.15. On 10/20/2020 - patient was seen and examined at the bedside. Patient states that he is taking liquid diet and tolerating it okay. But he states that he has loss of appetite. Patient states that his left upper extremity swelling is better compared to yesterday. He denies having any pain. Patient denies having any chest pain or palpitations. No cough or difficulty breathing. Complains of abdominal soreness. On reviewing the vitals, T-max of 98.2, heart rate 70, respiratory rate 18, blood pressure 1 10 x 63, saturating at 93% on room air. On reviewing his labs white count of 16.9, hemoglobin 10.8, platelets 269. Sodium 140, potassium 4.3, chloride 109, bicarb 16, BUN 50, creatinine 1.0. Active Medications Aspirin (Aspirin 81 Mg) 81 mg PO DAILY [facility] Last Admin: 10/20/20 14:13 Dose: 81 mg Documented by: Atorvastatin Calcium (Atorvastatin 80 Mg Tab) 80 mg PO DAILY [facility] Last Admin: 10/20/20 14:14 Dose: 80 mg Documented by: Carvedilol (Carvedilol 3.125 Mg Tab) 3.125 mg PO BID-W/MEALS [facility] Clopidogrel Bisulfate (Clopidogrel 75 Mg Tab) 75 mg PO DAILY [facility] Last Admin: 10/20/20 14:15 Dose: 75 mg Documented by: Ezetimibe (Ezetimibe 10 Mg Tab) 10 mg PO DAILY [facility] Last Admin: 10/20/20 14:15 Dose: 10 mg Documented by: Heparin Sodium (Porcine) (Heparin Sodium,Porcine 5,000 Unit/Ml 1 Ml Vial) 5,000 unit SQ Q8HR [facility] Last Admin: 10/20/20 07:32 Dose: 5,000 unit Documented by: Hydromorphone HCl (Hydromorphone 0.5 Mg/0.5 Ml Syringe) 0.5 mg IVP Q3HR PRN PRN Reason: Moderate to Severe Pain Last Admin: 10/20/20 12:18 Dose: 0.5 mg Documented by: Piperacillin Sod/Tazobactam (Sod 3.375 gm/ Sodium Chloride) 100 mls @ 25 mls/hr IVPB Q8HR [facility] Last Admin: 10/20/20 07:31 Dose: 25 mls/hr Documented by: Sodium Chloride (Saline 0.9%) 1,000 mls @ 50 mls/hr IV .Q20H [facility] Last Admin: 10/20/20 11:37 Dose: 50 mls/hr Documented by: Insulin Aspart (Insulin Aspart (Novolog) 100 Unit/Ml Vial) 0 unit SQ Q6H [facility]; Protocol Last Admin: 10/20/20 13:01 Dose: 1 unit Documented by: Lisinopril (Lisinopril 20 Mg Tab) 20 mg PO BID [facility] Last Admin: 10/20/20 14:13 Dose: 20 mg Documented by: Morphine Sulfate (Morphine Sulfate 4 Mg/Ml Syringe) 4 mg IV Q4HR PRN PRN Reason: Severe Pain Last Admin: 10/17/20 04:07 Dose: 4 mg Documented by: Naloxone HCl (Naloxone 0.4 Mg/Ml 1 Ml Vial) 0.2 mg IV Q2M PRN PRN Reason: Opioid Reversal Naloxone HCl (Naloxone 0.4 Mg/Ml 1 Ml Vial) 0.2 mg IV Q2M PRN PRN Reason: Opioid Reversal Ondansetron HCl (Ondansetron 4 Mg/2 Ml Vial) 4 mg IVP Q8HR PRN PRN Reason: Nausea And Vomiting Ondansetron HCl (Ondansetron 4 Mg/2 Ml Vial) 4 mg IVP Q6HR PRN PRN Reason: Nausea And Vomiting Pantoprazole Sodium (Pantoprazole 40 Mg/10 Ml Vial) 40 mg IVP DAILY [facility] Last Admin: 10/20/20 09:04 Dose: 40 mg Documented by: Spironolactone (Spironolactone 25 Mg Tab) 12.5 mg PO DAILY [facility] Last Admin: 10/20/20 14:13 Dose: 12.5 mg Documented by: Objective - Vital Signs Vital signs: Vital Signs Temp 98.2 F 10/20/20 06:41 Pulse 79 10/20/20 07:15 Resp 18 10/20/20 07:15 BP 110/63 10/20/20 06:41 Pulse Ox 96 10/20/20 06:41 Intake & Output 10/19/20 10/20/20 10/20/20 18:59 06:59 18:59 Intake Total 150 1300 Output Total 815 300 475 Balance -665 1000 -475 Intake: IV 150 Lactated Ringers 150 Intake, IV Titration 1300 Amount Piperacillin-Tazobactam 3 100 .375 gm In Sodium Chloride 0.9% 100 ml @ 25 mls/hr IVPB Q8HR [facility] Rx# :[id number] Sodium Chloride 0.9% 1, 1200 000 ml @ 100 mls/hr IV . Q10H [facility] Rx#:[id number] Oral 0 Output: Urine 815 300 475 Other: Voiding Method Indwelling Catheter Indwelling Catheter Indwelling Catheter - Exam PHYSICAL EXAMINATION: GENERAL: The patient is alert and oriented x3, not in any acute distress. HEENT: Pupils are round and equally reacting to light. EOMI. No scleral icterus. mild conjunctival pallor. CARDIOVASCULAR: S1 and S2 present. PULMONARY: Chest is clear to auscultation, no wheezing or crackles. ABDOMEN: Surgical scar in place covered with dressing. Dressing appears clean with no bleeding. Hypoactive bowel sounds. MUSCULOSKELETAL: No joint swelling or deformity. EXTREMITIES: No cyanosis, clubbing, or pedal edema. Left upper extremity - swelling below the elbow, less compared to yesterday NEUROLOGICAL: Gross neurological examination did not reveal any focal deficits. SKIN: No rashes. - Labs CBC & Chem 7: 10/20/20 06:39 10/20/20 06:39 Labs: Abnormal Lab Results - Last 24 Hours (Table) 10/19/20 10/19/20 10/20/20 Range/Units 17:22 20:23 06:39 WBC 16.9 H (3.8-10.6) k/uL RBC 3.78 L (4.30-5.90) m/uL Hgb 10.8 L (13.0-17.5) gm/dL Hct 34.8 L (39.0-53.0) % RDW 18.6 H (11.5-15.5) % Neutrophils # 14.7 H (1.3-7.7) k/uL Lymphocytes # 0.9 L (1.0-4.8) k/uL Monocytes # 1.1 H (0-1.0) k/uL Carbon Dioxide (21.6-31.8) mmol/L Anion Gap (4.00-12.00) mmol/L BUN (9.0-27.0) mg/dL BUN/Creatinine Ratio (12.00-20.00) Ratio Glucose (70-110) mg/dL POC Glucose (mg/dL) 130 H 139 H (75-99) mg/dL Calcium (8.7-10.3) mg/dL 10/20/20 10/20/20 10/20/20 Range/Units 06:39 06:55 11:11 WBC (3.8-10.6) k/uL RBC (4.30-5.90) m/uL Hgb (13.0-17.5) gm/dL Hct (39.0-53.0) % RDW (11.5-15.5) % Neutrophils # (1.3-7.7) k/uL Lymphocytes # (1.0-4.8) k/uL Monocytes # (0-1.0) k/uL Carbon Dioxide 16.9 L (21.6-31.8) mmol/L Anion Gap 15.10 H (4.00-12.00) mmol/L BUN 50.0 H (9.0-27.0) mg/dL BUN/Creatinine Ratio 50.00 H (12.00-20.00) Ratio Glucose 147 H (70-110) mg/dL POC Glucose (mg/dL) 150 H 139 H (75-99) mg/dL Calcium 8.2 L (8.7-10.3) mg/dL Assessment and Plan Assessment: ASSESSMENT Acute small bowel ischemia with pneumatosis intestinalis Status post exploration laparotomy with bowel resection and lysis of adhesions- postoperative day# 3 Hypotension - resolved Transaminitis - LFTs trending down Lactic acidosis - trending down Leukocytosis - could be secondary to postop Anemia- could be due to blood loss Coronary artery disease status post CABG Ischemic cardiomyopathy, ejection fraction 20-25% Prostate cancer with radiation therapy Type 2 diabetes mellitus Peripheral vascular disease with previous stenting of lower extremities Hypertension Hyperlipidemia Hypothyroidism Protein calorie malnutrition moderate PLAN: Patient has swelling of his left upper extremity below the elbow joint yesterday, So patient had an ultrasound Doppler of his left upper extremity y esterday showing superficial vein thrombosis within the basilic vein. No evidence of DVT. Continue with antibiotics in the form of Zosyn. He is on Dilaudid for pain control. Protonix for GI prophylaxis and heparin for DVT prophylaxis. His diet is being advanced. Continue on sliding scale of insulin for hyperglycemia. Patient received a lot of IV fluids postop, has positive fluid balance. He is being given a dose of spironolactone. Further recommendations to follow depending on the progress of the patient
[2020-10-20 16:41] LABS: Glucose,Whole Blood 193 mg/dL (75-99)
[2020-10-20] MEDS: carvediloL 3.125 MG TAB PO SCH (17:09)
[2020-10-20 20:29] LABS: Glucose,Whole Blood 203 mg/dL (75-99)
[2020-10-21] MEDS: HYDROmorphone 0.5 MG/0.5 ML SYRINGE IVP PRN ×2 (00:04→10:12)
[2020-10-21] MEDS: PIPERACILLIN-TAZOBACTAM 3.375 GM in SODIUM CHLORIDE 0.9% 100 ML IVPB SCH ×3 (00:05→15:40)
[2020-10-21] MEDS: HEPARIN SODIUM,PORCINE 5,000 UNIT/ML 1 ML VIAL SQ SCH ×4 (00:05→23:50)
[2020-10-21 00:22] LABS: Glucose,Whole Blood 258 mg/dL (75-99)
[2020-10-21] MEDS: INSULIN ASPART (NovoLOG) 100 UNIT/ML VIAL SQ SCH ×5 (00:28→20:26)
[2020-10-21 06:53] LABS: Glucose,Whole Blood 168 mg/dL (75-99)
[2020-10-21] MEDS: CLOPIDOGREL 75 MG TAB PO SCH (07:44)
[2020-10-21] MEDS: SPIRONOLACTONE 25 MG TAB PO SCH (07:44)
[2020-10-21] MEDS: ASPIRIN 81 MG PO SCH (07:44)
[2020-10-21] MEDS: carvediloL 3.125 MG TAB PO SCH (07:44)
[2020-10-21] MEDS: ATORVASTATIN 80 MG TAB PO SCH (07:45)
[2020-10-21] MEDS: EZETIMIBE 10 MG TAB PO SCH (07:45)
[2020-10-21] MEDS: lisinopriL 20 MG TAB PO SCH (07:45)
[2020-10-21] MEDS: PANTOPRAZOLE 40 MG/10 ML VIAL IVP SCH (07:46)
[2020-10-21 09:02] LABS: HCT 39.4 % (39.6-50.0); HGB 11.8 g/dL (13.0-17.0); MCH 27.6 pg (27.0-32.0); MCHC 29.9 g/dL (32.0-37.0); MCV 92.1 fL (80.0-97.0); Mean Platelet Volume 9.3 fL (9.5-12.2); Platelet Count 326 X 10*3/uL (140-440); RBC 4.28 X 10*6/uL (4.40-5.60); RDW 19.7 % (11.5-14.5)
[2020-10-21 09:28] LABS: African American GFR (CKD) 98.5 (60.0-200.0); Anion Gap 10.6 mmol/L (4.00-12.00); BUN/Creat Ratio 44.44 Ratio (12.00-20.00); Calcium 7.8 mg/dL (8.7-10.3); Carbon Dioxide 20.4 mmol/L (21.6-31.8); Potassium 4.3 mmol/L (3.5-5.5)
[2020-10-21 10:37] LABS: Anisocytosis (M) 2+; Basophils # (A) 0.04 X 10*3/uL (0.00-0.10); Basophils % (A) 0.3 %; Crenated RBC 3+; Eosinophils # (A) 0 X 10*3/uL (0.04-0.35); Eosinophils % (A) 0 %; Lymphocytes # (A) 0.74 X 10*3/uL (0.90-5.00); Lymphocytes % (A) 6.3 %; Monocytes # (A) 0.75 X 10*3/uL (0.20-1.00); Monocytes % (A) 6.4 %; Neutrophils % (A) 86.4 %; Polychromasia 2+
[2020-10-21 11:31] LABS: Glucose,Whole Blood 173 mg/dL (75-99)
--- NOTE | 2020-10-21 11:52 | P.PN ---
Subjective Progress Note Date: 10/21/20 70-year-old male patient who arrived from the operating room where the patient had a extensive laparotomy, lysis of adhesions and small bowel resection for ischemic bowel. The patient was found to have ischemic bowel intraoperatively. Postop, the patient was extubated and patient was brought into the ICU for further care. At this point in time the patient is on oxygen at 3 L and his pulse ox around 93%. His BP is 101/56. He has nausea upper extremity peripheral IV. No central lines inserted. He has a Bowman catheter in place. He is currently running IV fluids at the rate of 150 mL an hour of normal saline. He will be given a 2 L bolus immediately here in the ICU knowing that his urine output has been in the order of 10-20 mL an hour. The patient came into the emergency department on October 16 and the patient was complaining of abdominal pain and he also had some lactic acidosis. Note that he has vasculopathy angios diabetes mellitus hypertension and underlying dementia and he is also known to have CAD and prostate cancer for which she has associated radiation therapy. The patient had a CAT scan of the abdomen and pelvis that was done in the emergency department yesterday and the CAT scan showed no evidence of any free air. There was diffuse pneumatosis intestinalis involving the mid and the distal portion of the small bowel loops with 40 venous gas consistent with bowel ischemia. There was also associated mild to moderate grade of an ileus. For that reason, the patient was taken to the operating room today. Note that his lactic acid level was 5.4. Currently is awake. Is unresponsive. Moving all 4 extremities. The patient already received a total of 4 L of fluid boluses. He is currently on IV Zosyn. Today's evaluation of 10/18/2020, the patient is postop day #1 following exploratory laparotomy and small bowel resection for underlying bowel ischemia. The patient was extubated and recovered. He remains extubated for now. Is on oxygen at 3 L and his pulse ox is around 97%. He is not using his incentive spirometer aggressively. Hemodynamically, he is stable on no pressors. IV fluids are running in the form of normal saline at rate of 150 mL an hour. The fluid balance over the past 24 hours has been +4.8 L of the patient received several fluid boluses. His urine output was lower running between 10-20 mL an hour and the last bolus of fluid was given to him at around 8 PM yesterday. The patient's blood work from today shows a white cell count of 16 with a hemoglobin of 10. Note that the patient received also units of packed RBC yesterday. His BUN is 33 with a creatinine of 0.9. LFTs are improving including an AST of 307, ALT of 306 and the rest of the electrodes are all within normal limits. Albumin is down to 2.3. Surgical wound site over the anterior abdominal wall is dry clean and intact. The patient has no drains. Bowel sounds are quite hypoactive. Chest x-ray showing air under the right hemidiaphragm, likely posts urgical. The patient has signs of previous thoracotomy. Atelectatic changes can be seen also in the lung bases bilaterally. There is also right pleural thickening. Note that the patient's lactic is down to 1.2 acute on insulin drip last night and the patient was placed on insulin drip yesterday upon my request and the blood sugars under tighter control and current insulin drip is off and the patient is on a sliding scale coverage. 10/19/2020 the patient is being seen for a follow-up. The patient is postop day #2 and the patient underwent laparotomy and small bowel resection for bowel is chemia. As mentioned, the patient was extubated without any major difficulties. This morning he is on room air oxygen. He is using incentive spirometer and he remains hemodynamically stable. No reported abdominal pain for now. The patient has not passed any flatus yet. No major abdominal distention. No nausea. No vomiting. He remains on IV Zosyn for now. White cell count is at 17 which is essentially compatible to yesterday. The patient has no symptoms to metabolic acidosis. Serum bicarb is 25. His creatinine is at 1.1. Surgical wound site is dry clean and intact. No other significant events otherwise for now. He is receiving Dilaudid for pain control and he is also on heparin subcu for DVT prophylaxis. Blood sugars are also under good control and the patient is receiving sliding scale coverage insulin drip has been discontinued. No other significant events overnight. He is awake and alert and is following commands. On today's evaluation of the 2020 the patient is currently on a medical floor and was transferred out of the intensive care unit. His postop day #3. He is doing well. His chest x-ray from today shows some interstitial edema. There are some air under the right hemidiaphragm. There is also cardiomegaly. There may be some interstitial edema and fluid overload. His fluid balance has been positive more than 6 or 7 L over the past 48 hours. He is currently on normal saline at the rate of 100 mL an hour. He still nothing by mouth. We are going to proceed with some clear liquid diet today. He remains on IV Zosyn. Surgical wound site is dry clean and intact. No abdominal pain. No abdominal tenderness. White cell count today is at 16.9. Was attempted 0.8. General surgeries on the case. He also has some increased swelling in left upper extremity and the patient is going to have a ultrasound Doppler to rule out DVT. 10/21/2020, the patient is postop day #4. He is still on a medical floor. Doing well. On room air oxygen. Surgical wound site is dry clean and intact. Is using incentive spirometer. Is taking clear liquids. Nevertheless, I see him more lethargic compared to yesterday. It is probably that the patient has taken a dose of Avelox. That made him more lethargic. In general, he is much more interactive than what he is right now. His blood work today showing a white cell count of 11 and hemoglobin of 11.8 and platelet count of 326. Serum bicarb is at 20 with a BUN of 48 and creatinine of 0.9. He is receiving IV fluids with normal saline at the rate of 50 mL an hour. Objective - Vital Signs Vital signs: Vital Signs Temp 97.3 F L 10/21/20 08:06 Pulse 92 10/21/20 08:06 Resp 16 10/21/20 08:06 BP 126/76 10/21/20 08:06 Pulse Ox 97 10/21/20 00:52 Intake & Output 10/20/20 10/21/20 10/21/20 18:59 06:59 18:59 Output Total 1949 300 Balance -1949 - Weight 80 kg Output: Urine 1949 300 Other: Voiding Method Indwelling Catheter Indwelling Catheter Indwelling Catheter - Exam Gen. appearance the patient is calm and comfortable likely distress, room air oxygen Head exam was generally normal. There was no scleral icterus or corneal arcus. Mucous membranes were moist. Neck was supple and without jugular venous distension, thyromegaly, or carotid bruits. Carotids were easily palpable bilaterally. There was no adenopathy. Lungs sounds are diminished yet the BS diminished symmetrical bilaterally. Cardiac exam revealed the PMI to be normally situated and sized. The rhythm was regular and no extrasystoles were noted during several minutes of auscultation. The first and second heart sounds were normal and physiologic splitting of the second heart sound was noted. There were grade 3/6 left precordial murmurs, rubs, clicks, or gallops. Abdomen is soft. Surgical wound site is dry clean and intact. No direct tenderness. No rebound tenderness. No guarding. The patient's has a clean incision sites. No organomegaly. No bowel sounds. The patient is not passing any flatus yet. Examination of the extremities revealed easily palpable radial, femoral and pedal pulses. There was no cyanosis, clubbing or edema. Examination of the skin revealed no evidence of significant rashes, suspicious appearing nevi or other concerning lesions. Neurologically, the patient is awake and alert and the patient does not have any focal neurological deficit. Cranial nerves are essentially intact. Nevertheless, the patient is quite lethargic and somnolent but arousable. He is still following commands and answering questions appropriately. - Labs CBC & Chem 7: 10/21/20 06:12 10/21/20 06:12 Labs: Abnormal Lab Results - Last 24 Hours (Table) 10/20/20 10/20/20 10/21/20 Range/Units 16:39 20:27 00:18 WBC (4.50-10.00) X 10*3/uL RBC (4.40-5.60) X 10*6/uL Hgb (13.0-17.0) g/dL Hct (39.6-50.0) % MCHC (32.0-37.0) g/dL RDW (11.5-14.5) % MPV (9.5-12.2) fL Absolute Nucleated RBC (0.00-0.00) X 10*3/uL Immature Gran # (0.00-0.04) X 10*3/uL Neutrophils # (1.80-7.70) X 10*3/uL Lymphocytes # (0.90-5.00) X 10*3/uL Eosinophils # (0.04-0.35) X 10*3/uL NRBC/100 WBC Diff (0.0-0.0) /100 WBCS Carbon Dioxide (21.6-31.8) mmol/L BUN (9.0-27.0) mg/dL BUN/Creatinine Ratio (12.00-20.00) Ratio Glucose (70-110) mg/dL POC Glucose (mg/dL) 193 H 203 H 258 H (75-99) mg/dL Calcium (8.7-10.3) mg/dL 10/21/20 10/21/20 10/21/20 Range/Units 06:12 06:12 06:51 WBC 11.70 H (4.50-10.00) X 10*3/uL RBC 4.28 L (4.40-5.60) X 10*6/uL Hgb 11.8 L (13.0-17.0) g/dL Hct 39.4 L (39.6-50.0) % MCHC 29.9 L (32.0-37.0) g/dL RDW 19.7 H (11.5-14.5) % MPV 9.3 L (9.5-12.2) fL Absolute Nucleated RBC 0.03 H (0.00-0.00) X 10*3/uL Immature Gran # 0.07 H (0.00-0.04) X 10*3/uL Neutrophils # 10.10 H (1.80-7.70) X 10*3/uL Lymphocytes # 0.74 L (0.90-5.00) X 10*3/uL Eosinophils # 0 L (0.04-0.35) X 10*3/uL NRBC/100 WBC Diff 0.3 H (0.0-0.0) /100 WBCS Carbon Dioxide 20.4 L (21.6-31.8) mmol/L BUN 40.0 H (9.0-27.0) mg/dL BUN/Creatinine Ratio 44.44 H (12.00-20.00) Ratio Glucose 202 H (70-110) mg/dL POC Glucose (mg/dL) 168 H (75-99) mg/dL Calcium 7.8 L (8.7-10.3) mg/dL 03/27/21 Range/Units 11:29 WBC (4.50-10.00) X 10*3/uL RBC (4.40-5.60) X 10*6/uL Hgb (13.0-17.0) g/dL Hct (39.6-50.0) % MCHC (32.0-37.0) g/dL RDW (11.5-14.5) % MPV (9.5-12.2) fL Absolute Nucleated RBC (0.00-0.00) X 10*3/uL Immature Gran # (0.00-0.04) X 10*3/uL Neutrophils # (1.80-7.70) X 10*3/uL Lymphocytes # (0.90-5.00) X 10*3/uL Eosinophils # (0.04-0.35) X 10*3/uL NRBC/100 WBC Diff (0.0-0.0) /100 WBCS Carbon Dioxide (21.6-31.8) mmol/L BUN (9.0-27.0) mg/dL BUN/Creatinine Ratio (12.00-20.00) Ratio Glucose (70-110) mg/dL POC Glucose (mg/dL) 173 H (75-99) mg/dL Calcium (8.7-10.3) mg/dL Assessment and Plan Plan: 1 Acute ischemic small bowel with pneumatosis intestinalis, the patient is post that the laparotomy and small bowel resection and the patient is postop day #4 The patient is lethargic and somnolent under the effect of dilaudid. We will hold giving him any pain medications for now. Neurologic exam is nonfocal. Is moving all 4 extremities. His blood work is stable. Would like to monitor him very closely. 2 hypotension secondary to above, consider underlying sepsis of an abdominal source secondary to bowel ischemia, recovered 3 acute lactic acidosis secondary to above, Lactic acid level is down to 1.2 4 acute leukocytosis , White count is 11, the white cell count is improved 5 coronary artery disease with previous bypass surgery 6 diabetes mellitus , BS is being covered with a sliding scale insulin 7 peripheral vascular disease with previous intervention and stenting of the lower extremities 8 hypertension 9 hyperlipidemia 10 hypothyroidism 11 prostate cancer with previous radiation therapy 12 left upper extremity swelling with a basilic vein thrombosis, superficial vein. He did have several IV lines in that left upper extremity. Plan Monitor mental status Avoid giving any narcotics for now Continue NS at the rate of 50 cc an hour Clear liquid diet Continue IV Zosyn Heparin subcu for DVT prophylaxis 5000 every 8 IV Protonix Incentive spirometer Sitting up on a chair We'll continue to follow
--- NOTE | 2020-10-21 11:54 | P.PN ---
Subjective Progress Note Date: 10/21/20 the patient is a 70-year-old male who follows in our office with Dr. Hubbard. We were recently consulted as the patient has a significant cardiac history, however he was admitted to the hospital for ischemic bowel disease. He underwent exploratory laparotomy with lysis of adhesions and small bowel resection on 10/17/20. The patient's cardiac medications were resumed yesterday. The patient has been tolerating them well. His only complaint this morning is that his abdomen hurts with movement. No chest pain or chest pressure. No shortness of breath. No palpitations, dizziness, or lightheadedness, however the patient has not been up to the chair as of yet. GENERAL: Well-appearing, well-nourished and in no acute distress. NECK: Supple without JVD or thyromegaly. LUNGS: Breath sounds clear to auscultation bilaterally. Respiration equal and unlabored. No wheezes, rales or rhonchi. HEART: Regular rate and rhythm. Systolic murmur. No rubs or gallops. S1 and S2 heard. EXTREMITIES: Normal range of motion, mild generalized edema. No clubbing or cyanosis. Peripheral pulses intact and strong. ABDOMEN: Surgical dressing in place; clean, dry, and intact VITALS: Blood pressure 126/76, respiratory rate 16, pulse rate 92, SpO2 97% on room air TELEMETRY: Sinus rhythm with heart rate in the 80s to 90s LABS: WBC 11.7, hemoglobin 11.8, hematocrit 39.4, platelet 326, sodium 138, potassium 4.3, BUN 40, creatinine 0.9 IMPRESSION: Acute ischemic bowel, status post exploratory lap with small bowel resection Hypotension, resolved Leukocytosis, improving Coronary artery disease, stable Ischemic cardiomyopathy, known EF of 20-25% PLAN: Continue current medication regimen We will maximize patient's heart failure medications as tolerated by blood pressure Recommend ambulation to assess for orthostatic intolerance Continue to recommend upon clinical course The patient has been seen and evaluated. Plan of care has been reviewed and agreed upon by Dr Brown. Objective - Vital Signs Vital signs: Vital Signs Temp 97.3 F L 10/21/20 08:06 Pulse 92 10/21/20 08:06 Resp 16 10/21/20 08:06 BP 126/76 10/21/20 08:06 Pulse Ox 97 03/27/21 00:52 Intake & Output 10/20/20 10/21/20 10/21/20 18:59 06:59 18:59 Output Total 1950 300 Balance -1950 -300 Weight 80 kg Output: Urine 1950 300 Other: Voiding Method Indwelling Catheter Indwelling Catheter Indwelling Catheter - Labs CBC & Chem 7: 10/21/20 06:12 10/21/20 06:12 Labs: Abnormal Lab Results - Last 24 Hours (Table) 10/20/20 10/20/20 10/21/20 Range/Units 16:39 20:27 00:18 WBC (4.50-10.00) X 10*3/uL RBC (4.40-5.60) X 10*6/uL Hgb (13.0-17.0) g/dL Hct (39.6-50.0) % MCHC (32.0-37.0) g/dL RDW (11.5-14.5) % MPV (9.5-12.2) fL Absolute Nucleated RBC (0.00-0.00) X 10*3/uL Immature Gran # (0.00-0.04) X 10*3/uL Neutrophils # (1.80-7.70) X 10*3/uL Lymphocytes # (0.90-5.00) X 10*3/uL Eosinophils # (0.04-0.35) X 10*3/uL NRBC/100 WBC Diff (0.0-0.0) /100 WBCS Carbon Dioxide (21.6-31.8) mmol/L BUN (9.0-27.0) mg/dL BUN/Creatinine Ratio (12.00-20.00) Ratio Glucose (70-110) mg/dL POC Glucose (mg/dL) 193 H 203 H 258 H (75-99) mg/dL Calcium (8.7-10.3) mg/dL 10/21/20 10/21/20 10/21/20 Range/Units 06:12 06:12 06:51 WBC 11.70 H (4.50-10.00) X 10*3/uL RBC 4.28 L (4.40-5.60) X 10*6/uL Hgb 11.8 L (13.0-17.0) g/dL Hct 39.4 L (39.6-50.0) % MCHC 29.9 L (32.0-37.0) g/dL RDW 19.7 H (11.5-14.5) % MPV 9.3 L (9.5-12.2) fL Absolute Nucleated RBC 0.03 H (0.00-0.00) X 10*3/uL Immature Gran # 0.07 H (0.00-0.04) X 10*3/uL Neutrophils # 10.10 H (1.80-7.70) X 10*3/uL Lymphocytes # 0.74 L (0.90-5.00) X 10*3/uL Eosinophils # 0 L (0.04-0.35) X 10*3/uL NRBC/100 WBC Diff 0.3 H (0.0-0.0) /100 WBCS Carbon Dioxide 20.4 L (21.6-31.8) mmol/L BUN 40.0 H (9.0-27.0) mg/dL BUN/Creatinine Ratio 44.44 H (12.00-20.00) Ratio Glucose 202 H (70-110) mg/dL POC Glucose (mg/dL) 168 H (75-99) mg/dL Calcium 7.8 L (8.7-10.3) mg/dL 10/21/20 Range/Units 11:29 WBC (4.50-10.00) X 10*3/uL RBC (4.40-5.60) X 10*6/uL Hgb (13.0-17.0) g/dL Hct (39.6-50.0) % MCHC (32.0-37.0) g/dL RDW (11.5-14.5) % MPV (9.5-12.2) fL Absolute Nucleated RBC (0.00-0.00) X 10*3/uL Immature Gran # (0.00-0.04) X 10*3/uL Neutrophils # (1.80-7.70) X 10*3/uL Lymphocytes # (0.90-5.00) X 10*3/uL Eosinophils # (0.04-0.35) X 10*3/uL NRBC/100 WBC Diff (0.0-0.0) /100 WBCS Carbon Dioxide (21.6-31.8) mmol/L BUN (9.0-27.0) mg/dL BUN/Creatinine Ratio (12.00-20.00) Ratio Glucose (70-110) mg/dL POC Glucose (mg/dL) 173 H (75-99) mg/dL Calcium (8.7-10.3) mg/dL
[2020-10-21] MEDS ORDERED: SODIUM CHLORIDE 0.9% 1,000 ML IV ONE ×2 (13:33→15:05)
[2020-10-21 13:39] LABS: ABG Base Excess -6.2 mmol/L; ABG HCO3 19 mmol/L (21-25); ABG Oxygen Saturation 95.7 % (94-97); ABG PCO2 30 mmHg (35-45); ABG PO2 80 mmHg (83-108); ABG TCO2 20 mmol/L (19-24); Allen Test Performed? Yes
[2020-10-21] MEDS ORDERED: ASPIRIN 325 MG TAB PO STA (14:15)
--- NOTE | 2020-10-21 14:17 | P.PN ---
Progress Note - Text Progress Note Date: 10/21/20 I responded to a rapid response team called by nursing staff with concerns about hypotension and altered mental status. When I arrived to the room, patient was laying in bed. Nursing staff informed me that they just transferred him out from the chair to the bed. Systolic blood pressure in the 70s. Patient is lethargic but easily arousable. He is afebrile. Heart rate in the 80s. He appeared more confused than earlier and significantly confused compared to his baseline. He did not recognize his son at bedside. Lungs are clear to auscultation bilaterally. Abdomen is soft with moderate to severe tenderness to palpation. Surgical incision site with no drainage noted. He is postoperative day #3 status post partial bowel resection secondary to ischemic bowel. He is on antibiotic with Zosyn. I advised to give the patient 1 L bolus of normal saline. I ordered blood gas to rule out CO2 narcosis and CO2 level was within acceptable range. Attending physician updated by nursing staff. Computed tomography scan of the head will be ordered for further evaluation. Blood pressure improved with IV fluid bolus.
[2020-10-21 14:18] LABS: Anisocytosis Slight; HCT 35.8 % (39.0-53.0); HGB 11.6 gm/dL (13.0-17.5); Hypochromasia Slight; MCH 28.5 pg (25.0-35.0); MCHC 32.4 g/dL (31.0-37.0); MCV 87.8 fL (80.0-100.0); Platelet Count 323 k/uL (150-450); Poikilocytosis Slight; RBC 4.08 m/uL (4.30-5.90); RDW 19.2 % (11.5-15.5); WBC 19.3 k/uL (3.8-10.6)
--- NOTE | 2020-10-21 14:36 | P.PN ---
Subjective Progress Note Date: 10/21/20 CHIEF COMPLAINT: Ischemic bowel HISTORY OF PRESENT ILLNESS: The patient is a 70-year-old male status post small bowel resection for ischemic bowel and small bowel obstruction, 10/17/2020. Per nursing, patient had an acute event of disorientation and abdominal pain. An A team was called. His son is at bedside. Patient was also being evaluated by medicine team. He is not following commands. ROS: No reports of nausea and vomiting. No bowel movements. No fevers or chills. No new chest pain. No productive sputum PHYSICAL EXAM: VITAL SIGNS: Reviewed CONSTITUTIONAL: Well developed and in no acute distress. EYES: Conjuctivae without sclera icterus. Extraocular movements grossly intact. HEAD, EARS, NOSE, THROAT: Moist buccal mucosa. Head is atraumatic, normocephalic. Hears conversational speech. No nasal drainage. NECK: Supple. No thyroidomegaly. RESPIRATORY: Non-labored respirations and equal bilateral excursions. CARDIOVASCULAR: 2+ radial pulses. Regular rate. Regular rhythm. ABDOMEN: Incisions intact. Soft. No peritonitis. MUSCULOSKELETAL: No gross deformity of the lower extremities noted. No clubbing. No cyanosis. SKIN: Good skin turgor. Well perfused. NEUROLOGIC: Cranial nerves II through XII grossly intact. No focal or lateralizing signs. PSYCH: Alert to self. CLINICAL LABS: White blood cell count down from 16,000 to over 11,000. Hemoglobin elevated at 10.8-11.8 with anemia. Creatinine 0.9. Blood sugars over 250 with hyperglycemia ASSESSMENT: 1. Acute ischemic bowel status post resection 2. Anemia 3. Insulin-dependent diabetes type 2 with hyperglycemia PLAN: 1. Aspirin 325 mg x 1 dose prescribed 2. Stat CT head being obtained. 3. Stat CT of the abdomen and pelvis ordered. Objective - Vital Signs Vital signs: Vital Signs Temp 97.3 F L 10/21/20 08:06 Pulse 92 10/21/20 08:06 Resp 16 10/21/20 08:06 BP 126/76 10/21/20 08:06 Pulse Ox 97 10/21/20 00:52 Intake & Output 10/20/20 10/21/20 10/21/20 18:59 06:59 18:59 Output Total 1950 300 Balance -1950 -300 Weight 80 kg Output: Urine 1949 300 Other: Voiding Method Indwelling Catheter Indwelling Catheter Indwelling Catheter - Labs CBC & Chem 7: 10/21/20 14:10 10/21/20 06:12 Labs: Abnormal Lab Results - Last 24 Hours (Table) 10/20/20 10/20/20 10/21/20 Range/Units 16:39 20:27 00:18 WBC (4.50-10.00) X 10*3/uL RBC (4.40-5.60) X 10*6/uL Hgb (13.0-17.0) g/dL Hct (39.6-50.0) % MCHC (32.0-37.0) g/dL RDW (11.5-14.5) % MPV (9.5-12.2) fL Absolute Nucleated RBC (0.00-0.00) X 10*3/uL Immature Gran # (0.00-0.04) X 10*3/uL Neutrophils # (1.80-7.70) X 10*3/uL Lymphocytes # (0.90-5.00) X 10*3/uL Eosinophils # (0.04-0.35) X 10*3/uL NRBC/100 WBC Diff (0.0-0.0) /100 WBCS Carbon Dioxide (21.6-31.8) mmol/L BUN (9.0-27.0) mg/dL BUN/Creatinine Ratio (12.00-20.00) Ratio Glucose (70-110) mg/dL POC Glucose (mg/dL) 193 H 203 H 258 H (75-99) mg/dL Calcium (8.7-10.3) mg/dL 10/21/20 10/21/20 10/21/20 Range/Units 06:12 06:12 06:51 WBC 11.70 H (4.50-10.00) X 10*3/uL RBC 4.28 L (4.40-5.60) X 10*6/uL Hgb 11.8 L (13.0-17.0) g/dL Hct 39.4 L (39.6-50.0) % MCHC 29.9 L (32.0-37.0) g/dL RDW 19.7 H (11.5-14.5) % MPV 9.3 L (9.5-12.2) fL Absolute Nucleated RBC 0.03 H (0.00-0.00) X 10*3/uL Immature Gran # 0.07 H (0.00-0.04) X 10*3/uL Neutrophils # 10.10 H (1.80-7.70) X 10*3/uL Lymphocytes # 0.74 L (0.90-5.00) X 10*3/uL Eosinophils # 0 L (0.04-0.35) X 10*3/uL NRBC/100 WBC Diff 0.3 H (0.0-0.0) /100 WBCS Carbon Dioxide 20.4 L (21.6-31.8) mmol/L BUN 40.0 H (9.0-27.0) mg/dL BUN/Creatinine Ratio 44.44 H (12.00-20.00) Ratio Glucose 202 H (70-110) mg/dL POC Glucose (mg/dL) 168 H (75-99) mg/dL Calcium 7.8 L (8.7-10.3) mg/dL 10/21/20 Range/Units 11:29 WBC (4.50-10.00) X 10*3/uL RBC (4.40-5.60) X 10*6/uL Hgb (13.0-17.0) g/dL Hct (39.6-50.0) % MCHC (32.0-37.0) g/dL RDW (11.5-14.5) % MPV (9.5-12.2) fL Absolute Nucleated RBC (0.00-0.00) X 10*3/uL Immature Gran # (0.00-0.04) X 10*3/uL Neutrophils # (1.80-7.70) X 10*3/uL Lymphocytes # (0.90-5.00) X 10*3/uL Eosinophils # (0.04-0.35) X 10*3/uL NRBC/100 WBC Diff (0.0-0.0) /100 WBCS Carbon Dioxide (21.6-31.8) mmol/L BUN (9.0-27.0) mg/dL BUN/Creatinine Ratio (12.00-20.00) Ratio Glucose (70-110) mg/dL POC Glucose (mg/dL) 173 H (75-99) mg/dL Calcium (8.7-10.3) mg/dL
--- NOTE | 2020-10-21 14:46 | CT ---
EXAM: CT brain wo con CLINICAL HISTORY: Altered mental status. COMPARISON: None TECHNIQUE: Contiguous axial noncontrast images of the brain were obtained. Coronal and sagittal refor mats were generated and reviewed. Automated dose control was used for this exam. FINDINGS: There is no evidence for intracranial hemorrhage, mass effect, midline shift or acute large vessel te rritory infarct. There is mild white matter disease and parenchymal volume loss. Ventricular size and configuration is within normal limits for degree of parenchymal volume. The paranasal sinuses are clear. The mastoid air cells are clear. No evidence for calvarial fracture. IMPRESSION: No acute intracranial abnormality.
--- NOTE | 2020-10-21 15:04 | P.PN ---
Progress Note - Text Progress Note Date: 10/21/20 I personally reviewed his CT head without acute hemorrhagic events identified. CBC shows increased in WBC from 11,000 to 19,000 and increase lactic acid. I personally reviewed his CT of the abdomen and pelvis with presence of pneumoperitoneum. This is my independent interpretation. I reviewed his past chest x-rays from 10/17, 10/18, 10/19 and 10/20 reports with persistence of pneumoperitoneum and chronic in nature. Patient started on sepsis protocol with additional liter normal saline ordered. Patient has global ischemic cardiomyopathy 25% ejection fraction with high surgical risk for morbidity for any future surgery. Pending response from index surgeon.
[2020-10-21 15:28] LABS: ALT 420 U/L (4-49); AST 468 U/L (17-59); African American GFR (CKD) >90 (>60 ml/min/1.73 sqM); Albumin 1.8 g/dL (3.5-5.0); Albumin/Globulin Ratio 0.8; Alkaline Phosphatase 71 U/L (38-126); Anion Gap 8 mmol/L; Blood Urea Nitrogen 40 mg/dL (9-20); Calcium 7.3 mg/dL (8.4-10.2); Carbon Dioxide 21 mmol/L (22-30); Chloride 106 mmol/L (98-107); Globulin 2.3 g/dL; Glucose 151 mg/dL (74-99); Magnesium 1.8 mg/dL (1.6-2.3); Non-African American GFR(CKD) >90 (>60 ml/min/1.73 sqM); Phosphorus 3.5 mg/dL (2.5-4.5); Sodium 135 mmol/L (137-145); Total Bilirubin 1.1 mg/dL (0.2-1.3); Total Protein 4.1 g/dL (6.3-8.2)
[2020-10-21 15:37] LABS: Potassium 4.7 mmol/L (3.5-5.1)
--- NOTE | 2020-10-21 15:37 | CT ---
EXAMINATION TYPE: CT abdomen pelvis wo con DATE OF EXAM: 10/21/2020 COMPARISON: 10/16/2020. HISTORY: Abdominal pain. CT DLP: 907.7 mGycm Automated exposure control for dose reduction was used. TECHNIQUE: Helical acquisition of images was performed from the lung bases through the pelvis. FINDINGS: The visualized lung bases demonstrate trace pleural effusions with mild atelectasis. There is interval midline laparotomy surgical changes. There is moderate pneumoperitoneum. There is r edemonstration of diffuse moderate intestinalis pneumatosis involving the visualized lower lobes. The re is diffuse mild to moderate dilatation of the bowel loops. There is small pelvic free fluid. There is decreased paravenous gas with moderate residual. Stable atrophic pancreas. Otherwise no acut e abnormality of the spleen, kidneys and adrenal glands. Atherosclerotic disease extends seen. The ur inary bladder is decompressed by Bowman catheter. Anasarca is seen. No acute osseous abnormality. IMPRESSION: INTERVAL LAPAROTOMY WITH MODERATE FREE AIR, WHICH MAY REPRESENT POSTSURGICAL CHANGE. PERSISTENT MODERATE INTESTINALIS PNEUMATOSIS. MILD TO MODERATE DILATATION OF BOWEL LOOPS, SUGGESTIVE OF LOW TO MODERATE GRADE ILEUS. DECREASED PORTAL VENOUS GAS. TRACE PLEURAL EFFUSIONS.
[2020-10-21] MEDS: SODIUM CHLORIDE 0.9% 1,000 ML IV SCH (15:45)
--- NOTE | 2020-10-21 16:08 | P.PN ---
Subjective Progress Note Date: 10/21/20 Principal diagnosis: Ischemic bowel s/p resection Mr. Joiner is a 70-year-old male with a past medical history of coronary artery disease, dementia, diverticulitis, DVT, hypertension, hyperlipidemia, thyroid disorder, prostate cancer coming into the hospital yesterday with a chief complaint of abdominal pain. Patient was having pain mostly in the center of his abdomen, which was sharp in nature and 10 out of 10 in intensity. He also had one episode of vomiting along with diarrhea and stools that are dark in color. Patient is on aspirin and Plavix at home. In the ER patient had a CAT scan of the abdomen and pelvis showing diffuse pneumatosis intestinalis involving mid to distal small bowel loops with portal venous gas consistent with bowel ischemia. There is associated moderate grade years. So the patient was taken to the ER and had exploratory laparotomy done earlier this morning. Intraoperatively patient required pressor support to maintain his blood pressur e. Postop patient was extubated and transferred to the ICU for further care. Postop patient had decreased urine output, so currently receiving his second liter of bolus in the ICU. On 10/18/2020 - patient was seen and examined in the ICU at bedside. Patient's at the bedside. As per discussion with the , patient has been confused thinks that there are people in the hallways collecting funds for his disability. She mentions that patient has history of dementia. Patient complains of abdominal soreness. He denies having any chest pain or palpitations. He has a Bowman's catheter in place with good urinary output. On reviewing his vitals T-max of 98.6, heart rate in 90s to 100s, blood pressure 110s/50s to 60s, saturating at 94% on room air. He is currently getting IV fluids, insulin drip and Zosyn. On reviewing the labs white count of 16.6, hemoglobin 10, platelets 258. INR of 1.2. Sodium 138, potassium 4.1, chloride 1 as is, bicarbonate, BUN 33, creatinine 0.95. Hemoglobin A1c 7.7. AST 307, ALT 306. On 10/19/2020 - patient was seen and examined at the bedside. Patient has been transferred to the regular medical floor since morning. Patient states that he's been having swelling of his left upper extremity. On talking with nursing staff, patient had 2 IVs that have infiltrate in the left cubital fossa and also he had a blood pressure cuff titrate to his upper arm in the ICU. Patient denies having any pain in his left upper extremity. Patient denies having any chest pain or palpitations. No cough or difficulty in breathing. He complains of abdominal soreness. On reviewing the vitals, temperature 97.3, heart rate 82, respiratory rate 14, blood pressure 135/76, saturating at 97% on room air. On reviewing his labs white count of 17.1, hemoglobin 11, platelets 263. Sodium 137, potassium 5.0, chloride 104, bicarbonate 25, BUN 45, creatinine 1.15. On 10/20/2020 - patient was seen and examined at the bedside. Patient states that he is taking liquid diet and tolerating it okay. But he states that he has loss of appetite. Patient states that his left upper extremity swelling is better compared to yesterday. He denies having any pain. Patient denies having any chest pain or palpitations. No cough or difficulty breathing. Complains of abdominal soreness. On reviewing the vitals, T-max of 98.2, heart rate 70, respiratory rate 18, blood pressure 1 10 x 63, saturating at 93% on room air. On reviewing his labs white count of 16.9, hemoglobin 10.8, platelets 269. Sodium 140, potassium 4.3, chloride 109, bicarb 16, BUN 50, creatinine 1.0. On 10/21/2020 - in the afternoon, nursing staff found that the patient had altered mental status changes and was hypotensive. At restaurants team was alerted and the patient was found to be lethargic but arousable. Patient had ABGs done showing pH of 7.4, pCO2 30, pO2 80 and bicarb of 19. Patient's blood pressure was lowered 100 binder 69 and his temperature was 97.3. Patient opened his eyes on calling his name. He was very tender to touch in the left lower abdominal quadrant. He was able to say his name. His extremities were cold to touch. He had CBC and BMP drawn. CBC showing white count of 19.3, hemoglobin stable at 11.6 and platelets 323. Sodium 135, potassium 4.7, chloride 106, bicarbonate 29. BUN 40 and creatinine of 0.79. Lactic acid 3.8. AST 468, ALT 428. Patient had a CAT scan of the head and CAT scan of the abdomen and pelvis done. CT of the head no acute intracranial abnormality. CT of the abdomen showing interval laparotomy with moderate 58 and persistent moderate intestinalis pneumatosis. Active Medications Aspirin (Aspirin 81 Mg) 81 mg PO DAILY [facility] Last Admin: 10/21/20 07:44 Dose: 81 mg Documented by: Atorvastatin Calcium (Atorvastatin 80 Mg Tab) 80 mg PO DAILY [facility] Last Admin: 10/21/20 07:45 Dose: 80 mg Documented by: Clopidogrel Bisulfate (Clopidogrel 75 Mg Tab) 75 mg PO DAILY [facility] Last Admin: 10/21/20 07:44 Dose: 75 mg Documented by: Ezetimibe (Ezetimibe 10 Mg Tab) 10 mg PO DAILY [facility] Last Admin: 10/21/20 07:45 Dose: 10 mg Documented by: Heparin Sodium (Porcine) (Heparin Sodium,Porcine 5,000 Unit/Ml 1 Ml Vial) 5,000 unit SQ Q8HR [facility] Last Admin: 10/21/20 15:44 Dose: 5,000 unit Documented by: Hydromorphone HCl (Hydromorphone 0.5 Mg/0.5 Ml Syringe) 0.5 mg IVP Q3HR PRN PRN Reason: Moderate to Severe Pain Last Admin: 10/21/20 10:12 Dose: 0.5 mg Documented by: Piperacillin Sod/Tazobactam (Sod 3.375 gm/ Sodium Chloride) 100 mls @ 25 mls/hr IVPB Q8HR [facility] Last Admin: 10/21/20 15:40 Dose: 25 mls/hr Documented by: Sodium Chloride (Saline 0.9%) 1,000 mls @ 50 mls/hr IV .Q20H [facility] Last Admin: 10/21/20 15:45 Dose: 50 mls/hr Documented by: Sodium Chloride (Saline 0.9%) 1,000 mls @ 999 mls/hr IV .Q1H1M ONE Stop: 10/21/20 16:05 Last Admin: 10/21/20 15:14 Dose: 999 mls/hr Documented by: Insulin Aspart (Insulin Aspart (Novolog) 100 Unit/Ml Vial) 0 unit SQ ACHS [facility]; Protocol Last Admin: 10/21/20 12:04 Dose: 2 unit Documented by: Naloxone HCl (Naloxone 0.4 Mg/Ml 1 Ml Vial) 0.2 mg IV Q2M PRN PRN Reason: Opioid Reversal Naloxone HCl (Naloxone 0.4 Mg/Ml 1 Ml Vial) 0.2 mg IV Q2M PRN PRN Reason: Opioid Reversal Ondansetron HCl (Ondansetron 4 Mg/2 Ml Vial) 4 mg IVP Q8HR PRN PRN Reason: Nausea And Vomiting Ondansetron HCl (Ondansetron 4 Mg/2 Ml Vial) 4 mg IVP Q6HR PRN PRN Reason: Nausea And Vomiting Pantoprazole Sodium (Pantoprazole 40 Mg/10 Ml Vial) 40 mg IVP DAILY [facility] Last Admin: 10/21/20 07:46 Dose: 40 mg Documented by: Spironolactone (Spironolactone 25 Mg Tab) 12.5 mg PO DAILY [facility] Last Admin: 10/21/20 07:44 Dose: 12.5 mg Documented by: Objective - Vital Signs Vital signs: Vital Signs Temp 97.3 F L 10/21/20 11:53 Pulse 99 10/21/20 11:53 Resp 17 10/21/20 11:53 BP 101/69 10/21/20 11:53 Pulse Ox 94 L 10/21/20 11:53 Intake & Output 10/20/20 10/21/20 10/21/20 18:59 06:59 18:59 Output Total 1950 300 Balance -1950 -300 Weight 80 kg Output: Urine 1950 300 Other: Voiding Method Indwelling Catheter Indwelling Catheter Indwelling Catheter - Exam PHYSICAL EXAMINATION: GENERAL: The patient is alert and oriented x 1-2 HEENT: Pupils are round and equally reacting to light. EOMI. No scleral icterus. Mild conjunctival pallor. CARDIOVASCULAR: S1 and S2 present. PULMONARY: Chest is clear to auscultation, no wheezing or crackles. ABDOMEN: Surgical scar in place covered with dressing. Dressing appears clean with no bleeding. Hypoactive bowel sounds. Positive for tenderness in the left lower abdominal quadrant. MUSCULOSKELETAL: No joint swelling or deformity. EXTREMITIES: Extremities are cold to touch. NEUROLOGICAL: Patient able to move all 4 extremities - Labs CBC & Chem 7: 10/22/20 08:10 10/22/20 08:10 Labs: Abnormal Lab Results - Last 24 Hours (Table) 10/20/20 10/20/20 10/21/20 Range/Units 16:39 20:27 00:18 WBC (4.50-10.00) X 10*3/uL RBC (4.40-5.60) X 10*6/uL Hgb (13.0-17.0) g/dL Hct (39.6-50.0) % MCHC (32.0-37.0) g/dL RDW (11.5-14.5) % MPV (9.5-12.2) fL Absolute Nucleated RBC (0.00-0.00) X 10*3/uL Immature Gran # (0.00-0.04) X 10*3/uL Neutrophils # (1.80-7.70) X 10*3/uL Lymphocytes # (0.90-5.00) X 10*3/uL Eosinophils # (0.04-0.35) X 10*3/uL NRBC/100 WBC Diff (0.0-0.0) /100 WBCS ABG pCO2 (35-45) mmHg ABG pO2 (83-108) mmHg ABG HCO3 (21-25) mmol/L Carbon Dioxide (21.6-31.8) mmol/L BUN (9.0-27.0) mg/dL BUN/Creatinine Ratio (12.00-20.00) Ratio Glucose (70-110) mg/dL POC Glucose (mg/dL) 193 H 203 H 258 H (75-99) mg/dL Calcium (8.7-10.3) mg/dL 10/21/20 10/21/20 10/21/20 Range/Units 06:12 06:12 06:51 WBC 11.70 H (4.50-10.00) X 10*3/uL RBC 4.28 L (4.40-5.60) X 10*6/uL Hgb 11.8 L (13.0-17.0) g/dL Hct 39.4 L (39.6-50.0) % MCHC 29.9 L (32.0-37.0) g/dL RDW 19.7 H (11.5-14.5) % MPV 9.3 L (9.5-12.2) fL Absolute Nucleated RBC 0.03 H (0.00-0.00) X 10*3/uL Immature Gran # 0.07 H (0.00-0.04) X 10*3/uL Neutrophils # 10.10 H (1.80-7.70) X 10*3/uL Lymphocytes # 0.74 L (0.90-5.00) X 10*3/uL Eosinophils # 0 L (0.04-0.35) X 10*3/uL NRBC/100 WBC Diff 0.3 H (0.0-0.0) /100 WBCS ABG pCO2 (35-45) mmHg ABG pO2 (83-108) mmHg ABG HCO3 (21-25) mmol/L Carbon Dioxide 20.4 L (21.6-31.8) mmol/L BUN 40.0 H (9.0-27.0) mg/dL BUN/Creatinine Ratio 44.44 H (12.00-20.00) Ratio Glucose 202 H (70-110) mg/dL POC Glucose (mg/dL) 168 H (75-99) mg/dL Calcium 7.8 L (8.7-10.3) mg/dL 10/21/20 10/21/20 Range/Units 11:29 13:35 WBC (4.50-10.00) X 10*3/uL RBC (4.40-5.60) X 10*6/uL Hgb (13.0-17.0) g/dL Hct (39.6-50.0) % MCHC (32.0-37.0) g/dL RDW (11.5-14.5) % MPV (9.5-12.2) fL Absolute Nucleated RBC (0.00-0.00) X 10*3/uL Immature Gran # (0.00-0.04) X 10*3/uL Neutrophils # (1.80-7.70) X 10*3/uL Lymphocytes # (0.90-5.00) X 10*3/uL Eosinophils # (0.04-0.35) X 10*3/uL NRBC/100 WBC Diff (0.0-0.0) /100 WBCS ABG pCO2 30 L (35-45) mmHg ABG pO2 80 L (83-108) mmHg ABG HCO3 19 L (21-25) mmol/L Carbon Dioxide (21.6-31.8) mmol/L BUN (9.0-27.0) mg/dL BUN/Creatinine Ratio (12.00-20.00) Ratio Glucose (70-110) mg/dL POC Glucose (mg/dL) 173 H (75-99) mg/dL Calcium (8.7-10.3) mg/dL Assessment and Plan Assessment: ASSESSMENT Acute encephalopathy Hypotension Lactic acidosis Acute small bowel ischemia with pneumatosis intestinalis Status post exploration laparotomy with bowel resection and lysis of adhesions- postoperative day# 4 Superficial Basilic vein Thrombosis on the left UE Transaminitis Lactic acidosis - trending down Leukocytosis - Anemia- could be due to blood loss Coronary artery disease status post CABG Ischemic cardiomyopathy, ejection fraction 20-25% Prostate cancer with radiation therapy Type 2 diabetes mellitus Peripheral vascular disease with previous stenting of lower extremities Hypertension Hyperlipidemia Hypothyroidism Protein calorie malnutrition Severe PLAN: Patient has acute changes in his mentation along with low blood pressure and lactic acidosis. A stat CAT scan of the head was obtained which was negative for any acute intracranial process. Surgery Dr. Armstrong evaluated the patient and ordered a stat CT of the abdomen and pelvis. Patient was given a liter of bolus and his blood pressure is trending up slowly. There is an uptrend of white count, elevation of LFTs as well. He continues to be on Zosyn for antibiotic coverage. Patient has ischemic cardiomyopathy with ejection fraction of 20 - 25%, high risk surgical candidate. The patient condition was discussed in detail with his son was at the bedside. Patient's son mentions that he is aware of his father's condition and agrees that he has lot of chronic medical conditions. Overall prognosis is poor. Further recommendations to follow depending on the progress of the patient.
--- NOTE | 2020-10-21 16:28 | P.PN ---
Progress Note - Text Progress Note Date: 10/21/20 I personally spoke to Dr. Darnell regarding patient's clinical examination and studies for which he was aware. Abdomen remained soft without peritonitis. CT of the abdomen and pelvis report reviewed with free air. Findings on prior chest x-rays also demonstrated free air which may be postsurgical in nature.
[2020-10-21 16:45] LABS: Glucose,Whole Blood 129 mg/dL (75-99)
[2020-10-21 20:26] LABS: Glucose,Whole Blood 121 mg/dL (75-99)
[2020-10-21 23:27] LABS: Glucose,Whole Blood 113 mg/dL (75-99)
[2020-10-22] MEDS: PIPERACILLIN-TAZOBACTAM 3.375 GM in SODIUM CHLORIDE 0.9% 100 ML IVPB SCH ×3 (00:04→16:05)
--- NOTE | 2020-10-22 00:16 | P.EN ---
A team note Activated at 11:23 pm. Arrived on the scene shortly after. Reviewed the chart and discussed the case with the RN. The patient was reported to have an episode of hematemesis. Patient is admitted to the surgery service for ischemic bowel and underwent an exploratory laparoscopy with a small bowel resection on 10/17. The patient was noted to be confused throughout the day today and underwent a computed tomography scan of the abdomen which revealed free air below the diaphragm, suspected due to postsurgical changes. Intestinal pneumatosis along with ileus was noted. The patient's lactate was initially elevated at 3.8 yesterday and subsequently improved to 1.5 by the evening. The patient reportedly had a single episode of emesis with clots seen by the web content writer at the bedside. Patient himself noted some mild surgical site pain but denied additional complaints. Upon examination, the abdomen was soft with mild to moderate surgical site tenderness. Vital signs at the bedside were 116/58, pulse of 82, and SpO2 of 95% on room air. Patient was oriented to self and place but not to time. Hemoglobin was 11.6 earlier today. Repeat CBC, lactate, and coags were ordered. RN informed to hold Aspirin and plavix doses in am until cleared by primary team. Primary team was notified. Defer to primary team for considering repeat abdominal imaging.
[2020-10-22 00:41] LABS: Anisocytosis Slight; Basophils % (A) 0 %; Eosinophils % (A) 0 %; HCT 37.6 % (39.0-53.0); HGB 11.8 gm/dL (13.0-17.5); Hypochromasia Slight; Lymphocytes # (A) 0.5 k/uL (1.0-4.8); Lymphocytes % (A) 3 %; MCHC 31.5 g/dL (31.0-37.0); Mean Platelet Volume 7.1; Monocytes # (A) 0.7 k/uL (0-1.0); Monocytes % (A) 4 %; Neutrophils # (A) 16.6 k/uL (1.3-7.7); Neutrophils % (A) 93 %; Platelet Count 321 k/uL (150-450); Poikilocytosis Slight; RBC 4.22 m/uL (4.30-5.90); RDW 19.3 % (11.5-15.5); WBC 17.9 k/uL (3.8-10.6)
[2020-10-22 00:46] LABS: INR 1.7 (<1.2); Partial Thromboplastin Time 27.9 sec (22.0-30.0); Prothrombin Time 16.7 sec (9.0-12.0)
[2020-10-22] MEDS ORDERED: SODIUM CHLORIDE 0.9% 1,000 ML IV ONE ×2 (01:19→15:09)
[2020-10-22] MEDS ORDERED: SODIUM CHLORIDE 0.9% 500 ML 500 ML IV ONE (05:25)
[2020-10-22] MEDS: ASPIRIN 81 MG PO SCH (06:33)
[2020-10-22] MEDS: CLOPIDOGREL 75 MG TAB PO SCH (06:33)
[2020-10-22] MEDS: HEPARIN SODIUM,PORCINE 5,000 UNIT/ML 1 ML VIAL SQ SCH ×4 (06:34→16:05)
[2020-10-22 07:04] LABS: Glucose,Whole Blood 114 mg/dL (75-99)
[2020-10-22] MEDS: ATORVASTATIN 80 MG TAB PO SCH (07:15)
[2020-10-22] MEDS: SPIRONOLACTONE 25 MG TAB PO SCH (07:15)
[2020-10-22] MEDS: PANTOPRAZOLE 40 MG/10 ML VIAL IVP SCH (07:17)
[2020-10-22] MEDS: EZETIMIBE 10 MG TAB PO SCH (07:17)
[2020-10-22] MEDS: INSULIN ASPART (NovoLOG) 100 UNIT/ML VIAL SQ SCH ×3 (07:19→18:18)
[2020-10-22 08:54] LABS: Anisocytosis Slight; Basophils % (A) 0 %; Eosinophils % (A) 0 %; HCT 34.7 % (39.0-53.0); Hypochromasia Moderate; Lymphocytes # (A) 0.3 k/uL (1.0-4.8); Lymphocytes % (A) 2 %; MCH 28.5 pg (25.0-35.0); MCHC 31.8 g/dL (31.0-37.0); MCV 89.6 fL (80.0-100.0); Mean Platelet Volume 7.4; Monocytes # (A) 0.6 k/uL (0-1.0); Monocytes % (A) 3 %; Neutrophils # (A) 15.8 k/uL (1.3-7.7); Neutrophils % (A) 94 %; Platelet Count 235 k/uL (150-450); Poikilocytosis Slight; RBC 3.87 m/uL (4.30-5.90); RDW 19.3 % (11.5-15.5); WBC 16.9 k/uL (3.8-10.6)
[2020-10-22 09:10] LABS: African American GFR (CKD) >90 (>60 ml/min/1.73 sqM); Anion Gap 11 mmol/L; Blood Urea Nitrogen 39 mg/dL (9-20); Calcium 7.2 mg/dL (8.4-10.2); Carbon Dioxide 15 mmol/L (22-30); Chloride 111 mmol/L (98-107); Glucose 101 mg/dL (74-99); Non-African American GFR(CKD) 86 (>60 ml/min/1.73 sqM); Potassium 4.1 mmol/L (3.5-5.1); Sodium 137 mmol/L (137-145)
[2020-10-22 11:14] LABS: Glucose,Whole Blood 96 mg/dL (75-99)
--- NOTE | 2020-10-22 11:26 | P.EN ---
Rapid response called on patient by nursing staff secondary to hypotension. Patient blood pressure was 72/40. Patient received a total of 3.5 L of normal saline over the last 24 hours with minimal improvement in his blood pressure there remain soft. Lactic acid is not clearing. Patient is postoperative day #4 status post small bowel resection secondary to bowel ischemia. Last night he had the episode of hematemesis that hemoglobin remained stable. Computed tomography scan of the abdomen and pelvis done yesterday showed moderate free air in the abdomen representing postsurgical changes. Persistent moderate intestinal pneumatosis and moderate ileus. Patient was evaluated by me. He is lethargic but easily arousable. He appears critically ill. Blood pressure rechecked and he was 83/55. Patient had an echocardiogram during this admission showing ejection fraction of 20-25%. Patient was adequately resuscitated with IV fluids. I advised to start norepinephrine at the low dose and target MAP>65. Patient only has one peripheral IV and an attempt to insert the second IV by nursing staff was unsuccessful. I recommended transfer the patient to the intensive care unit for further management. He may require central access. I discussed the patient's case with the pulmonary disease specialist who is familiar with this patient. Family members updated by nursing staff and requested that status to be changed to DO NOT RESUSCITATE/DO NOT INTUBATE.
--- NOTE | 2020-10-22 12:50 | P.PN ---
<Chani Contreras - Last Filed: 10/22/20 12:47> Subjective Progress Note Date: 10/22/20 he patient is a 70-year-old male who follows in our office with Dr. Hubbard. We were recently consulted as the patient has a significant cardiac history, however he was admitted to the hospital for ischemic bowel disease. He underwent exploratory laparotomy with lysis of adhesions and small bowel resection on 10/17/20. The patient's cardiac medications were resumed, however the patient had an event yesterday where he became hypotensive and unresponsive. His cardiac medications are currently being held. The patient does appear to have acute mental status changes, as he is only able to respond to very simple questions. He does appear to be in acute pain, with tenderness in his abdomen. According to nursing staff his interaction with me is the most he has done since the beginning of the shift. They are in the process of having patient transferred to the ICU as his lactic acid continues to be high. GENERAL: Ill-appearing and in moderate distress. Patient guarding his abdomen. NECK: Supple without JVD or thyromegaly. LUNGS: Breath sounds clear to auscultation bilaterally. Inspiratory wheezes. Breathing is labored. HEART: Regular rate and rhythm. Systolic murmur. No rubs or gallops. S1 and S2 heard. EXTREMITIES: Normal range of motion, mild generalized edema. No clubbing or cyanosis. Peripheral pulses intact and strong. ABDOMEN: Surgical dressing in place; clean, dry, and intact VITALS: Blood pressure 126/76, respiratory rate 16, pulse rate 92, SpO2 97% on room air TELEMETRY: Sinus rhythm with heart rate in the 80s to 90s LABS: WBC 11.7, hemoglobin 11.8, hematocrit 39.4, platelet 326, sodium 138, potassium 4.3, BUN 40, creatinine 0.9 IMPRESSION: Acute ischemic bowel, status post exploratory lap with small bowel resection Hypotension, resolved Leukocytosis, improving Coronary artery disease, stable Ischemic cardiomyopathy, known EF of 20-25% PLAN: Continue to hold cardiac medications Agree with transfer back to the ICU Continue to recommend upon clinical course The patient has been seen and evaluated. Plan of care has been reviewed and agreed upon by Dr Brown. Objective - Vital Signs Vital signs: Vital Signs Temp 97.2 F L 10/22/20 07:36 Pulse 82 10/22/20 10:57 Resp 32 H 10/22/20 10:10 BP 97/54 10/22/20 11:18 Pulse Ox 95 10/22/20 10:30 Intake & Output 10/21/20 10/22/20 10/22/20 18:59 06:59 18:59 Output Total 250 350 Balance -250 -350 Output: Urine 250 350 Other: Voiding Method Indwelling Catheter Indwelling Catheter Indwelling Catheter # Bowel Movements 2 - Labs CBC & Chem 7: 10/22/20 08:10 10/22/20 08:10 Labs: Abnormal Lab Results - Last 24 Hours (Table) 10/21/20 10/21/20 10/21/20 Range/Units 13:35 14:10 14:10 WBC 19.3 H (3.8-10.6) k/uL RBC 4.08 L (4.30-5.90) m/uL Hgb 11.6 L (13.0-17.5) gm/dL Hct 35.8 L (39.0-53.0) % RDW 19.2 H (11.5-15.5) % Neutrophils # (1.3-7.7) k/uL Lymphocytes # (1.0-4.8) k/uL PT (9.0-12.0) sec INR (<1.2) ABG pCO2 30 L (35-45) mmHg ABG pO2 80 L (83-108) mmHg ABG HCO3 19 L (21-25) mmol/L Sodium (137-145) mmol/L Chloride (98-107) mmol/L Carbon Dioxide (22-30) mmol/L BUN (9-20) mg/dL Glucose (74-99) mg/dL POC Glucose (mg/dL) (75-99) mg/dL Plasma Lactic Acid [place] 3.8 H* (0.7-2.0) mmol/L Calcium (8.4-10.2) mg/dL AST (17-59) U/L ALT (4-49) U/L Troponin I (0.000-0.034) ng/mL Total Protein (6.3-8.2) g/dL Albumin (3.5-5.0) g/dL 10/21/20 10/21/20 10/21/20 Range/Units 15:08 15:08 16:44 WBC (3.8-10.6) k/uL RBC (4.30-5.90) m/uL Hgb (13.0-17.5) gm/dL Hct (39.0-53.0) % RDW (11.5-15.5) % Neutrophils # (1.3-7.7) k/uL Lymphocytes # (1.0-4.8) k/uL PT (9.0-12.0) sec INR (<1.2) ABG pCO2 (35-45) mmHg ABG pO2 (83-108) mmHg ABG HCO3 (21-25) mmol/L Sodium 135 L (137-145) mmol/L Chloride (98-107) mmol/L Carbon Dioxide 21 L (22-30) mmol/L BUN 40 H (9-20) mg/dL Glucose 151 H (74-99) mg/dL POC Glucose (mg/dL) 129 H (75-99) mg/dL Plasma Lactic Acid [place] (0.7-2.0) mmol/L Calcium 7.3 L (8.4-10.2) mg/dL AST 468 H (17-59) U/L ALT 420 H (4-49) U/L Troponin I 1.770 H* (0.000-0.034) ng/mL Total Protein 4.1 L (6.3-8.2) g/dL Albumin 1.8 L (3.5-5.0) g/dL 10/21/20 10/21/20 10/21/20 Range/Units 17:20 20:24 23:24 WBC (3.8-10.6) k/uL RBC (4.30-5.90) m/uL Hgb (13.0-17.5) gm/dL Hct (39.0-53.0) % RDW (11.5-15.5) % Neutrophils # (1.3-7.7) k/uL Lymphocytes # (1.0-4.8) k/uL PT (9.0-12.0) sec INR (<1.2) ABG pCO2 (35-45) mmHg ABG pO2 (83-108) mmHg ABG HCO3 (21-25) mmol/L Sodium (137-145) mmol/L Chloride (98-107) mmol/L Carbon Dioxide (22-30) mmol/L BUN (9-20) mg/dL Glucose (74-99) mg/dL POC Glucose (mg/dL) 121 H 113 H (75-99) mg/dL Plasma Lactic Acid [place] 2.5 H* (0.7-2.0) mmol/L Calcium (8.4-10.2) mg/dL AST (17-59) U/L ALT (4-49) U/L Troponin I (0.000-0.034) ng/mL Total Protein (6.3-8.2) g/dL Albumin (3.5-5.0) g/dL 10/21/20 10/21/20 10/21/20 Range/Units 23:53 23:53 23:53 WBC 17.9 H (3.8-10.6) k/uL RBC 4.22 L (4.30-5.90) m/uL Hgb 11.8 L (13.0-17.5) gm/dL Hct 37.6 L (39.0-53.0) % RDW 19.3 H (11.5-15.5) % Neutrophils # 16.6 H (1.3-7.7) k/uL Lymphocytes # 0.5 L (1.0-4.8) k/uL PT 16.7 H (9.0-12.0) sec INR 1.7 H (<1.2) ABG pCO2 (35-45) mmHg ABG pO2 (83-108) mmHg ABG HCO3 (21-25) mmol/L Sodium (137-145) mmol/L Chloride (98-107) mmol/L Carbon Dioxide (22-30) mmol/L BUN (9-20) mg/dL Glucose (74-99) mg/dL POC Glucose (mg/dL) (75-99) mg/dL Plasma Lactic Acid [place] 2.5 H* (0.7-2.0) mmol/L Calcium (8.4-10.2) mg/dL AST (17-59) U/L ALT (4-49) U/L Troponin I (0.000-0.034) ng/mL Total Protein (6.3-8.2) g/dL Albumin (3.5-5.0) g/dL 10/22/20 10/22/20 10/22/20 Range/Units 03:56 07:02 08:10 WBC 16.9 H (3.8-10.6) k/uL RBC 3.87 L (4.30-5.90) m/uL Hgb 11.0 L (13.0-17.5) gm/dL Hct 34.7 L (39.0-53.0) % RDW 19.3 H (11.5-15.5) % Neutrophils # 15.8 H (1.3-7.7) k/uL Lymphocytes # 0.3 L (1.0-4.8) k/uL PT (9.0-12.0) sec INR (<1.2) ABG pCO2 (35-45) mmHg ABG pO2 (83-108) mmHg ABG HCO3 (21-25) mmol/L Sodium (137-145) mmol/L Chloride (98-107) mmol/L Carbon Dioxide (22-30) mmol/L BUN (9-20) mg/dL Glucose (74-99) mg/dL POC Glucose (mg/dL) 114 H (75-99) mg/dL Plasma Lactic Acid [place] 2.4 H* (0.7-2.0) mmol/L Calcium (8.4-10.2) mg/dL AST (17-59) U/L ALT (4-49) U/L Troponin I (0.000-0.034) ng/mL Total Protein (6.3-8.2) g/dL Albumin (3.5-5.0) g/dL 10/22/20 10/22/20 10/22/20 Range/Units 08:10 08:10 12:04 WBC (3.8-10.6) k/uL RBC (4.30-5.90) m/uL Hgb (13.0-17.5) gm/dL Hct (39.0-53.0) % RDW (11.5-15.5) % Neutrophils # (1.3-7.7) k/uL Lymphocytes # (1.0-4.8) k/uL PT (9.0-12.0) sec INR (<1.2) ABG pCO2 (35-45) mmHg ABG pO2 (83-108) mmHg ABG HCO3 (21-25) mmol/L Sodium (137-145) mmol/L Chloride 111 H (98-107) mmol/L Carbon Dioxide 15 L (22-30) mmol/L BUN 39 H (9-20) mg/dL Glucose 101 H (74-99) mg/dL POC Glucose (mg/dL) (75-99) mg/dL Plasma Lactic Acid [place] 2.3 H* 4.3 H* (0.7-2.0) mmol/L Calcium 7.2 L (8.4-10.2) mg/dL AST (17-59) U/L ALT (4-49) U/L Troponin I (0.000-0.034) ng/mL Total Protein (6.3-8.2) g/dL Albumin (3.5-5.0) g/dL <Denton Brown - Last Filed: 10/22/20 13:24> Subjective Patient evaluated yesterday No improvement. Remains hypotensive Vasomotor paralysis with partial response to IV fluids Responsiveness is slow Pale looking Tender abdomen He stopped me from palpating his abdomen! Free air in the abdomen Has diarrhea post abdominal surgery This is extremely sick gentleman on account of his abdominal condition. His cardiac enzymes are abnormal on account of persistently low blood pressure that is only partially responsive to fluids This represents vasomotor paralysis Consider gangrenous bowel as a cause of his tender abdomen Carvedilol and lisinopril are on hold Objective - Vital Signs Vital signs: Vital Signs Temp 97.2 F L 10/22/20 07:36 Pulse 82 10/22/20 10:57 Resp 32 H 10/22/20 10:10 BP 97/54 10/22/20 11:18 Pulse Ox 95 10/22/20 10:30 Intake & Output 10/21/20 10/22/20 10/22/20 18:59 06:59 18:59 Output Total 250 350 Balance -250 -350 Output: Urine 250 350 Other: Voiding Method Indwelling Catheter Indwelling Catheter Indwelling Catheter # Bowel Movements 2 - Labs CBC & Chem 7: 10/22/20 08:10 10/22/20 08:10 Labs: Abnormal Lab Results - Last 24 Hours (Table) 10/21/20 10/21/20 10/21/20 Range/Units 13:35 14:10 14:10 WBC 19.3 H (3.8-10.6) k/uL RBC 4.08 L (4.30-5.90) m/uL Hgb 11.6 L (13.0-17.5) gm/dL Hct 35.8 L (39.0-53.0) % RDW 19.2 H (11.5-15.5) % Neutrophils # (1.3-7.7) k/uL Lymphocytes # (1.0-4.8) k/uL PT (9.0-12.0) sec INR (<1.2) ABG pCO2 30 L (35-45) mmHg ABG pO2 80 L (83-108) mmHg ABG HCO3 19 L (21-25) mmol/L Sodium (137-145) mmol/L Chloride (98-107) mmol/L Carbon Dioxide (22-30) mmol/L BUN (9-20) mg/dL Glucose (74-99) mg/dL POC Glucose (mg/dL) (75-99) mg/dL Plasma Lactic Acid [place] 3.8 H* (0.7-2.0) mmol/L Calcium (8.4-10.2) mg/dL AST (17-59) U/L ALT (4-49) U/L Troponin I (0.000-0.034) ng/mL Total Protein (6.3-8.2) g/dL Albumin (3.5-5.0) g/dL 10/21/20 10/21/20 10/21/20 Range/Units 15:08 15:08 16:44 WBC (3.8-10.6) k/uL RBC (4.30-5.90) m/uL Hgb (13.0-17.5) gm/dL Hct (39.0-53.0) % RDW (11.5-15.5) % Neutrophils # (1.3-7.7) k/uL Lymphocytes # (1.0-4.8) k/uL PT (9.0-12.0) sec INR (<1.2) ABG pCO2 (35-45) mmHg ABG pO2 (83-108) mmHg ABG HCO3 (21-25) mmol/L Sodium 135 L (137-145) mmol/L Chloride (98-107) mmol/L Carbon Dioxide 21 L (22-30) mmol/L BUN 40 H (9-20) mg/dL Glucose 151 H (74-99) mg/dL POC Glucose (mg/dL) 129 H (75-99) mg/dL Plasma Lactic Acid [place] (0.7-2.0) mmol/L Calcium 7.3 L (8.4-10.2) mg/dL AST 468 H (17-59) U/L ALT 420 H (4-49) U/L Troponin I 1.770 H* (0.000-0.034) ng/mL Total Protein 4.1 L (6.3-8.2) g/dL Albumin 1.8 L (3.5-5.0) g/dL 10/21/20 10/21/20 10/21/20 Range/Units 17:20 20:24 23:24 WBC (3.8-10.6) k/uL RBC (4.30-5.90) m/uL Hgb (13.0-17.5) gm/dL Hct (39.0-53.0) % RDW (11.5-15.5) % Neutrophils # (1.3-7.7) k/uL Lymphocytes # (1.0-4.8) k/uL PT (9.0-12.0) sec INR (<1.2) ABG pCO2 (35-45) mmHg ABG pO2 (83-108) mmHg ABG HCO3 (21-25) mmol/L Sodium (137-145) mmol/L Chloride (98-107) mmol/L Carbon Dioxide (22-30) mmol/L BUN (9-20) mg/dL Glucose (74-99) mg/dL POC Glucose (mg/dL) 121 H 113 H (75-99) mg/dL Plasma Lactic Acid [place] 2.5 H* (0.7-2.0) mmol/L Calcium (8.4-10.2) mg/dL AST (17-59) U/L ALT (4-49) U/L Troponin I (0.000-0.034) ng/mL Total Protein (6.3-8.2) g/dL Albumin (3.5-5.0) g/dL 10/21/20 10/21/20 10/21/20 Range/Units 23:53 23:53 23:53 WBC 17.9 H (3.8-10.6) k/uL RBC 4.22 L (4.30-5.90) m/uL Hgb 11.8 L (13.0-17.5) gm/dL Hct 37.6 L (39.0-53.0) % RDW 19.3 H (11.5-15.5) % Neutrophils # 16.6 H (1.3-7.7) k/uL Lymphocytes # 0.5 L (1.0-4.8) k/uL PT 16.7 H (9.0-12.0) sec INR 1.7 H (<1.2) ABG pCO2 (35-45) mmHg ABG pO2 (83-108) mmHg ABG HCO3 (21-25) mmol/L Sodium (137-145) mmol/L Chloride (98-107) mmol/L Carbon Dioxide (22-30) mmol/L BUN (9-20) mg/dL Glucose (74-99) mg/dL POC Glucose (mg/dL) (75-99) mg/dL Plasma Lactic Acid [place] 2.5 H* (0.7-2.0) mmol/L Calcium (8.4-10.2) mg/dL AST (17-59) U/L ALT (4-49) U/L Troponin I (0.000-0.034) ng/mL Total Protein (6.3-8.2) g/dL Albumin (3.5-5.0) g/dL 10/22/20 10/22/20 10/22/20 Range/Units 03:56 07:02 08:10 WBC 16.9 H (3.8-10.6) k/uL RBC 3.87 L (4.30-5.90) m/uL Hgb 11.0 L (13.0-17.5) gm/dL Hct 34.7 L (39.0-53.0) % RDW 19.3 H (11.5-15.5) % Neutrophils # 15.8 H (1.3-7.7) k/uL Lymphocytes # 0.3 L (1.0-4.8) k/uL PT (9.0-12.0) sec INR (<1.2) ABG pCO2 (35-45) mmHg ABG pO2 (83-108) mmHg ABG HCO3 (21-25) mmol/L Sodium (137-145) mmol/L Chloride (98-107) mmol/L Carbon Dioxide (22-30) mmol/L BUN (9-20) mg/dL Glucose (74-99) mg/dL POC Glucose (mg/dL) 114 H (75-99) mg/dL Plasma Lactic Acid [place] 2.4 H* (0.7-2.0) mmol/L Calcium (8.4-10.2) mg/dL AST (17-59) U/L ALT (4-49) U/L Troponin I (0.000-0.034) ng/mL Total Protein (6.3-8.2) g/dL Albumin (3.5-5.0) g/dL 10/22/20 10/22/20 10/22/20 Range/Units 08:10 08:10 12:04 WBC (3.8-10.6) k/uL RBC (4.30-5.90) m/uL Hgb (13.0-17.5) gm/dL Hct (39.0-53.0) % RDW (11.5-15.5) % Neutrophils # (1.3-7.7) k/uL Lymphocytes # (1.0-4.8) k/uL PT (9.0-12.0) sec INR (<1.2) ABG pCO2 (35-45) mmHg ABG pO2 (83-108) mmHg ABG HCO3 (21-25) mmol/L Sodium (137-145) mmol/L Chloride 111 H (98-107) mmol/L Carbon Dioxide 15 L (22-30) mmol/L BUN 39 H (9-20) mg/dL Glucose 101 H (74-99) mg/dL POC Glucose (mg/dL) (75-99) mg/dL Plasma Lactic Acid [place] 2.3 H* 4.3 H* (0.7-2.0) mmol/L Calcium 7.2 L (8.4-10.2) mg/dL AST (17-59) U/L ALT (4-49) U/L Troponin I (0.000-0.034) ng/mL Total Protein (6.3-8.2) g/dL Albumin (3.5-5.0) g/dL
[2020-10-22] MEDS ORDERED: NOREPINEPHRINE 4 MG in SODIUM CHLORIDE 0.9% 250 ML IV SCH (13:00)
[2020-10-22] MEDS: NOREPINEPHRINE 4 MG in SODIUM CHLORIDE 0.9% 250 ML IV SCH ×2 (13:16→21:02)
--- NOTE | 2020-10-22 15:09 | P.PN ---
Subjective Progress Note Date: 10/22/20 CHIEF COMPLAINT: Ischemic bowel HISTORY OF PRESENT ILLNESS: The patient is a 70-year-old male status post small bowel resection for ischemic bowel and small bowel obstruction, 10/17/2020. Patient had overnight events with elevated lactate levels. This morning patient also had event of hypotension. Patient being transferred to intensive care unit. Additional diagnostic studies for altered mental status changes including of the brain was obtained. Separately, additional diagnostic studies of the abdomen was obtained. He is more lethargic. He is in the ICU. Urine is less than 30 ml/hr. He is on pressors. ROS: Had hypotension including altered mental status changes. Ejection fraction less than 30%. PHYSICAL EXAM: VITAL SIGNS: Reviewed CONSTITUTIONAL: Well developed and in no acute distress. EYES: Conjuctivae without sclera icterus. Extraocular movements grossly intact. HEAD, EARS, NOSE, THROAT: Moist buccal mucosa. Head is atraumatic, normocephalic. Hears conversational speech. No nasal drainage. NECK: Supple. No thyroidomegaly. RESPIRATORY: Non-labored respirations and equal bilateral excursions. CARDIOVASCULAR: 2+ radial pulses. Regular rate. Regular rhythm. ABDOMEN: No peritonitis. Soft. MUSCULOSKELETAL: No gross deformity of the lower extremities noted. No clubbing. No cyanosis. SKIN: Good skin turgor. Well perfused. NEUROLOGIC: Cranial nerves II through XII grossly intact. No focal or lateralizing signs. PSYCH: Lethargic. CLINICAL LABS: WBC elevated over 16,000 from 11,000. Hemoglobin stable 11.1. Lactate elevated 2.3. ASSESSMENT: 1. Acute ischemic bowel status post resection 2. Anemia 3. Insulin-dependent diabetes type 2 with hyperglycemia 4. Abnormal computed tomography scan for pneumoperitoneum 5. Severe ischemic cardiomyopathy 6. Lactic acidosis PLAN: 1. IV fluid bolus for lactic acid elevation 2. Continue IV antibiotics. 3. Patient is high surgical risk for reoperation with severe ischemic cardiomyopathy with high chance of morbidity metallic Objective - Vital Signs Vital signs: Vital Signs Temp 97.2 F L 10/22/20 07:36 Pulse 82 10/22/20 10:57 Resp 32 H 10/22/20 10:10 BP 97/54 10/22/20 11:18 Pulse Ox 95 10/22/20 10:30 Intake & Output 10/21/20 10/22/20 10/22/20 18:59 06:59 18:59 Output Total 250 350 Balance -250 -350 Output: Urine 250 350 Other: Voiding Method Indwelling Catheter Indwelling Catheter Indwelling Catheter # Bowel Movements 2 - Labs CBC & Chem 7: 10/22/20 08:10 10/22/20 08:10 Labs: Abnormal Lab Results - Last 24 Hours (Table) 10/21/20 10/21/20 10/21/20 Range/Units 11:29 13:35 14:10 WBC 19.3 H (3.8-10.6) k/uL RBC 4.08 L (4.30-5.90) m/uL Hgb 11.6 L (13.0-17.5) gm/dL Hct 35.8 L (39.0-53.0) % RDW 19.2 H (11.5-15.5) % Neutrophils # (1.3-7.7) k/uL Lymphocytes # (1.0-4.8) k/uL PT (9.0-12.0) sec INR (<1.2) ABG pCO2 30 L (35-45) mmHg ABG pO2 80 L (83-108) mmHg ABG HCO3 19 L (21-25) mmol/L Sodium (137-145) mmol/L Chloride (98-107) mmol/L Carbon Dioxide (22-30) mmol/L BUN (9-20) mg/dL Glucose (74-99) mg/dL POC Glucose (mg/dL) 173 H (75-99) mg/dL Plasma Lactic Acid [place] (0.7-2.0) mmol/L Calcium (8.4-10.2) mg/dL AST (17-59) U/L ALT (4-49) U/L Troponin I (0.000-0.034) ng/mL Total Protein (6.3-8.2) g/dL Albumin (3.5-5.0) g/dL 10/21/20 10/21/20 10/21/20 Range/Units 14:10 15:08 15:08 WBC (3.8-10.6) k/uL RBC (4.30-5.90) m/uL Hgb (13.0-17.5) gm/dL Hct (39.0-53.0) % RDW (11.5-15.5) % Neutrophils # (1.3-7.7) k/uL Lymphocytes # (1.0-4.8) k/uL PT (9.0-12.0) sec INR (<1.2) ABG pCO2 (35-45) mmHg ABG pO2 (83-108) mmHg ABG HCO3 (21-25) mmol/L Sodium 135 L (137-145) mmol/L Chloride (98-107) mmol/L Carbon Dioxide 21 L (22-30) mmol/L BUN 40 H (9-20) mg/dL Glucose 151 H (74-99) mg/dL POC Glucose (mg/dL) (75-99) mg/dL Plasma Lactic Acid [place] 3.8 H* (0.7-2.0) mmol/L Calcium 7.3 L (8.4-10.2) mg/dL AST 468 H (17-59) U/L ALT 420 H (4-49) U/L Troponin I 1.770 H* (0.000-0.034) ng/mL Total Protein 4.1 L (6.3-8.2) g/dL Albumin 1.8 L (3.5-5.0) g/dL 10/21/20 10/21/20 10/21/20 Range/Units 16:44 17:20 20:24 WBC (3.8-10.6) k/uL RBC (4.30-5.90) m/uL Hgb (13.0-17.5) gm/dL Hct (39.0-53.0) % RDW (11.5-15.5) % Neutrophils # (1.3-7.7) k/uL Lymphocytes # (1.0-4.8) k/uL PT (9.0-12.0) sec INR (<1.2) ABG pCO2 (35-45) mmHg ABG pO2 (83-108) mmHg ABG HCO3 (21-25) mmol/L Sodium (137-145) mmol/L Chloride (98-107) mmol/L Carbon Dioxide (22-30) mmol/L BUN (9-20) mg/dL Glucose (74-99) mg/dL POC Glucose (mg/dL) 129 H 121 H (75-99) mg/dL Plasma Lactic Acid [place] 2.5 H* (0.7-2.0) mmol/L Calcium (8.4-10.2) mg/dL AST (17-59) U/L ALT (4-49) U/L Troponin I (0.000-0.034) ng/mL Total Protein (6.3-8.2) g/dL Albumin (3.5-5.0) g/dL 10/21/20 10/21/20 10/21/20 Range/Units 23:24 23:53 23:53 WBC 17.9 H (3.8-10.6) k/uL RBC 4.22 L (4.30-5.90) m/uL Hgb 11.8 L (13.0-17.5) gm/dL Hct 37.6 L (39.0-53.0) % RDW 19.3 H (11.5-15.5) % Neutrophils # 16.6 H (1.3-7.7) k/uL Lymphocytes # 0.5 L (1.0-4.8) k/uL PT 16.7 H (9.0-12.0) sec INR 1.7 H (<1.2) ABG pCO2 (35-45) mmHg ABG pO2 (83-108) mmHg ABG HCO3 (21-25) mmol/L Sodium (137-145) mmol/L Chloride (98-107) mmol/L Carbon Dioxide (22-30) mmol/L BUN (9-20) mg/dL Glucose (74-99) mg/dL POC Glucose (mg/dL) 113 H (75-99) mg/dL Plasma Lactic Acid [place] (0.7-2.0) mmol/L Calcium (8.4-10.2) mg/dL AST (17-59) U/L ALT (4-49) U/L Troponin I (0.000-0.034) ng/mL Total Protein (6.3-8.2) g/dL Albumin (3.5-5.0) g/dL 10/21/20 10/22/20 10/22/20 Range/Units 23:53 03:56 07:02 WBC (3.8-10.6) k/uL RBC (4.30-5.90) m/uL Hgb (13.0-17.5) gm/dL Hct (39.0-53.0) % RDW (11.5-15.5) % Neutrophils # (1.3-7.7) k/uL Lymphocytes # (1.0-4.8) k/uL PT (9.0-12.0) sec INR (<1.2) ABG pCO2 (35-45) mmHg ABG pO2 (83-108) mmHg ABG HCO3 (21-25) mmol/L Sodium (137-145) mmol/L Chloride (98-107) mmol/L Carbon Dioxide (22-30) mmol/L BUN (9-20) mg/dL Glucose (74-99) mg/dL POC Glucose (mg/dL) 114 H (75-99) mg/dL Plasma Lactic Acid [place] 2.5 H* 2.4 H* (0.7-2.0) mmol/L Calcium (8.4-10.2) mg/dL AST (17-59) U/L ALT (4-49) U/L Troponin I (0.000-0.034) ng/mL Total Protein (6.3-8.2) g/dL Albumin (3.5-5.0) g/dL 10/22/20 10/22/20 10/22/20 Range/Units 08:10 08:10 08:10 WBC 16.9 H (3.8-10.6) k/uL RBC 3.87 L (4.30-5.90) m/uL Hgb 11.0 L (13.0-17.5) gm/dL Hct 34.7 L (39.0-53.0) % RDW 19.3 H (11.5-15.5) % Neutrophils # 15.8 H (1.3-7.7) k/uL Lymphocytes # 0.3 L (1.0-4.8) k/uL PT (9.0-12.0) sec INR (<1.2) ABG pCO2 (35-45) mmHg ABG pO2 (83-108) mmHg ABG HCO3 (21-25) mmol/L Sodium (137-145) mmol/L Chloride 111 H (98-107) mmol/L Carbon Dioxide 15 L (22-30) mmol/L BUN 39 H (9-20) mg/dL Glucose 101 H (74-99) mg/dL POC Glucose (mg/dL) (75-99) mg/dL Plasma Lactic Acid [place] 2.3 H* (0.7-2.0) mmol/L Calcium 7.2 L (8.4-10.2) mg/dL AST (17-59) U/L ALT (4-49) U/L Troponin I (0.000-0.034) ng/mL Total Protein (6.3-8.2) g/dL Albumin (3.5-5.0) g/dL Assessment and Plan (1) Hypotension Current Visit: Yes Status: Acute Code(s): I95.9 - HYPOTENSION, UNSPECIFIED SNOMED Code(s): 84085263 (2) Altered mental status Current Visit: Yes Status: Acute Code(s): R41.82 - ALTERED MENTAL STATUS, UNSPECIFIED SNOMED Code(s): 120508560 (3) Pneumoperitoneum Current Visit: Yes Status: Acute Code(s): K66.8 - OTHER SPECIFIED DISORDERS OF PERITONEUM SNOMED Code(s): 44904263 (4) Abdominal pain Current Visit: Yes Status: Acute Code(s): R10.9 - UNSPECIFIED ABDOMINAL PAIN SNOMED Code(s): 68593967 (5) Ileus Current Visit: Yes Status: Acute Code(s): K56.7 - ILEUS, UNSPECIFIED SNOMED Code(s): 715688182 (6) Ischemic bowel disease Current Visit: Yes Status: Acute Code(s): K55.9 - VASCULAR DISORDER OF INTESTINE, UNSPECIFIED SNOMED Code(s): 97696939
--- NOTE | 2020-10-22 16:23 | P.CNNES ---
History of Present Illness Consult date: 10/22/20 Requesting physician: Magdalena Armstrong Reason for Consult: Altered mental status History of Present Illness: This is a Tele-Neurology consultation performed today. Patient is a 70-year-old male came to the hospital on 10/16/2020 at 5:36 PM for abdominal pain of past few hours duration. He does have history of mild to moderate dementia, diabetes hypertension. Patient was diagnosed with ischemic bowel, diabetes with elevated blood sugar, for which he underwent exploratory laparotomy on 10/15/2020 patient's aspirin and Plavix were held. He was placed on Zosyn. Patient has been somewhat hyporesponsive, hypotensive for which A-team was called. He was noted to be hypotensive with blood pressure around 78/43. He was given a fluid bolus which he responded to. His blood pressure again slightly dropped for whi ch she has been started on Levophed. Patient has been confused, which prompted this neurology consultation. Patient is thinking that he is playing cards. No other hallucinations, like seeing bugs, or kids. Per patient's , he has vascular dementia diagnosed 1-1/2 years ago. He is not able to drive. He gets intermittently confused. Most recent blood test shows WBC 16.9 hemoglobin 11.0, platelets 235. Sodium is normal potassium 4.1, BUN 39, creatinine 0.87. Lactate is elevated 2.3. He patic panel is elevated with AST 468, ALT 420. Troponins were elevated 1.77. CT scan of head showed no acute intracranial abnormality. Mastoid air cells are normal. Paranasal sinuses are clear. Venous Doppler of lower extremities negative for DVT. Superficial venous thrombosis within the basilic vein. Patient's abdominal CT pelvis showed interval laparotomy with moderate free air, which may represent postsurgical change. Persistent moderate intestinal pneumatosis. Mild to moderate dilation of bowel loops, suggestive of low to moderate grade ileus. Decrease portal venous gas. Patient's 2-D echo from 10/18/2020 shows normal left radicular size. Moderate concentric LVH, EF is 20-25% aortic valve is trileaflet and severely thickened. Mild aortic stenosis and regurgitation. Moderate mitral regurgitation. Patient has history of dementia, denies any tobacco or alcohol use. Patient has history of prostate cancer diagnosed last summer. Patient's also states that he lost weight from 234 down to 155 since then. Review of Systems Patient denies any pain anywhere. Per nurse patient would guard abdomen, but at present he is not complaining of any pain. He has memory loss, difficulty with remembering address. Other review of systems cannot be obtained. ROS unobtainable: due to mental status Past Medical History Past Medical History: Coronary Artery Disease (CAD), Cancer, Dementia, Diabetes Mellitus, Deep Vein Thrombosis (DVT), Hyperlipidemia, Hypertension, Myocardial Infarction ([place]), Thyroid Disorder Additional Past Medical History / Comment(s): prostate cancer with radiation 2018. anemia Last Myocardial Infarction Date:: 04/29/20 History of Any Multi-Drug Resistant Organisms: None Reported Past Surgical History: Appendectomy, Coronary Bypass/CABG, Heart Catheterization With Stent Additional Past Surgical History / Comment(s): heart stents and stents in magnus legs Past Anesthesia/Blood Transfusion Reactions: No Reported Reaction Date of Last Stent Placement:: 2014 Past Psychological History: Depression Additional Psychological History / Comment(s): dementia Smoking Status: Former smoker Past Alcohol Use History: None Reported Additional Past Alcohol Use History / Comment(s): smoker for 20 years quit age 38 Past Drug Use History: None Reported Medications and Allergies Home Medications Medication Instructions Recorded Confirmed Type Aspirin [Adult Low Dose Aspirin EC] 81 mg PO DAILY 05/18/20 10/16/20 History Atorvastatin [Lipitor] 80 mg PO DAILY 05/18/20 10/16/20 History Clopidogrel Bisulfate [Plavix] 75 mg PO DAILY 05/18/20 10/16/20 History Ezetimibe [Zetia] 10 mg PO DAILY 05/18/20 10/16/20 History Insulin Glargine [Lantus] 20 unit SQ HS 05/18/20 10/16/20 History QUEtiapine [SEROquel] 25 mg PO HS 05/18/20 10/16/20 History lisinopriL 20 mg PO BID 05/18/20 10/16/20 History Levothyroxine Sodium [Synthroid] 25 mg PO DAILY 08/04/20 10/16/20 History Ascorbic Acid [Vitamin C] 1,000 mg PO DAILY 10/16/20 10/16/20 History Cholecalciferol [Vitamin D3 (25 25 mcg PO DAILY 10/16/20 10/16/20 History Mcg = 1000 Iu)] Cyanocobalamin (Vitamin B-12) 2,500 mcg PO DAILY 10/16/20 10/16/20 History [Vitamin B-12] Cyclobenzaprine [Flexeril] 5 mg PO TID PRN 10/16/20 10/16/20 History Magnesium Oxide [Valdes] 500 mg PO DAILY 10/16/20 10/16/20 History Tolterodine ER [Detrol LA] 4 mg PO DAILY 10/16/20 10/16/20 History Allergies Allergy/AdvReac Type Severity Reaction Status Date / Time No Known Allergies Allergy Verified 10/16/20 18:30 Physical Examination - Vital Signs Vital Signs: Vital Signs Temp Pulse Pulse Resp BP BP Pulse Ox 10/22/20 11:18 97/54 10/22/20 10:57 82 96/46 10/22/20 10:40 86/52 10/22/20 10:37 68/47 10/22/20 10:30 80/43 95 10/22/20 10:10 100 32 H 74/43 95 10/22/20 07:36 97.2 F L 80 17 100/63 99 10/22/20 07:00 17 10/22/20 05:27 82 16 107/55 97 10/22/20 04:14 97.7 F 82 15 108/68 98 10/21/20 23:23 82 116/58 95 10/21/20 19:52 97.4 F L 81 16 115/68 98 10/21/20 16:40 97.5 F L 73 16 121/71 96 10/21/20 13:20 74/32 10/21/20 13:00 97.3 F L 102 H 102/66 90 L 10/21/20 11:53 97.3 F L 99 17 101/69 94 L Intake and Output 10/21/20 10/22/20 10/22/20 22:59 06:59 14:59 Output Total 250 350 Balance -250 -350 Output: Urine 250 350 Other: Voiding Method Indwelling Catheter Indwelling Catheter # Bowel Movements 2 On examination patient is an elderly male, who appears lethargic, significantly decreased attention span and concentration. He is slow to respond. Requires multiple attempts to get any response. Patient mumbles at times. Patient was able to tell his name, and his age of 70. He thinks he is in [place]. He has lived in [place] for 20 years, moved to [place] in April 2020, as per his . Patient states that currently her is 1973, cannot tell name of the president. On cranial exertion pupils are 3 mm, round and reacting. Extraocular muscles intact, no nystagmus. Face is symmetric. He weakly protrude his tongue and was midline. Patient's shoulder shrug is equal. Facial sensations is normal. On muscle strength testing patient did not cooperate well. His chief clinical dietitian is equal bilaterally. He is generalized weak, with decreased endurance and effort. His plantarflexion appears equal about 4+. He has mild peripheral edema. Some skin changes were noted. Reflexes are hypoactive, trace at the biceps, 0 brachioradialis, trace at the knee, absent ankles and plantars are possibly upgoing. Cerebellar functions could not be tested. Tone and bulk of muscles normal. No obvious seizure activity. No obvious bruit, S1 and S2 audible. Results - Laboratory Findings CBC and BMP: 10/22/20 08:10 10/22/20 08:10 Abnormal Lab Findings: Abnormal Labs 10/16/20 10/16/20 10/16/20 18:14 18:14 18:14 WBC 15.3 H RBC 3.85 L Hgb 10.5 L Hct 32.4 L MCHC RDW 18.9 H MPV Absolute Nucleated RBC Immature Gran # Neutrophils # 11.5 H Lymphocytes # Monocytes # 1.2 H Eosinophils # NRBC/100 WBC Diff PT INR APTT 18.7 L ABG pCO2 ABG pO2 ABG HCO3 Sodium 134 L Potassium Chloride Carbon Dioxide Anion Gap BUN 30 H BUN/Creatinine Ratio Glucose 245 H POC Glucose (mg/dL) Hemoglobin A1c Plasma Lactic Acid [place] Calcium AST ALT Troponin I Total Protein 6.0 L Albumin 3.3 L Crossmatch 10/16/20 10/16/20 10/17/20 18:14 21:34 00:22 WBC RBC Hgb Hct MCHC RDW MPV Absolute Nucleated RBC Immature Gran # Neutrophils # Lymphocytes # Monocytes # Eosinophils # NRBC/100 WBC Diff PT INR APTT ABG pCO2 ABG pO2 ABG HCO3 Sodium Potassium Chloride Carbon Dioxide Anion Gap BUN BUN/Creatinine Ratio Glucose POC Glucose (mg/dL) Hemoglobin A1c Plasma Lactic Acid [place] 2.1 H* 4.2 H* 5.1 H* Calcium AST ALT Troponin I Total Protein Albumin Crossmatch 10/17/20 10/17/2021 04:23 07:37 08:30 WBC RBC Hgb Hct MCHC RDW MPV Absolute Nucleated RBC Immature Gran # Neutrophils # Lymphocytes # Monocytes # Eosinophils # NRBC/100 WBC Diff PT INR APTT ABG pCO2 ABG pO2 ABG HCO3 Sodium Potassium Chloride Carbon Dioxide Anion Gap BUN BUN/Creatinine Ratio Glucose POC Glucose (mg/dL) 422 H Hemoglobin A1c Plasma Lactic Acid [place] 7.3 H* 5.4 H* Calcium AST ALT Troponin I Total Protein Albumin Crossmatch 10/17/20 10/17/20 10/17/20 10:10 10:39 12:30 WBC RBC Hgb Hct MCHC RDW MPV Absolute Nucleated RBC Immature Gran # Neutrophils # Lymphocytes # Monocytes # Eosinophils # NRBC/100 WBC Diff PT INR APTT ABG pCO2 ABG pO2 ABG HCO3 Sodium Potassium Chloride Carbon Dioxide Anion Gap BUN BUN/Creatinine Ratio Glucose POC Glucose (mg/dL) 371 H 331 H Hemoglobin A1c Plasma Lactic Acid [place] Calcium AST ALT Troponin I Total Protein Albumin Crossmatch See Detail 10/17/20 10/17/20 10/17/20 13:24 15:40 15:40 WBC 16.1 H RBC 3.08 L Hgb 8.5 L D Hct 26.7 L MCHC RDW 19.5 H MPV Absolute Nucleated RBC Immature Gran # Neutrophils # 14.0 H Lymphocytes # Monocytes # Eosinophils # NRBC/100 WBC Diff PT 12.2 H INR 1.2 H APTT ABG pCO2 ABG pO2 ABG HCO3 Sodium Potassium Chloride Carbon Dioxide Anion Gap BUN BUN/Creatinine Ratio Glucose POC Glucose (mg/dL) 284 H Hemoglobin A1c Plasma Lactic Acid [place] Calcium AST ALT Troponin I Total Protein Albumin Crossmatch 10/17/20 10/17/20 10/17/20 15:40 15:40 19:12 WBC RBC Hgb Hct MCHC RDW MPV Absolute Nucleated RBC Immature Gran # Neutrophils # Lymphocytes # Monocytes # Eosinophils # NRBC/100 WBC Diff PT INR APTT ABG pCO2 ABG pO2 ABG HCO3 Sodium Potassium Chloride Carbon Dioxide Anion Gap BUN 35 H BUN/Creatinine Ratio Glucose 182 H POC Glucose (mg/dL) 189 H Hemoglobin A1c Plasma Lactic Acid [place] 4.0 H* Calcium AST 457 H ALT 295 H Troponin I Total Protein 4.5 L Albumin 2.3 L Crossmatch 10/17/20 10/17/20 10/17/20 20:27 21:22 22:32 WBC RBC Hgb Hct MCHC RDW MPV Absolute Nucleated RBC Immature Gran # Neutrophils # Lymphocytes # Monocytes # Eosinophils # NRBC/100 WBC Diff PT INR APTT ABG pCO2 ABG pO2 ABG HCO3 Sodium Potassium Chloride Carbon Dioxide Anion Gap BUN BUN/Creatinine Ratio Glucose POC Glucose (mg/dL) 171 H 172 H 134 H Hemoglobin A1c Plasma Lactic Acid [place] Calcium AST ALT Troponin I Total Protein Albumin Crossmatch 10/17/20 10/17/20 10/18/20 23:21 23:55 00:48 WBC 17.2 H RBC 3.48 L Hgb 9.7 L Hct 30.3 L MCHC RDW 18.6 H MPV Absolute Nucleated RBC Immature Gran # Neutrophils # 14.6 H Lymphocytes # Monocytes # Eosinophils # NRBC/100 WBC Diff PT INR APTT ABG pCO2 ABG pO2 ABG HCO3 Sodium Potassium Chloride Carbon Dioxide Anion Gap BUN BUN/Creatinine Ratio Glucose POC Glucose (mg/dL) 128 H 113 H Hemoglobin A1c Plasma Lactic Acid [place] Calcium AST ALT Troponin I Total Protein Albumin Crossmatch 10/18/20 10/18/20 10/18/20 03:59 03:59 03:59 WBC 16.6 H RBC 3.41 L Hgb 10.0 L Hct 29.6 L MCHC RDW 18.7 H MPV Absolute Nucleated RBC Immature Gran # Neutrophils # 14.4 H Lymphocytes # Monocytes # Eosinophils # NRBC/100 WBC Diff PT INR APTT ABG pCO2 ABG pO2 ABG HCO3 Sodium Potassium Chloride Carbon Dioxide Anion Gap BUN 33 H BUN/Creatinine Ratio Glucose 100 H POC Glucose (mg/dL) Hemoglobin A1c 7.7 H Plasma Lactic Acid [place] Calcium 8.3 L AST 307 H ALT 306 H Troponin I Total Protein 4.4 L Albumin 2.3 L Crossmatch 10/18/20 10/18/20 10/18/20 03:59 05:26 06:26 WBC RBC Hgb Hct MCHC RDW MPV Absolute Nucleated RBC Immature Gran # Neutrophils # Lymphocytes # Monocytes # Eosinophils # NRBC/100 WBC Diff PT 12.3 H INR 1.2 H APTT ABG pCO2 ABG pO2 ABG HCO3 Sodium Potassium Chloride Carbon Dioxide Anion Gap BUN BUN/Creatinine Ratio Glucose POC Glucose (mg/dL) 120 H 100 H Hemoglobin A1c Plasma Lactic Acid [place] Calcium AST ALT Troponin I Total Protein Albumin Crossmatch 10/18/20 10/18/20 10/18/20 11:48 16:50 21:03 WBC RBC Hgb Hct MCHC RDW MPV Absolute Nucleated RBC Immature Gran # Neutrophils # Lymphocytes # Monocytes # Eosinophils # NRBC/100 WBC Diff PT INR APTT ABG pCO2 ABG pO2 ABG HCO3 Sodium Potassium Chloride Carbon Dioxide Anion Gap BUN BUN/Creatinine Ratio Glucose POC Glucose (mg/dL) 100 H 114 H 137 H Hemoglobin A1c Plasma Lactic Acid [place] Calcium AST ALT Troponin I Total Protein Albumin Crossmatch 10/19/20 10/19/20 10/19/20 04:18 04:18 06:48 WBC 17.1 H RBC 3.80 L Hgb 11.0 L Hct 33.4 L MCHC RDW 19.0 H MPV Absolute Nucleated RBC Immature Gran # Neutrophils # 15.0 H Lymphocytes # 0.9 L Monocytes # 1.1 H Eosinophils # NRBC/100 WBC Diff PT INR APTT ABG pCO2 ABG pO2 ABG HCO3 Sodium Potassium 5.2 H Chloride Carbon Dioxide Anion Gap BUN 45 H BUN/Creatinine Ratio Glucose 124 H POC Glucose (mg/dL) 142 H Hemoglobin A1c Plasma Lactic Acid [place] Calcium AST ALT Troponin I Total Protein Albumin Crossmatch 10/19/20 10/19/20 10/19/20 11:56 17:22 20:23 WBC RBC Hgb Hct MCHC RDW MPV Absolute Nucleated RBC Immature Gran # Neutrophils # Lymphocytes # Monocytes # Eosinophils # NRBC/100 WBC Diff PT INR APTT ABG pCO2 ABG pO2 ABG HCO3 Sodium Potassium Chloride Carbon Dioxide Anion Gap BUN BUN/Creatinine Ratio Glucose POC Glucose (mg/dL) 116 H 130 H 139 H Hemoglobin A1c Plasma Lactic Acid [place] Calcium AST ALT Troponin I Total Protein Albumin Crossmatch 10/20/20 10/20/20 10/20/20 06:39 06:39 06:55 WBC 16.9 H RBC 3.78 L Hgb 10.8 L Hct 34.8 L MCHC RDW 18.6 H MPV Absolute Nucleated RBC Immature Gran # Neutrophils # 14.7 H Lymphocytes # 0.9 L Monocytes # 1.1 H Eosinophils # NRBC/100 WBC Diff PT INR APTT ABG pCO2 ABG pO2 ABG HCO3 Sodium Potassium Chloride Carbon Dioxide 16.9 L Anion Gap 15.10 H BUN 50.0 H BUN/Creatinine Ratio 50.00 H Glucose 147 H POC Glucose (mg/dL) 150 H Hemoglobin A1c Plasma Lactic Acid [place] Calcium 8.2 L AST ALT Troponin I Total Protein Albumin Crossmatch 10/20/20 10/20/20 10/20/20 11:11 16:39 20:27 WBC RBC Hgb Hct MCHC RDW MPV Absolute Nucleated RBC Immature Gran # Neutrophils # Lymphocytes # Monocytes # Eosinophils # NRBC/100 WBC Diff PT INR APTT ABG pCO2 ABG pO2 ABG HCO3 Sodium Potassium Chloride Carbon Dioxide Anion Gap BUN BUN/Creatinine Ratio Glucose POC Glucose (mg/dL) 139 H 193 H 203 H Hemoglobin A1c Plasma Lactic Acid [place] Calcium AST ALT Troponin I Total Protein Albumin Crossmatch 10/21/20 10/21/20 10/21/20 00:18 06:12 06:12 WBC 11.70 H RBC 4.28 L Hgb 11.8 L Hct 39.4 L MCHC 29.9 L RDW 19.7 H MPV 9.3 L Absolute Nucleated RBC 0.03 H Immature Gran # 0.07 H Neutrophils # 10.10 H Lymphocytes # 0.74 L Monocytes # Eosinophils # 0 L NRBC/100 WBC Diff 0.3 H PT INR APTT ABG pCO2 ABG pO2 ABG HCO3 Sodium Potassium Chloride Carbon Dioxide 20.4 L Anion Gap BUN 40.0 H BUN/Creatinine Ratio 44.44 H Glucose 202 H POC Glucose (mg/dL) 258 H Hemoglobin A1c Plasma Lactic Acid [place] Calcium 7.8 L AST ALT Troponin I Total Protein Albumin Crossmatch 10/21/20 10/21/20 10/21/20 06:51 11:29 13:35 WBC RBC Hgb Hct MCHC RDW MPV Absolute Nucleated RBC Immature Gran # Neutrophils # Lymphocytes # Monocytes # Eosinophils # NRBC/100 WBC Diff PT INR APTT ABG pCO2 30 L ABG pO2 80 L ABG HCO3 19 L Sodium Potassium Chloride Carbon Dioxide Anion Gap BUN BUN/Creatinine Ratio Glucose POC Glucose (mg/dL) 168 H 173 H Hemoglobin A1c Plasma Lactic Acid [place] Calcium AST ALT Troponin I Total Protein Albumin Crossmatch 10/21/20 10/21/20 10/21/20 14:10 14:10 15:08 WBC 19.3 H RBC 4.08 L Hgb 11.6 L Hct 35.8 L MCHC RDW 19.2 H MPV Absolute Nucleated RBC Immature Gran # Neutrophils # Lymphocytes # Monocytes # Eosinophils # NRBC/100 WBC Diff PT INR APTT ABG pCO2 ABG pO2 ABG HCO3 Sodium 135 L Potassium Chloride Carbon Dioxide 21 L Anion Gap BUN 40 H BUN/Creatinine Ratio Glucose 151 H POC Glucose (mg/dL) Hemoglobin A1c Plasma Lactic Acid [place] 3.8 H* Calcium 7.3 L AST 468 H ALT 420 H Troponin I Total Protein 4.1 L Albumin 1.8 L Crossmatch 10/21/20 10/21/20 10/21/20 15:08 16:44 17:20 WBC RBC Hgb Hct MCHC RDW MPV Absolute Nucleated RBC Immature Gran # Neutrophils # Lymphocytes # Monocytes # Eosinophils # NRBC/100 WBC Diff PT INR APTT ABG pCO2 ABG pO2 ABG HCO3 Sodium Potassium Chloride Carbon Dioxide Anion Gap BUN BUN/Creatinine Ratio Glucose POC Glucose (mg/dL) 129 H Hemoglobin A1c Plasma Lactic Acid [place] 2.5 H* Calcium AST ALT Troponin I 1.770 H* Total Protein Albumin Crossmatch 10/21/20 10/21/20 10/21/20 20:24 23:24 23:53 WBC 17.9 H RBC 4.22 L Hgb 11.8 L Hct 37.6 L MCHC RDW 19.3 H MPV Absolute Nucleated RBC Immature Gran # Neutrophils # 16.6 H Lymphocytes # 0.5 L Monocytes # Eosinophils # NRBC/100 WBC Diff PT INR APTT ABG pCO2 ABG pO2 ABG HCO3 Sodium Potassium Chloride Carbon Dioxide Anion Gap BUN BUN/Creatinine Ratio Glucose POC Glucose (mg/dL) 121 H 113 H Hemoglobin A1c Plasma Lactic Acid [place] Calcium AST ALT Troponin I Total Protein Albumin Crossmatch 10/21/20 10/21/20 10/22/20 23:53 23:53 03:56 WBC RBC Hgb Hct MCHC RDW MPV Absolute Nucleated RBC Immature Gran # Neutrophils # Lymphocytes # Monocytes # Eosinophils # NRBC/100 WBC Diff PT 16.7 H INR 1.7 H APTT ABG pCO2 ABG pO2 ABG HCO3 Sodium Potassium Chloride Carbon Dioxide Anion Gap BUN BUN/Creatinine Ratio Glucose POC Glucose (mg/dL) Hemoglobin A1c Plasma Lactic Acid [place] 2.5 H* 2.4 H* Calcium AST ALT Troponin I Total Protein Albumin Crossmatch 10/22/20 10/22/20 10/22/20 07:02 08:10 08:10 WBC 16.9 H RBC 3.87 L Hgb 11.0 L Hct 34.7 L MCHC RDW 19.3 H MPV Absolute Nucleated RBC Immature Gran # Neutrophils # 15.8 H Lymphocytes # 0.3 L Monocytes # Eosinophils # NRBC/100 WBC Diff PT INR APTT ABG pCO2 ABG pO2 ABG HCO3 Sodium Potassium Chloride 111 H Carbon Dioxide 15 L Anion Gap BUN 39 H BUN/Creatinine Ratio Glucose 101 H POC Glucose (mg/dL) 114 H Hemoglobin A1c Plasma Lactic Acid [place] Calcium 7.2 L AST ALT Troponin I Total Protein Albumin Crossmatch 10/22/20 08:10 WBC RBC Hgb Hct MCHC RDW MPV Absolute Nucleated RBC Immature Gran # Neutrophils # Lymphocytes # Monocytes # Eosinophils # NRBC/100 WBC Diff PT INR APTT ABG pCO2 ABG pO2 ABG HCO3 Sodium Potassium Chloride Carbon Dioxide Anion Gap BUN BUN/Creatinine Ratio Glucose POC Glucose (mg/dL) Hemoglobin A1c Plasma Lactic Acid [place] 2.3 H* Calcium AST ALT Troponin I Total Protein Albumin Crossmatch Assessment and Plan Assessment: * Altered mental status, likely due to toxic metabolic encephalopathy. Patient is obviously encephalopathic, but still partially oriented. Limited examination is nonfocal. * Acute Ischemic bowel, status post exploratory laparotomy with small bowel resection. * Hypertension, improved with fluids. * Status post hematemesis * CAD * Ischemic cardiomyopathy with EF 20-25% Plan: * Patient is obviously encephalopathic. This is related to multiple underlying medical/surgical conditions as listed above. Limited examination is nonfocal. * Medical and surgical management as per IM/surgery respectively. * We will follow patient clinically. * Dr. Jp Ndiaye Will resume neurology service for morning.
--- NOTE | 2020-10-22 16:25 | P.PN ---
Subjective Progress Note Date: 10/22/20 70-year-old male patient who arrived from the operating room where the patient had a extensive laparotomy, lysis of adhesions and small bowel resection for ischemic bowel. The patient was found to have ischemic bowel intraoperatively. Postop, the patient was extubated and patient was brought into the ICU for further care. At this point in time the patient is on oxygen at 3 L and his pulse ox around 93%. His BP is 101/56. He has nausea upper extremity peripheral IV. No central lines inserted. He has a Bowman catheter in place. He is currently running IV fluids at the rate of 150 mL an hour of normal saline. He will be given a 2 L bolus immediately here in the ICU knowing that his urine output has been in the order of 10-20 mL an hour. The patient came into the emergency department on October 16 and the patient was complaining of abdominal pain and he also had some lactic acidosis. Note that he has vasculopathy angios diabetes mellitus hypertension and underlying dementia and he is also known to have CAD and prostate cancer for which she has associated radiation therapy. The patient had a CAT scan of the abdomen and pelvis that was done in the emergency department yesterday and the CAT scan showed no evidence of any free air. There was diffuse pneumatosis intestinalis involving the mid and the distal portion of the small bowel loops with 40 venous gas consistent with bowel ischemia. There was also associated mild to moderate grade of an ileus. For that reason, the patient was taken to the operating room today. Note that his lactic acid level was 5.4. Currently is awake. Is unresponsive. Moving all 4 extremities. The patient already received a total of 4 L of fluid boluses. He is currently on IV Zosyn. Today's evaluation of 10/18/2020, the patient is postop day #1 following exploratory laparotomy and small bowel resection for underlying bowel ischemia. The patient was extubated and recovered. He remains extubated for now. Is on oxygen at 3 L and his pulse ox is around 97%. He is not using his incentive spirometer aggressively. Hemodynamically, he is stable on no pressors. IV fluids are running in the form of normal saline at rate of 150 mL an hour. The fluid balance over the past 24 hours has been +4.8 L of the patient received several fluid boluses. His urine output was lower running between 10-20 mL an hour and the last bolus of fluid was given to him at around 8 PM yesterday. The patient's blood work from today shows a white cell count of 16 with a hemoglobin of 10. Note that the patient received also units of packed RBC yesterday. His BUN is 33 with a creatinine of 0.9. LFTs are improving including an AST of 307, ALT of 306 and the rest of the electrodes are all within normal limits. Albumin is down to 2.3. Surgical wound site over the anterior abdominal wall is dry clean and intact. The patient has no drains. Bowel sounds are quite hypoactive. Chest x-ray showing air under the right hemidiaphragm, likely posts urgical. The patient has signs of previous thoracotomy. Atelectatic changes can be seen also in the lung bases bilaterally. There is also right pleural thickening. Note that the patient's lactic is down to 1.2 acute on insulin drip last night and the patient was placed on insulin drip yesterday upon my request and the blood sugars under tighter control and current insulin drip is off and the patient is on a sliding scale coverage. 10/19/2020 the patient is being seen for a follow-up. The patient is postop day #2 and the patient underwent laparotomy and small bowel resection for bowel is chemia. As mentioned, the patient was extubated without any major difficulties. This morning he is on room air oxygen. He is using incentive spirometer and he remains hemodynamically stable. No reported abdominal pain for now. The patient has not passed any flatus yet. No major abdominal distention. No nausea. No vomiting. He remains on IV Zosyn for now. White cell count is at 17 which is essentially compatible to yesterday. The patient has no symptoms to metabolic acidosis. Serum bicarb is 25. His creatinine is at 1.1. Surgical wound site is dry clean and intact. No other significant events otherwise for now. He is receiving Dilaudid for pain control and he is also on heparin subcu for DVT prophylaxis. Blood sugars are also under good control and the patient is receiving sliding scale coverage insulin drip has been discontinued. No other significant events overnight. He is awake and alert and is following commands. On today's evaluation of the 2020 the patient is currently on a medical floor and was transferred out of the intensive care unit. His postop day #3. He is doing well. His chest x-ray from today shows some interstitial edema. There are some air under the right hemidiaphragm. There is also cardiomegaly. There may be some interstitial edema and fluid overload. His fluid balance has been positive more than 6 or 7 L over the past 48 hours. He is currently on normal saline at the rate of 100 mL an hour. He still nothing by mouth. We are going to proceed with some clear liquid diet today. He remains on IV Zosyn. Surgical wound site is dry clean and intact. No abdominal pain. No abdominal tenderness. White cell count today is at 16.9. Was attempted 0.8. General surgeries on the case. He also has some increased swelling in left upper extremity and the patient is going to have a ultrasound Doppler to rule out DVT. 10/21/2020, the patient is postop day #4. He is still on a medical floor. Doing well. On room air oxygen. Surgical wound site is dry clean and intact. Is using incentive spirometer. Is taking clear liquids. Nevertheless, I see him more lethargic compared to yesterday. It is probably that the patient has taken a dose of Avelox. That made him more lethargic. In general, he is much more interactive than what he is right now. His blood work today showing a white cell count of 11 and hemoglobin of 11.8 and platelet count of 326. Serum bicarb is at 20 with a BUN of 48 and creatinine of 0.9. He is receiving IV fluids with normal saline at the rate of 50 mL an hour. On today's evaluation 10/22/2020, the patient is postop day #5. Note that the patient was seen yesterday on the floor and he was becoming more lethargic and somnolent and subsequently started developing more abdominal discomfort and he got transferred to the intensive care unit because of abdominal pain and hypotension. Currently, his white count was mildly elevated and is consistent yesterday's value of the 16.9. Upon arrival to the ICU, his lactic acid level was 4.3 and he was given IV fluids in the form of 1.5 L of normal saline and his lactic acid level came down to 2.5. His blood work is also showing a component of anion gap metabolic acidosis with a serum bicarb of 15. The patient had a CAT scan of the abdomen yesterday that did not show any ischemic changes. There was some. It was thought to be related to postsurgical changes. Nevertheless, my overall clinical suspicion for ischemic bowel is very high based on his ongoing presentation. The patient had bowel resection for ischemic bowel and earlier down by Dr. Wynn. He has had a clear surgical wound. No significant distention. No emesis. Neurologically is quite altered and on the right and confused. Creatinine today is at 0.8. He remains on broad-spectrum antibiotics utilizing zosyn Objective - Vital Signs Vital signs: Vital Signs Temp 98.0 F 10/22/20 11:30 Pulse 71 10/22/20 15:00 Resp 26 H 10/22/20 15:00 BP 95/52 10/22/20 15:00 Pulse Ox 100 10/22/20 14:45 Intake & Output 10/21/20 10/22/20 10/22/20 18:59 06:59 18:59 Intake Total 1230.785 Output Total 250 350 30 Balance -250 -350 1200.785 Intake: Intake, IV Titration 1230.785 Amount Norepinephrine 4 mg In 30.785 Sodium Chloride 0.9% 250 ml @ 0.05 MCG/KG/MIN 15. 24 mls/hr IV .[id number] SEFERINO Rx#:[id number] Sodium Chloride 0.9% 500 1200 ml 500 ml @ 999 mls/hr IV .Q31M ONE Rx#:[id number] Output: Urine 250 350 30 Other: Voiding Method Indwelling Catheter Indwelling Catheter Indwelling Catheter # Bowel Movements 2 - Exam Gen. appearance the patient is calm and comfortable likely distress, on 3 L of oxygen by nasal cannula. Head exam was generally normal. There was no scleral icterus or corneal arcus. Mucous membranes were moist. Neck was supple and without jugular venous distension, thyromegaly, or carotid bruits. Carotids were easily palpable bilaterally. There was no adenopathy. Lungs sounds are diminished yet the BS diminished symmetrical bilaterally. Cardiac exam revealed the PMI to be normally situated and sized. The rhythm was regular and no extrasystoles were noted during several minutes of auscultation. The first and second heart sounds were normal and physiologic splitting of the second heart sound was noted. There were grade 3/6 left precordial murmurs, rubs, clicks, or gallops. Abdomen is soft. Surgical wound site is dry clean and intact. mild direct tenderness. No rebound tenderness. No guarding. The patient's has a clean incision sites. No organomegaly. No bowel sounds. The patient is not passing any flatus yet. Examination of the extremities revealed easily palpable radial, femoral and peda l pulses. There was no cyanosis, clubbing or edema. Examination of the skin revealed no evidence of significant rashes, suspicious appearing nevi or other concerning lesions. Neurologically, the patient is awake and somnolent and confused. Moving all 4 extremities. - Labs CBC & Chem 7: 10/22/20 08:10 10/22/20 08:10 Labs: Abnormal Lab Results - Last 24 Hours (Table) 10/21/20 10/21/20 10/21/20 Range/Units 16:44 17:20 20:24 WBC (3.8-10.6) k/uL RBC (4.30-5.90) m/uL Hgb (13.0-17.5) gm/dL Hct (39.0-53.0) % RDW (11.5-15.5) % Neutrophils # (1.3-7.7) k/uL Lymphocytes # (1.0-4.8) k/uL PT (9.0-12.0) sec INR (<1.2) Chloride (98-107) mmol/L Carbon Dioxide (22-30) mmol/L BUN (9-20) mg/dL Glucose (74-99) mg/dL POC Glucose (mg/dL) 129 H 121 H (75-99) mg/dL Plasma Lactic Acid [place] 2.5 H* (0.7-2.0) mmol/L Calcium (8.4-10.2) mg/dL 10/21/20 10/21/20 10/21/20 Range/Units 23:24 23:53 23:53 WBC 17.9 H (3.8-10.6) k/uL RBC 4.22 L (4.30-5.90) m/uL Hgb 11.8 L (13.0-17.5) gm/dL Hct 37.6 L (39.0-53.0) % RDW 19.3 H (11.5-15.5) % Neutrophils # 16.6 H (1.3-7.7) k/uL Lymphocytes # 0.5 L (1.0-4.8) k/uL PT 16.7 H (9.0-12.0) sec INR 1.7 H (<1.2) Chloride (98-107) mmol/L Carbon Dioxide (22-30) mmol/L BUN (9-20) mg/dL Glucose (74-99) mg/dL POC Glucose (mg/dL) 113 H (75-99) mg/dL Plasma Lactic Acid [place] (0.7-2.0) mmol/L Calcium (8.4-10.2) mg/dL 10/21/20 10/22/20 10/22/20 Range/Units 23:53 03:56 07:02 WBC (3.8-10.6) k/uL RBC (4.30-5.90) m/uL Hgb (13.0-17.5) gm/dL Hct (39.0-53.0) % RDW (11.5-15.5) % Neutrophils # (1.3-7.7) k/uL Lymphocytes # (1.0-4.8) k/uL PT (9.0-12.0) sec INR (<1.2) Chloride (98-107) mmol/L Carbon Dioxide (22-30) mmol/L BUN (9-20) mg/dL Glucose (74-99) mg/dL POC Glucose (mg/dL) 114 H (75-99) mg/dL Plasma Lactic Acid [place] 2.5 H* 2.4 H* (0.7-2.0) mmol/L Calcium (8.4-10.2) mg/dL 10/22/20 10/22/20 10/22/20 Range/Units 08:10 08:10 08:10 WBC 16.9 H (3.8-10.6) k/uL RBC 3.87 L (4.30-5.90) m/uL Hgb 11.0 L (13.0-17.5) gm/dL Hct 34.7 L (39.0-53.0) % RDW 19.3 H (11.5-15.5) % Neutrophils # 15.8 H (1.3-7.7) k/uL Lymphocytes # 0.3 L (1.0-4.8) k/uL PT (9.0-12.0) sec INR (<1.2) Chloride 111 H (98-107) mmol/L Carbon Dioxide 15 L (22-30) mmol/L BUN 39 H (9-20) mg/dL Glucose 101 H (74-99) mg/dL POC Glucose (mg/dL) (75-99) mg/dL Plasma Lactic Acid [place] 2.3 H* (0.7-2.0) mmol/L Calcium 7.2 L (8.4-10.2) mg/dL 10/22/20 10/22/20 Range/Units 12:04 14:51 WBC (3.8-10.6) k/uL RBC (4.30-5.90) m/uL Hgb (13.0-17.5) gm/dL Hct (39.0-53.0) % RDW (11.5-15.5) % Neutrophils # (1.3-7.7) k/uL Lymphocytes # (1.0-4.8) k/uL PT (9.0-12.0) sec INR (<1.2) Chloride (98-107) mmol/L Carbon Dioxide (22-30) mmol/L BUN (9-20) mg/dL Glucose (74-99) mg/dL POC Glucose (mg/dL) (75-99) mg/dL Plasma Lactic Acid [place] 4.3 H* 2.5 H* (0.7-2.0) mmol/L Calcium (8.4-10.2) mg/dL Assessment and Plan Plan: 1 Acute ischemic small bowel with pneumatosis intestinalis, the patient is post that the laparotomy and small bowel resection and the patient is postop day #5 . Based on the progression of the events postop, the patient has become hypotensive and he has developed recurrent lactic acidosis and he does have some abdominal pain. Despite the negative CAT scan from yesterday, there is a high suspicion that the patient has ongoing bowel ischemia and he may potentially need reexploration. I'm going to discuss again with general surgery. He is currently nothing by mouth. He is currently on IV Zosyn. Was recommended r emains elevated. Lactic acid level is lower as the patient is receiving IV fluids. The patient is also on pressors. 2 hypotension secondary to above, consider underlying sepsis , currently on pressors 3 acute lactic acidosis secondary to above, 4 acute leukocytosis 5 coronary artery disease with previous bypass surgery 6 diabetes mellitus , BS is being covered with a sliding scale insulin 7 peripheral vascular disease with previous intervention and stenting of the lower extremities 8 hypertension 9 hyperlipidemia 10 hypothyroidism 11 prostate cancer with previous radiation therapy 12 left upper extremity swelling with a basilic vein thrombosis, superficial vein. He did have several IV lines in that left upper extremity. Plan A very high suspicion for recurrent bowel ischemia post laparotomy and resection of the small bowel. I am very suspicious that there is some residual that bowel and the patient has decompensated accordingly and he has developed hypotension, lactic acidosis, and constitutionally he is doing poorly and his recovery process has not been absolutely right. He does developed also some mottling of the skin especially on his knees. I totally understand that there reexploration and further bowel resection may be carrying a very poor prognosis for this patient. The may not even except to put him through another surgery. Nevertheless, a repeat surgical evaluation by the surgeon who originally did the surgery will be of great value. A repeat CAT scan will be also of value especially of his condition decompensates. I'm considering repeating the CAT scan abdomen and pelvis tomorrow. Avoid giving any narcotics for now Continue NS at the rate of 100 cc an hour NPO Continue IV Zosyn Heparin subcu for DVT prophylaxis 5000 every 8 IV Protonix Titrate pressors to maintain a mean arterial pressure above 65 Established was status currently is a DNR/DNI We'll continue to follow
[2020-10-22] MEDS: SODIUM CHLORIDE 0.9% 1,000 ML IV SCH (18:17)
[2020-10-22 18:37] LABS: Glucose,Whole Blood 103 mg/dL (75-99)
[2020-10-22 23:38] LABS: Glucose,Whole Blood 91 mg/dL (75-99)
[2020-10-23] MEDS: PIPERACILLIN-TAZOBACTAM 3.375 GM in SODIUM CHLORIDE 0.9% 100 ML IVPB SCH (00:07)
[2020-10-23] MEDS: INSULIN ASPART (NovoLOG) 100 UNIT/ML VIAL SQ SCH ×2 (00:09→06:58)
[2020-10-23] MEDS: HEPARIN SODIUM,PORCINE 5,000 UNIT/ML 1 ML VIAL SQ SCH (00:09)
--- NOTE | 2020-10-23 00:46 | P.PN ---
Subjective Progress Note Date: 10/22/20 Principal diagnosis: Ischemic bowel s/p resection Mr. Joiner is a 70-year-old male with a past medical history of coronary artery disease, dementia, diverticulitis, DVT, hypertension, hyperlipidemia, thyroid disorder, prostate cancer coming into the hospital yesterday with a chief complaint of abdominal pain. Patient was having pain mostly in the center of his abdomen, which was sharp in nature and 10 out of 10 in intensity. He also had one episode of vomiting along with diarrhea and stools that are dark in color. Patient is on aspirin and Plavix at home. In the ER patient had a CAT scan of the abdomen and pelvis showing diffuse pneumatosis intestinalis involving mid to distal small bowel loops with portal venous gas consistent with bowel ischemia. There is associated moderate grade years. So the patient was taken to the ER and had exploratory laparotomy done earlier this morning. Intraoperatively patient required pressor support to maintain his blood pressur e. Postop patient was extubated and transferred to the ICU for further care. Postop patient had decreased urine output, so currently receiving his second liter of bolus in the ICU. On 10/18/2020 - patient was seen and examined in the ICU at bedside. Patient's at the bedside. As per discussion with the , patient has been confused thinks that there are people in the hallways collecting funds for his disability. She mentions that patient has history of dementia. Patient complains of abdominal soreness. He denies having any chest pain or palpitations. He has a Bowman's catheter in place with good urinary output. On reviewing his vitals T-max of 98.6, heart rate in 90s to 100s, blood pressure 110s/50s to 60s, saturating at 94% on room air. He is currently getting IV fluids, insulin drip and Zosyn. On reviewing the labs white count of 16.6, hemoglobin 10, platelets 258. INR of 1.2. Sodium 138, potassium 4.1, chloride 1 as is, bicarbonate, BUN 33, creatinine 0.95. Hemoglobin A1c 7.7. AST 307, ALT 306. On 10/19/2020 - patient was seen and examined at the bedside. Patient has been transferred to the regular medical floor since morning. Patient states that he's been having swelling of his left upper extremity. On talking with nursing staff, patient had 2 IVs that have infiltrate in the left cubital fossa and also he had a blood pressure cuff titrate to his upper arm in the ICU. Patient denies having any pain in his left upper extremity. Patient denies having any chest pain or palpitations. No cough or difficulty in breathing. He complains of abdominal soreness. On reviewing the vitals, temperature 97.3, heart rate 82, respiratory rate 14, blood pressure 135/76, saturating at 97% on room air. On reviewing his labs white count of 17.1, hemoglobin 11, platelets 263. Sodium 137, potassium 5.0, chloride 104, bicarbonate 25, BUN 45, creatinine 1.15. On 10/20/2020 - patient was seen and examined at the bedside. Patient states that he is taking liquid diet and tolerating it okay. But he states that he has loss of appetite. Patient states that his left upper extremity swelling is better compared to yesterday. He denies having any pain. Patient denies having any chest pain or palpitations. No cough or difficulty breathing. Complains of abdominal soreness. On reviewing the vitals, T-max of 98.2, heart rate 70, respiratory rate 18, blood pressure 1 10 x 63, saturating at 93% on room air. On reviewing his labs white count of 16.9, hemoglobin 10.8, platelets 269. Sodium 140, potassium 4.3, chloride 109, bicarb 16, BUN 50, creatinine 1.0. On 10/21/2020 - in the afternoon, nursing staff found that the patient had altered mental status changes and was hypotensive. At restaurants team was alerted and the patient was found to be lethargic but arousable. Patient had ABGs done showing pH of 7.4, pCO2 30, pO2 80 and bicarb of 19. Patient's blood pressure was lowered 100 binder 69 and his temperature was 97.3. Patient opened his eyes on calling his name. He was very tender to touch in the left lower abdominal quadrant. He was able to say his name. His extremities were cold to touch. He had CBC and BMP drawn. CBC showing white count of 19.3, hemoglobin stable at 11.6 and platelets 323. Sodium 135, potassium 4.7, chloride 106, bicarbonate 29. BUN 40 and creatinine of 0.79. Lactic acid 3.8. AST 468, ALT 428. Patient had a CAT scan of the head and CAT scan of the abdomen and pelvis done. CT of the head no acute intracranial abnormality. CT of the abdomen showing interval laparotomy with moderate 58 and persistent moderate intestinalis pneumatosis. On 10/22/2020 -overnight patient had an episode of hematemesis so rapid response team evaluated the patient. His aspirin and Plavix were put on hold. Eventually in the morning patient's blood pressure dropped to 72/40, IV fluid resuscitation was done and still his blood pressures remained low so patient was eventually transferred to the ICU. Patient was evaluated in the ICU with his at bedside. Patient complains of abdominal pain and he is slightly confused. Currently his blood pressure is 110 x 60, he was just started on Levophed few minutes back. Reviewing his labs hemoglobin stable at 11, white count 16.9, platelets 235. Sodium 137, potassium 4.1, chloride 111, bicarb 15, BUN 39, creatinine 0.87. Active Medications Generic Name Dose Route Start Last Admin Trade Name Freq PRN Reason Stop Dose Admin Aspirin 81 mg 10/20/20 14:00 10/22/20 06:33 Aspirin 81 Mg PO Not Given DAILY SEFERINO Atorvastatin Calcium 80 mg 10/20/20 14:00 10/22/20 07:15 Atorvastatin 80 Mg Tab PO 80 mg DAILY SEFERINO Administration Clopidogrel Bisulfate 75 mg 10/20/20 14:00 10/22/20 06:33 Clopidogrel 75 Mg Tab PO Not Given DAILY SEFERINO Ezetimibe 10 mg 10/20/20 14:00 10/22/20 07:17 Ezetimibe 10 Mg Tab PO 10 mg DAILY SEFERINO Administration Heparin Sodium (Porcine) 5,000 unit 10/18/20 00:00 10/23/20 00:09 Heparin Sodium,Porcine 5,000 Unit/Ml 1 Ml Vial SQ 5,000 unit Q8HR SEFERINO Administration Hydromorphone HCl 0.5 mg 10/17/20 11:54 10/21/20 10:12 Hydromorphone 0.5 Mg/0.5 Ml Syringe IVP 0.5 mg Q3HR PRN Administration Moderate to Severe Pain Piperacillin Sod/Tazobactam 100 mls @ 25 mls/hr 10/17/20 09:15 10/23/20 00:07 Sod 3.375 gm/ Sodium Chloride IVPB 25 mls/hr Q8HR SEFERINO Administration Sodium Chloride 1,000 mls @ 100 mls/hr 10/19/20 13:45 10/22/20 18:17 Saline 0.9% IV 100 mls/hr .Q10H SEFERINO Administration Norepinephrine Bitartrate 4 mg 254 mls @ 15.24 mls/hr 10/22/20 12:00 10/22/20 23:09 / Sodium Chloride IV 0.2 mcg/kg/min .[id number] SEFERINO 60.96 mls/hr Titration Protocol 0.05 MCG/KG/MIN Insulin Aspart 0 unit 10/22/20 18:00 10/23/20 00:09 Insulin Aspart (Novolog) 100 Unit/Ml Vial SQ Not Given Q6H SEFERINO Protocol Naloxone HCl 0.2 mg 10/16/20 20:20 Naloxone 0.4 Mg/Ml 1 Ml Vial IV Q2M PRN Opioid Reversal Naloxone HCl 0.2 mg 10/17/20 11:54 Naloxone 0.4 Mg/Ml 1 Ml Vial IV Q2M PRN Opioid Reversal Ondansetron HCl 4 mg 10/16/20 20:20 Ondansetron 4 Mg/2 Ml Vial IVP Q8HR PRN Nausea And Vomiting Ondansetron HCl 4 mg 10/17/20 11:54 Ondansetron 4 Mg/2 Ml Vial IVP Q6HR PRN Nausea And Vomiting Pantoprazole Sodium 40 mg 10/17/20 09:15 10/22/20 07:17 Pantoprazole 40 Mg/10 Ml Vial IVP 40 mg DAILY SEFERINO Administration Spironolactone 12.5 mg 10/20/20 14:00 10/22/20 07:15 Spironolactone 25 Mg Tab PO 12.5 mg DAILY SEFERINO Administration Objective - Vital Signs Vital signs: Vital Signs Temp 98.0 F 10/22/20 11:30 Pulse 75 10/22/20 14:00 Resp 28 H 10/22/20 14:00 BP 109/60 10/22/20 14:00 Pulse Ox 100 10/22/20 13:30 Intake & Output 10/21/20 10/22/20 10/22/20 18:59 06:59 18:59 Intake Total 924.841 Output Total 250 350 30 Balance -250 -350 894.841 Intake: Intake, IV Titration 924.841 Amount Norepinephrine 4 mg In 24.841 Sodium Chloride 0.9% 250 ml @ 0.05 MCG/KG/MIN 15. 24 mls/hr IV .[id number] [facility] Rx#:[id number] Sodium Chloride 0.9% 500 900 ml 500 ml @ 999 mls/hr IV .Q31M ONE Rx#:[id number] Output: Urine 250 350 30 Other: Voiding Method Indwelling Catheter Indwelling Catheter Indwelling Catheter # Bowel Movements 2 - Exam PHYSICAL EXAMINATION: GENERAL: The patient is alert and oriented x 1-2 HEENT: Pupils are round and equally reacting to light. EOMI. No scleral icterus. Mild conjunctival pallor. CARDIOVASCULAR: S1 and S2 present. PULMONARY: Chest is clear to auscultation, no wheezing or crackles. ABDOMEN: Surgical scar in place covered with dressing. Dressing appears clean with no bleeding. Hypoactive bowel sounds. Positive for tenderness in the left lower abdominal quadrant. MUSCULOSKELETAL: No joint swelling or deformity. EXTREMITIES: Extremities are cold to touch. NEUROLOGICAL: Patient able to move all 4 extremities - Labs CBC & Chem 7: 10/22/20 08:10 10/22/20 08:10 Labs: Abnormal Lab Results - Last 24 Hours (Table) 10/21/20 10/21/20 10/21/20 Range/Units 15:08 15:08 16:44 WBC (3.8-10.6) k/uL RBC (4.30-5.90) m/uL Hgb (13.0-17.5) gm/dL Hct (39.0-53.0) % RDW (11.5-15.5) % Neutrophils # (1.3-7.7) k/uL Lymphocytes # (1.0-4.8) k/uL PT (9.0-12.0) sec INR (<1.2) Sodium 135 L (137-145) mmol/L Chloride (98-107) mmol/L Carbon Dioxide 21 L (22-30) mmol/L BUN 40 H (9-20) mg/dL Glucose 151 H (74-99) mg/dL POC Glucose (mg/dL) 129 H (75-99) mg/dL Plasma Lactic Acid [place] (0.7-2.0) mmol/L Calcium 7.3 L (8.4-10.2) mg/dL AST 468 H (17-59) U/L ALT 420 H (4-49) U/L Troponin I 1.770 H* (0.000-0.034) ng/mL Total Protein 4.1 L (6.3-8.2) g/dL Albumin 1.8 L (3.5-5.0) g/dL 10/21/20 10/21/20 10/21/20 Range/Units 17:20 20:24 23:24 WBC (3.8-10.6) k/uL RBC (4.30-5.90) m/uL Hgb (13.0-17.5) gm/dL Hct (39.0-53.0) % RDW (11.5-15.5) % Neutrophils # (1.3-7.7) k/uL Lymphocytes # (1.0-4.8) k/uL PT (9.0-12.0) sec INR (<1.2) Sodium (137-145) mmol/L Chloride (98-107) mmol/L Carbon Dioxide (22-30) mmol/L BUN (9-20) mg/dL Glucose (74-99) mg/dL POC Glucose (mg/dL) 121 H 113 H (75-99) mg/dL Plasma Lactic Acid [place] 2.5 H* (0.7-2.0) mmol/L Calcium (8.4-10.2) mg/dL AST (17-59) U/L ALT (4-49) U/L Troponin I (0.000-0.034) ng/mL Total Protein (6.3-8.2) g/dL Albumin (3.5-5.0) g/dL 10/21/20 10/21/20 10/21/20 Range/Units 23:53 23:53 23:53 WBC 17.9 H (3.8-10.6) k/uL RBC 4.22 L (4.30-5.90) m/uL Hgb 11.8 L (13.0-17.5) gm/dL Hct 37.6 L (39.0-53.0) % RDW 19.3 H (11.5-15.5) % Neutrophils # 16.6 H (1.3-7.7) k/uL Lymphocytes # 0.5 L (1.0-4.8) k/uL PT 16.7 H (9.0-12.0) sec INR 1.7 H (<1.2) Sodium (137-145) mmol/L Chloride (98-107) mmol/L Carbon Dioxide (22-30) mmol/L BUN (9-20) mg/dL Glucose (74-99) mg/dL POC Glucose (mg/dL) (75-99) mg/dL Plasma Lactic Acid [place] 2.5 H* (0.7-2.0) mmol/L Calcium (8.4-10.2) mg/dL AST (17-59) U/L ALT (4-49) U/L Troponin I (0.000-0.034) ng/mL Total Protein (6.3-8.2) g/dL Albumin (3.5-5.0) g/dL 10/22/20 10/22/20 10/22/20 Range/Units 03:56 07:02 08:10 WBC 16.9 H (3.8-10.6) k/uL RBC 3.87 L (4.30-5.90) m/uL Hgb 11.0 L (13.0-17.5) gm/dL Hct 34.7 L (39.0-53.0) % RDW 19.3 H (11.5-15.5) % Neutrophils # 15.8 H (1.3-7.7) k/uL Lymphocytes # 0.3 L (1.0-4.8) k/uL PT (9.0-12.0) sec INR (<1.2) Sodium (137-145) mmol/L Chloride (98-107) mmol/L Carbon Dioxide (22-30) mmol/L BUN (9-20) mg/dL Glucose (74-99) mg/dL POC Glucose (mg/dL) 114 H (75-99) mg/dL Plasma Lactic Acid [place] 2.4 H* (0.7-2.0) mmol/L Calcium (8.4-10.2) mg/dL AST (17-59) U/L ALT (4-49) U/L Troponin I (0.000-0.034) ng/mL Total Protein (6.3-8.2) g/dL Albumin (3.5-5.0) g/dL 10/22/20 10/22/20 10/22/20 Range/Units 08:10 08:10 12:04 WBC (3.8-10.6) k/uL RBC (4.30-5.90) m/uL Hgb (13.0-17.5) gm/dL Hct (39.0-53.0) % RDW (11.5-15.5) % Neutrophils # (1.3-7.7) k/uL Lymphocytes # (1.0-4.8) k/uL PT (9.0-12.0) sec INR (<1.2) Sodium (137-145) mmol/L Chloride 111 H (98-107) mmol/L Carbon Dioxide 15 L (22-30) mmol/L BUN 39 H (9-20) mg/dL Glucose 101 H (74-99) mg/dL POC Glucose (mg/dL) (75-99) mg/dL Plasma Lactic Acid [place] 2.3 H* 4.3 H* (0.7-2.0) mmol/L Calcium 7.2 L (8.4-10.2) mg/dL AST (17-59) U/L ALT (4-49) U/L Troponin I (0.000-0.034) ng/mL Total Protein (6.3-8.2) g/dL Albumin (3.5-5.0) g/dL Assessment and Plan Assessment: ASSESSMENT Acute encephalopathy Hypotension Lactic acidosis Acute small bowel ischemia with pneumatosis intestinalis Status post exploration laparotomy with bowel resection and lysis of adhesions- postoperative day# 4 Superficial Basilic vein Thrombosis on the left UE Transaminitis Lactic acidosis - trending down Leukocytosis - Anemia- could be due to blood loss Coronary artery disease status post CABG Ischemic cardiomyopathy, ejection fraction 20-25% Prostate cancer with radiation therapy Type 2 diabetes mellitus Peripheral vascular disease with previous stenting of lower extremities Hypertension Hyperlipidemia Hypothyroidism Protein calorie malnutrition Severe PLAN: PLAN : Patient was given 3 to 4 L of IV fluids but still remained hypotensive. So he has been transferred to the ICU and started on pressor support. He was started on Levophed few minutes back and his MAP > 65. He c ontinues to be on Zosyn for antibiotic coverage. Most likely reason for deterioration of patient's status is recurrent bowel ischemia. He had a CAT scan of the abdomen and pelvis done yesterday reviewed by the surgeon. In view of his chronic medical conditions and cardiomyopathy, he would be a poor surgical candidate. This was discussed in detail with his at bedside. She mentions that the patient would want DNR/DNI. . Further recommendations to follow depending on the progress of the patient. Overall prognosis remains poor.
[2020-10-23] MEDS: NOREPINEPHRINE 4 MG in SODIUM CHLORIDE 0.9% 250 ML IV SCH ×2 (04:05→07:01)
[2020-10-23 05:05] LABS: Anisocytosis Slight; HCT 31.6 % (39.0-53.0); HGB 9.6 gm/dL (13.0-17.5); Hypochromasia Moderate; MCH 27.8 pg (25.0-35.0); MCHC 30.5 g/dL (31.0-37.0); MCV 91.2 fL (80.0-100.0); Mean Platelet Volume 8.2; Platelet Count 355 k/uL (150-450); Poikilocytosis Slight; RBC 3.47 m/uL (4.30-5.90); RDW 19.8 % (11.5-15.5)
[2020-10-23 05:44] LABS: Calcium 6.7 mg/dL (8.4-10.2); Potassium 4.2 mmol/L (3.5-5.1)
[2020-10-23 06:39] LABS: Band Neutrophils % 8 %; Lymphocytes # (M) 1.22 k/uL (1.0-4.8); Monocytes # (M) 1.22 k/uL (0-1.0); Neutrophils % (M) 83 %; Nucleated Red Blood Cells 2 /100 WBC (0-0); Total Cells Counted 200; WBC 24.3 k/uL (3.8-10.6)
[2020-10-23 06:39] LABS: Glucose,Whole Blood 60 mg/dL (75-99)
[2020-10-23 06:39] LABS: Glucose,Whole Blood 78 mg/dL (75-99)
[2020-10-23 06:40] LABS: Polychromasia Present
[2020-10-23] MEDS ORDERED: SODIUM CHLORIDE 0.9% 1,000 ML IV ONE (08:15)
[2020-10-23] MEDS ORDERED: SODIUM CHLORIDE 0.9% 50 ML with VASOPRESSIN 20 UNIT IVPB SCH ×2 (09:00)
--- NOTE | 2020-10-23 11:52 | P.PN ---
Subjective Progress Note Date: 10/23/20 Principal diagnosis: Acute small bowel ischemia with abdominal sepsis status post laparotomy and small bowel resection postoperative day #6 70-year-old male patient who arrived from the operating room where the patient had a extensive laparotomy, lysis of adhesions and small bowel resection for ischemic bowel. The patient was found to have ischemic bowel intraoperatively. Postop, the patient was extubated and patient was brought into the ICU for further care. At this point in time the patient is on oxygen at 3 L and his pulse ox around 93%. His BP is 101/56. He has nausea upper extremity peripheral IV. No central lines inserted. He has a Bowman catheter in place. Wil novak is currently running IV fluids at the rate of 150 mL an hour of normal saline. He will be given a 2 L bolus immediately here in the ICU knowing that his urine output has been in the order of 10-20 mL an hour. The patient came into the emergency department on October 16 and the patient was complaining of abdominal pain and he also had some lactic acidosis. Note that he has vasculopathy angios diabetes mellitus hypertension and underlying dementia and he is also known to have CAD and prostate cancer for which she has associated radiation therapy. The patient had a CAT scan of the abdomen and pelvis that was done in the emergency department yesterday and the CAT scan showed no evidence of any free air. There was diffuse pneumatosis intestinalis involving the mid and the distal portion of the small bowel loops with 40 venous gas consistent with bowel ischemia. There was also associated mild to moderate grade of an ileus. For that reason, the patient was taken to the operating room today. Note that his lactic acid level was 5.4. Currently is awake. Is unresponsive. Moving all 4 extremities. The patient already received a total of 4 L of fluid boluses. He is currently on IV Zosyn. Today's evaluation of 10/18/2020, the patient is postop day #1 following exploratory laparotomy and small bowel resection for underlying bowel ischemia. The patient was extubated and recovered. He remains extubated for now. Is on oxygen at 3 L and his pulse ox is around 97%. He is not using his incentive spirometer aggressively. Hemodynamically, he is stable on no pressors. IV fl uids are running in the form of normal saline at rate of 150 mL an hour. The fluid balance over the past 24 hours has been +4.8 L of the patient received several fluid boluses. His urine output was lower running between 10-20 mL an hour and the last bolus of fluid was given to him at around 8 PM yesterday. The patient's blood work from today shows a white cell count of 16 with a hemoglobin of 10. Note that the patient received also units of packed RBC yesterday. His BUN is 33 with a creatinine of 0.9. LFTs are improving including an AST of 307, ALT of 306 and the rest of the electrodes are all within normal limits. Albumin is down to 2.3. Surgical wound site over the anterior abdominal wall is dry clean and intact. The patient has no drains. Bowel sounds are quite hypoactive. Chest x-ray showing air under the right hemidiaphragm, likely postsurgical. The patient has signs of previous thoracotomy. Atelectatic changes can be seen also in the lung bases bilaterally. There is also right pleural thickening. Note that the patient's lactic is down to 1.2 acute on insulin drip last night and the patient was placed on insulin drip yesterday upon my request and the blood sugars under tighter control and current insulin drip is off and the patient is on a sliding scale coverage. 10/19/2020 the patient is being seen for a follow-up. The patient is postop day #2 and the patient underwent laparotomy and small bowel resection for bowel ischemia. As mentioned, the patient was extubated without any major difficulties. This morning he is on room air oxygen. He is using incentive spirometer and he remains hemodynamically stable. No reported abdominal pain for now. The patient has not passed any flatus yet. No major abdominal distention. No nausea. No vomiting. He remains on IV Zosyn for now. White cell count is at 17 which is essentially compatible to yesterday. The patient has no symptoms to metabolic acidosis. Serum bicarb is 25. His creatinine is at 1.1. Surgical wound site is dry clean and intact. No other significant events otherwise for now. He is receiving Dilaudid for pain control and he is also on heparin subcu for DVT prophylaxis. Blood sugars are also under good control and the patient is receiving sliding scale coverage insulin drip has been discontinued. No other significant events overnight. He is awake and alert and is following commands. On today's evaluation of the 2020 the patient is currently on a medical floor and was transferred out of the intensive care unit. His postop day #3. He is doing well. His chest x-ray from today shows some interstitial edema. There are some air under the right hemidiaphragm. There is also cardiomegaly. There may be some interstitial edema and fluid overload. His fluid balance has been positive more than 6 or 7 L over the past 48 hours. He is currently on normal saline at the rate of 100 mL an hour. He still nothing by mouth. We are going to proceed with some clear liquid diet today. He remains on IV Zosyn. Surgical wound site is dry clean and intact. No abdominal pain. No abdominal tenderness. White cell count today is at 16.9. Was attempted 0.8. General surgeries on the case. He also has some increased swelling in left upper extremity and the patient is going to have a ultrasound Doppler to rule out DVT. 10/21/2020, the patient is postop day #4. He is still on a medical floor. Doing well. On room air oxygen. Surgical wound site is dry clean and intact. Is using incentive spirometer. Is taking clear liquids. Nevertheless, I see him more lethargic compared to yesterday. It is probably that the patient has taken a dose of Avelox. That made him more lethargic. In general, he is much more interactive than what he is right now. His blood work today showing a white cell count of 11 and hemoglobin of 11.8 and platelet count of 326. Serum bicarb is at 20 with a BUN of 48 and creatinine of 0.9. He is receiving IV fluids with normal saline at the rate of 50 mL an hour. On today's evaluation 10/22/2020, the patient is postop day #5. Note that the patient was seen yesterday on the floor and he was becoming more lethargic and somnolent and subsequently started developing more abdominal discomfort and he got transferred to the intensive care unit because of abdominal pain and hypotension. Currently, his white count was mildly elevated and is consistent yesterday's value of the 16.9. Upon arrival to the ICU, his lactic acid level was 4.3 and he was given IV fluids in the form of 1.5 L of normal saline and his lactic acid level came down to 2.5. His blood work is also showing a component of anion gap metabolic acidosis with a serum bicarb of 15. The patient had a CAT scan of the abdomen yesterday that did not show any ischemic changes. There was some. It was thought to be related to postsurgical changes. Nevertheless, my overall clinical suspicion for ischemic bowel is very high based on his ongoing presentation. The patient had bowel resection for ischemic bowel and earlier down by Dr. Wynn. He has had a clear surgical wound. No significant distention. No emesis. Neurologically is quite altered and on the right and confused. Creatinine today is at 0.8. He remains on broad-spectrum antibiotics utilizing zosyn Reevaluated today on 10/23/2020, patient remains in the ICU, and as we walked into the room, patient is noted to be profoundly hypotensive, already on norepinephrine max, vasopressin was added, nurse told me that the patient is DO NOT RESUSCITATE CODE STATUS, and family is considering comfort care measures. Hence I recommended no further intervention, obviously the patient is going to pass comfortably and peacefully in the next hour or so. Family is on the way to say goodbye to the patient before he passes. Hence we'll continue the norepinephrine for now, and no further intervention was felt to be necessary except give him a 1 L fluid bolus to maintain minimal blood pressure at least. Until the family arrives to the hospital. Objective - Vital Signs Vital signs: Vital Signs Temp 99 F 10/23/20 04:00 Pulse 93 10/23/20 07:00 Resp 26 H 10/23/20 07:00 BP 90/48 10/23/20 07:00 Pulse Ox 97 10/23/20 07:00 Intake & Output 10/22/20 10/23/20 10/23/20 18:59 06:59 18:59 Intake Total 2530.785 1647.446 578.79 Output Total 55 63 5 Balance 2475.785 1584.446 573.79 Intake: IV 200 1200 100 0.9 200 1200 100 Intake, IV Titration 2330.785 447.446 478.79 Amount Norepinephrine 4 mg In 30.785 447.446 478.79 Sodium Chloride 0.9% 250 ml @ 0.05 MCG/KG/MIN 15. 24 mls/hr IV .[id number] [facility] Rx#:[id number] Piperacillin-Tazobactam 3 100 .375 gm In Sodium Chloride 0.9% 100 ml @ 25 mls/hr IVPB Q8HR [facility] Rx# :[id number] Sodium Chloride 0.9% 1, 1000 000 ml @ 999 mls/hr IV . Q1H1M [facility] Rx#:[id number] Sodium Chloride 0.9% 500 1200 ml 500 ml @ 999 mls/hr IV .Q31M [facility] Rx#:[id number] Output: Urine 55 63 5 Other: Voiding Method Indwelling Catheter Indwelling Catheter # Bowel Movements 2 - Exam Gen. appearance the patient is calm and comfortable but noted to be quite tachypneic. On 4 L nasal cannula, hypotensive. Head: Atraumatic, normocephalic. Neck: Supple no neck masses no JVD. Lungs the nourished breath sound bilaterally no rhonchi and no wheezes Cardiac exam normal S1 and S2, no S3 gallop. 3/6 systolic murmur thought the precordium. Abdomen is soft. Surgical wound site is dry clean and intact. mild direct tenderness. No rebound tenderness. No guarding. The patient's has a clean incision sites. No organomegaly. No bowel sounds. The patient is not passing any flatus yet. Examination of the extremities revealed diminished distal pulses bilaterally Examination of the skin revealed no evidence of significant rashes, suspicious appearing nevi or other concerning lesions. Neurologically, unresponsive, to painful stimuli. tachypneic, hypotensive. - Labs CBC & Chem 7: 10/23/20 04:07 10/23/20 04:07 Labs: Abnormal Lab Results - Last 24 Hours (Table) 10/22/20 10/22/20 10/22/20 Range/Units 12:04 14:51 17:33 WBC (3.8-10.6) k/uL RBC (4.30-5.90) m/uL Hgb (13.0-17.5) gm/dL Hct (39.0-53.0) % MCHC (31.0-37.0) g/dL RDW (11.5-15.5) % Neutrophils # (Manual) (1.3-7.7) k/uL Monocytes # (Manual) (0-1.0) k/uL Nucleated RBCs (0-0) /100 WBC Chloride (98-107) mmol/L Carbon Dioxide (22-30) mmol/L BUN (9-20) mg/dL Creatinine (0.66-1.25) mg/dL POC Glucose (mg/dL) (75-99) mg/dL Plasma Lactic Acid [place] 4.3 H* 2.5 H* 2.1 H* (0.7-2.0) mmol/L Calcium (8.4-10.2) mg/dL 10/22/20 10/22/20 10/23/20 Range/Units 18:16 21:07 04:07 WBC (3.8-10.6) k/uL RBC (4.30-5.90) m/uL Hgb (13.0-17.5) gm/dL Hct (39.0-53.0) % MCHC (31.0-37.0) g/dL RDW (11.5-15.5) % Neutrophils # (Manual) (1.3-7.7) k/uL Monocytes # (Manual) (0-1.0) k/uL Nucleated RBCs (0-0) /100 WBC Chloride (98-107) mmol/L Carbon Dioxide (22-30) mmol/L BUN (9-20) mg/dL Creatinine (0.66-1.25) mg/dL POC Glucose (mg/dL) 103 H (75-99) mg/dL Plasma Lactic Acid [place] 2.5 H* 5.2 H* (0.7-2.0) mmol/L Calcium (8.4-10.2) mg/dL 10/23/20 10/23/20 10/23/20 Range/Units 04:07 04:07 06:33 WBC 24.3 H (3.8-10.6) k/uL RBC 3.47 L (4.30-5.90) m/uL Hgb 9.6 L (13.0-17.5) gm/dL Hct 31.6 L (39.0-53.0) % MCHC 30.5 L (31.0-37.0) g/dL RDW 19.8 H (11.5-15.5) % Neutrophils # (Manual) 22.10 H (1.3-7.7) k/uL Monocytes # (Manual) 1.22 H (0-1.0) k/uL Nucleated RBCs 2 H (0-0) /100 WBC Chloride 113 H (98-107) mmol/L Carbon Dioxide 13 L (22-30) mmol/L BUN 48 H (9-20) mg/dL Creatinine 1.59 H (0.66-1.25) mg/dL POC Glucose (mg/dL) 60 L (75-99) mg/dL Plasma Lactic Acid [place] (0.7-2.0) mmol/L Calcium 6.7 L (8.4-10.2) mg/dL 10/23/20 Range/Units 07:35 WBC (3.8-10.6) k/uL RBC (4.30-5.90) m/uL Hgb (13.0-17.5) gm/dL Hct (39.0-53.0) % MCHC (31.0-37.0) g/dL RDW (11.5-15.5) % Neutrophils # (Manual) (1.3-7.7) k/uL Monocytes # (Manual) (0-1.0) k/uL Nucleated RBCs (0-0) /100 WBC Chloride (98-107) mmol/L Carbon Dioxide (22-30) mmol/L BUN (9-20) mg/dL Creatinine (0.66-1.25) mg/dL POC Glucose (mg/dL) (75-99) mg/dL Plasma Lactic Acid [place] 8.4 H* (0.7-2.0) mmol/L Calcium (8.4-10.2) mg/dL Assessment and Plan Assessment: Impression: Acute ischemic bowel requiring laparotomy and small bowel resection postoperative day #6 Strongly suspect recurrent bowel ischemia and abdominal sepsis with septic shoc k. Profound hypotension secondary to septic shock. History of coronary artery disease and previous CABG. History of hypothyroidism. History of prostate cancer. Acute Basilic vein thrombosis Recommendation: Family recommended DO NOT RESUSCITATE and comfort care measures, No further intervention is necessary, We will let the patient passed in peace comfort and dignity. Awaiting family to arrive to the ICU Time with Patient: Less than 30
--- NOTE | 2020-10-23 12:16 | P.PN ---
Subjective Progress Note Date: 10/23/20 HISTORY OF PRESENT ILLNESS: 10/18/2020 This is a 70-year-old male with a past medical history significant for coronary artery disease with previous stenting and CABG 5 in 1998, peripheral vascular disease with previous stenting of his lower extremities, diabetes mellitus, DVT, hypertension, hyperlipidemia, prostate cancer, and former nicotine dependence. Patient does not follow with a continuity editor. Patient states he recently moved to [place] from [place] and used to follow with a continuity editor in [place]. We have been asked to see the patient in consultation for cardiac history. Patient is status post exploratory laparotomy, lysis of adhesions, and small bowel resection secondary to ischemic bowel on 10/17/[address] Darnell. Patient examined at the bedside in the intensive care unit. Patient denies chest pain or pressure. Denies shortness of breath. EKG reveals sinus mechanism with T-wave inversions laterally Chest xray bilateral areas of infiltrate and pleural effusions. Stable from previous exam. Laboratory data: WBC 16.6. Hemoglobin 10.0. Platelet count 258. Sodium 138. Potassium 4.7. BUN 33. Creatinine 0.95. AST 307. ALT 306. Lactic acid 4.2. Repeat 1.2. Current home cardiac medications include study at 10 mg daily, Plavix 75 mg daily, atorvastatin 80 mg daily, lisinopril 20 mg twice a day, and aspirin 81 mg daily 10/19/2020 Patient examined this morning in the intensive care unit. Patient denies chest pain or pressure. He denies shortness of breath. He denies passing flatus. He remains nothing by mouth. Echocardiogram completed reveals ejection fraction 20-25% with global dysfunction except lateral wall shows fair motion, mild aortic regurgitation, mild aortic stenosis, moderate mitral regurgitation, mild tricuspid regurgitation, and mild pulmonary hypertension. 10/23/2020 Patient was transferred to the intensive care unit yesterday secondary to hypotension. Per nursing, the patient has received a total of 6 L and fluid boluses. He is currently on high dose Levaquin at approximately 80 mics. Patient is hypotensive this morning with a systolic blood pressure in the 60s. PHYSICAL EXAM: VITAL SIGNS: Reviewed. GENERAL: Well-developed in no acute distress. HEENT: Head is normocephalic. Pupils are equal, round. Sclerae anicteric. Mucous membranes of the mouth are moist. Neck supple. No JVD or thyromegaly LUNGS: Respirations even, but very shallow. Lungs diminished bilaterally. HEART: Regular rate and rhythm. S1 and S2 heard. Systolic murmur noted. EXTREMITIES: Normal range of motion. No lower extremity edema ASSESSMENT: Acute ischemic bowel with pneumatosis intestinalis, status post exploratory laparotomy, lysis of adhesions, and small bowel resection Hypotension Leukocytosis Lactic acidosis Elevated LFTs Coronary artery disease with previous stenting and CABG 1998 Ischemic cardiomyopathy, ejection fraction 20-25% Peripheral vascular disease with previous stenting of the lower extremities Diabetes mellitus Hypertension Hyperlipidemia History of prostate cancer Former nicotine dependence PLAN: Patient is currently DNR Family is on their way to the hospital Recommend comfort care measures Nurse practitioner note has been reviewed by physician. Signing provider agrees with the documented findings, assessment, and plan of care. Objective - Vital Signs Vital signs: Vital Signs Temp 99 F 10/23/20 04:00 Pulse 93 10/23/20 07:00 Resp 26 H 10/23/20 07:00 BP 90/48 10/23/20 07:00 Pulse Ox 97 10/23/20 07:00 Intake & Output 10/22/20 10/23/20 10/23/20 18:59 06:59 18:59 Intake Total 2530.785 1647.446 578.79 Output Total 55 63 5 Balance 2475.785 1584.446 573.79 Intake: IV 200 1200 100 0.9 200 1200 100 Intake, IV Titration 2330.785 447.446 478.79 Amount Norepinephrine 4 mg In 30.785 447.446 478.79 Sodium Chloride 0.9% 250 ml @ 0.05 MCG/KG/MIN 15. 24 mls/hr IV .[id number] [facility] Rx#:[id number] Piperacillin-Tazobactam 3 100 .375 gm In Sodium Chloride 0.9% 100 ml @ 25 mls/hr IVPB Q8HR [facility] Rx# :[id number] Sodium Chloride 0.9% 1, 1000 000 ml @ 999 mls/hr IV . Q1H1M [facility] Rx#:[id number] Sodium Chloride 0.9% 500 1200 ml 500 ml @ 999 mls/hr IV .Q31M [facility] Rx#:[id number] Output: Urine 55 63 5 Other: Voiding Method Indwelling Catheter Indwelling Catheter # Bowel Movements 2 - Labs CBC & Chem 7: 03/29/21 04:07 10/23/20 04:07 Labs: Abnormal Lab Results - Last 24 Hours (Table) 10/22/20 10/22/20 10/22/20 Range/Units 12:04 14:51 17:33 WBC (3.8-10.6) k/uL RBC (4.30-5.90) m/uL Hgb (13.0-17.5) gm/dL Hct (39.0-53.0) % MCHC (31.0-37.0) g/dL RDW (11.5-15.5) % Neutrophils # (Manual) (1.3-7.7) k/uL Monocytes # (Manual) (0-1.0) k/uL Nucleated RBCs (0-0) /100 WBC Chloride (98-107) mmol/L Carbon Dioxide (22-30) mmol/L BUN (9-20) mg/dL Creatinine (0.66-1.25) mg/dL POC Glucose (mg/dL) (75-99) mg/dL Plasma Lactic Acid [place] 4.3 H* 2.5 H* 2.1 H* (0.7-2.0) mmol/L Calcium (8.4-10.2) mg/dL 10/22/20 10/22/20 10/23/20 Range/Units 18:16 21:07 04:07 WBC (3.8-10.6) k/uL RBC (4.30-5.90) m/uL Hgb (13.0-17.5) gm/dL Hct (39.0-53.0) % MCHC (31.0-37.0) g/dL RDW (11.5-15.5) % Neutrophils # (Manual) (1.3-7.7) k/uL Monocytes # (Manual) (0-1.0) k/uL Nucleated RBCs (0-0) /100 WBC Chloride (98-107) mmol/L Carbon Dioxide (22-30) mmol/L BUN (9-20) mg/dL Creatinine (0.66-1.25) mg/dL POC Glucose (mg/dL) 103 H (75-99) mg/dL Plasma Lactic Acid [place] 2.5 H* 5.2 H* (0.7-2.0) mmol/L Calcium (8.4-10.2) mg/dL 10/23/20 10/23/20 10/23/20 Range/Units 04:07 04:07 06:33 WBC 24.3 H (3.8-10.6) k/uL RBC 3.47 L (4.30-5.90) m/uL Hgb 9.6 L (13.0-17.5) gm/dL Hct 31.6 L (39.0-53.0) % MCHC 30.5 L (31.0-37.0) g/dL RDW 19.8 H (11.5-15.5) % Neutrophils # (Manual) 22.10 H (1.3-7.7) k/uL Monocytes # (Manual) 1.22 H (0-1.0) k/uL Nucleated RBCs 2 H (0-0) /100 WBC Chloride 113 H (98-107) mmol/L Carbon Dioxide 13 L (22-30) mmol/L BUN 48 H (9-20) mg/dL Creatinine 1.59 H (0.66-1.25) mg/dL POC Glucose (mg/dL) 60 L (75-99) mg/dL Plasma Lactic Acid [place] (0.7-2.0) mmol/L Calcium 6.7 L (8.4-10.2) mg/dL 10/23/20 Range/Units 07:35 WBC (3.8-10.6) k/uL RBC (4.30-5.90) m/uL Hgb (13.0-17.5) gm/dL Hct (39.0-53.0) % MCHC (31.0-37.0) g/dL RDW (11.5-15.5) % Neutrophils # (Manual) (1.3-7.7) k/uL Monocytes # (Manual) (0-1.0) k/uL Nucleated RBCs (0-0) /100 WBC Chloride (98-107) mmol/L Carbon Dioxide (22-30) mmol/L BUN (9-20) mg/dL Creatinine (0.66-1.25) mg/dL POC Glucose (mg/dL) (75-99) mg/dL Plasma Lactic Acid [place] 8.4 H* (0.7-2.0) mmol/L Calcium (8.4-10.2) mg/dL
[2020-10-23 13:03] VITALS: BP 90/43; PULSE 0; RESP 8; TEMP 93.3
--- NOTE | 2020-10-30 10:04 | CDI ---
Documentation Clarification Form Date: 10/30/2020 09:50:09 AM From: Aminta QuinonesSchroederDUNCAN che, CCDS Admit Date: 10/16/2020 08:03:00 PM Patient Name: Tony Joiner Visit Number: [id number] Discharge Date: 10/23/2020 11:30:00 AM ATTENTION: The Clinical Documentation Specialists (CDI) and [facility] Coding Staff appreciate your assistance in clarifying documentation. Please respond to the clarification below the line at the bottom and electronically sign. The CDI & [facility] Coding staff will review the response and follow-up if needed. Please note: Queries are made part of the Legal Health Record. If you have any questions, please contact the author of this message via ITS. Dr. Magdalena Armstrong: Anemia is documented in the 10/16 ED Note, the 10/17 History & Physical and the 10/17 Pulmonary Consult in the Past Medical History without further specificity. Per the Medical Management Consult: "Anemia - could be due to blood loss" is documented without further specificity. Per the 10/22 Surgeon's Progress Note: "Anemia" is documented without further specificity. History/Risk Factors per the 10/16 ED Note Past Medical History: Prostate Cancer status post Radiation 2019, Anemia, DM, DVT, Hyperlipidemia, Hypertension, CAD, [place] status post CABG and Heart Catheterization with Stent, Depression and Former smoker. Clinical indicators: Presented to the ED on 10/16 with Abdominal pain and nausea. Admitted with Ischemic bowel disease and Abdominal Pain. 10/17 Procedure for Ischemic Bowel, Adhesions. Exploratory Laparotomy, Lysis of Adhesions, Small Bowel Resection. LAB: Hgb 10/16: 10.5, 10/17 8.5, 10/18 9.7 - 10.0 Hct 10/16: 32/4, 10/17: 26.7, 10/18: 30.3 - 29.6 10/17 Transfusion: 1 unit PRBCs Treatment 10/16: IV Morphine 4mg x3, IV Zofran, IV fluid 1,000 mls @ 999 mls/hr q1H x2, IV Zosyn 100 mls @ 200 mls/hr x1. 10/17: IV fluid 1,000 mls @ 999 mls/hr q1H, IV Protonix, IV zosyn q8H, IV Zofran, IV Decadron, IV Lactated Ringers Is there an additional diagnosis and/or clinical significance related to the above lab result/information: [ ] Acute blood loss anemia [ ] Acute on chronic blood loss anemia [ ] Chronic blood loss anemia [ ] Iron deficiency anemia [ ] Anemia of chronic disease [ X] Unable to determine [ ] Other, please specify (Template Last Revised: August 2020) [ X] Unable to determine km 10/30/20 @ 1941 MTDD
--- NOTE | 2020-10-30 10:20 | CDI ---
Documentation Clarification Form Date: 10/30/2020 10:05:00 AM From: Aminta Schroeder CCS, CCDS Admit Date: 10/16/2020 08:03:00 PM Patient Name: Tony Joiner Visit Number: [id number] Discharge Date: 10/23/2020 11:30:00 AM ATTENTION: The Clinical Documentation Specialists (CDI) and [facility] Coding Staff appreciate your assistance in clarifying documentation. Please respond to the clarification below the line at the bottom and electronically sign. The CDI & [facility] Coding staff will review the response and follow-up if needed. Please note: Queries are made part of the Legal Health Record. If you have any questions, please contact the author of this message via ITS. Dr. Denton Brown: Heart Failure is documented in the following Progress Notes without further specificity: 10/20 Cardiology Progress Note: "This is a 70-year-old male with a past medical history significant for coronary artery disease with previous stenting and CABG 5 in 1998, ischemic cardiomyopathy, congestive heart failure..." 10/21 Cardiology Progress Note: "We will maximize patient's heart failure medications as tolerated by blood pressure." History/Risk Factors per the 10/16 ED Note Past Medical History: Prostate Cancer status post Radiation 2018, Anemia, DM, DVT, Hyperlipidemia, Hypertension, CAD, [place] status post CABG and Heart Catheterization with Stent, Depression and Former smoker. Clinical indicators: Presented to the ED on 10/16 with Abdominal pain and nausea. Admitted with Ischemic bowel disease and Abdominal Pain. 10/17 Procedure for Ischemic Bowel, Adhesions. Exploratory Laparotomy, Lysis of Adhesions, Small Bowel Resection. 10/16 VS: T 97.6 - 97.4, P 90 - 86, R 20, BP 158/78, PO 99 RA - 94 RA 10/21 VS: T 97.3, P 92 - 102, R 14 - 17, BP 128/72 - 102/66; PO 97 RA - 90 RA 10/16 LAB: WBC 15.3, Hgb 10.5, Neut 11.5, APTT 18.7, Na 134, BUN 30, Cr 0.82, Gluc 245, Lactic Acid 2.1 - 4.2, Total Protein 6.0, Albumin 3.3 10/21 LAB: WBC 19.3, Hgb 11.6, Neut 16.6, PT 16.7, INR 1.7, Na 135, CO2 21, BUN 40, Cr 0.79, Gluc 151, Lactic Acid 3.8, Calcium 7.3, AST 468, ALT 420, Troponin 1.770, total Protein 4.1, Albumin 1.8 10/21 Blood Gas: pCO2 30, pO2 80, HCO3 19 BNP done done 10/18 ECHO: Moderate concentric LVH, Left ventricular systolic function severely impaired EF 20-25%. Ischemic cardiomyopathy, Mild aortic regurgitation, Mild aortic stenosis, Moderate MR, Mild TR, Mild Pulmonary Hypertension. 10/17 CXR: Bilateral infiltrate, COPD & Small Effusion, correlate for CHF vs interstitial pneumonia. 10/18, & CXR: Difficult to exclude pleural effusion(s). Treatment 10/16: IV Morphine 4mg x3, IV Zofran, IV fluid 1,000 mls @ 999 mls/hr q1H x2, IV Zosyn 100 mls @ 200 mls/hr x1. 10/17: IV fluid 1,000 mls @ 999 mls/hr q1H, IV Protonix, IV zosyn q8H, IV Zofran, IV Decadron, IV Lactated Ringers In your professional opinion, can you please clarify the [acuity and type] of CHF if known? [ ] Heart Failure ruled out [ ] Acute Systolic Heart Failure (reduced EF) [ ] Chronic Systolic Heart Failure (reduced EF) [ ] Acute on Chronic Systolic Heart Failure (reduced EF) [ ] Other, please specify [ ] Unable to determine (Template Last Revised: August 2020) IMPRESSION: chronic stsolic CHF MTDD
--- NOTE | 2020-10-30 10:32 | CDI ---
Documentation Clarification Form Date: 10/30/2020 10:22:00 AM From: Aminta Schroeder CCS, CCDS Admit Date: 10/16/2020 08:03:00 PM Patient Name: Tony Joiner Visit Number: [id number] Discharge Date: 10/23/2020 11:30:00 AM ATTENTION: The Clinical Documentation Specialists (CDI) and [facility] Coding Staff appreciate your assistance in clarifying documentation. Please respond to the clarification below the line at the bottom and electronically sign. The CDI & [facility] Coding staff will review the response and follow-up if needed. Please note: Queries are made part of the Legal Health Record. If you have any questions, please contact the author of this message via ITS. Dr. Cassie White: On 10/23, the patient's BUN was 48, Creatinine was 1.59, clarification of these abnormal lab values is requested. 10/16 GFR: 88, 10/23 GFR 43. (05/18/2020 GFR 75) History/Risk Factors per the 10/16 ED Note Past Medical History: Prostate Cancer status post Radiation 2018, Anemia, DM, DVT, Hyperlipidemia, Hypertension, CAD, [place] status post CABG and Heart Catheterization with Stent, Depression and Former smoker. Clinical indicators: Presented to the ED on 10/16 with Abdominal pain and nausea. Admitted with Ischemic bowel disease and Abdominal Pain. 10/17 Procedure for Ischemic Bowel, Adhesions. Exploratory Laparotomy, Lysis of Adhesions, Small Bowel Resection. 10/16 VS: T 97.6 - 97.4, P 90 - 86, R 20, BP 158/78, PO 99 RA - 94 RA 10/21 VS: T 97.3, P 92 - 102, R 14 - 17, BP 128/72 - 102/66; PO 97 RA - 90 RA 10/16 LAB: WBC 15.3, Hgb 10.5, Neut 11.5, APTT 18.7, Na 134, BUN 30, Cr 0.82, Gluc 245, Lactic Acid 2.1 - 4.2, Total Protein 6.0, Albumin 3.3 10/21 LAB: WBC 19.3, Hgb 11.6, Neut 16.6, PT 16.7, INR 1.7, Na 135, CO2 21, BUN 40, Cr 0.79, Gluc 151, Lactic Acid 3.8, Calcium 7.3, AST 468, ALT 420, Troponin 1.770, total Protein 4.1, Albumin 1.8 10/21 Blood Gas: pCO2 30, pO2 80, HCO3 19 Treatment 10/16: IV Morphine 4mg x3, IV Zofran, IV fluid 1,000 mls @ 999 mls/hr q1H x2, IV Zosyn 100 mls @ 200 mls/hr x1. 10/17: IV fluid 1,000 mls @ 999 mls/hr q1H, IV Protonix, IV zosyn q8H, IV Zofran, IV Decadron, IV Lactated Ringers Nephrology was not consulted. Please clarify the following diagnosis and please note if present on admission: [ ] Acute Renal Failure (specify cause if known) [ ] Acute on Chronic Renal Failure (please specify stage of CKD if known) [ ] Chronic renal failure (specify stage if known) [ ] CKD Stage 1 [ ] CKD Stage 2 [ ] CKD Stage 3a [ ] CKD Stage 3b [ ] Other, please specify [ ] Unable to determine (Template Last Revised: September 2020) Acute Renal Failure - due to Ischemic bowel MTDD
--- NOTE | 2020-10-30 12:39 | P.DS ---
Providers Date of admission: 10/16/20 20:03 Expected date of discharge: 10/23/20 Attending physician: Tom Darnell Consults: 10/16/20 20:20 Consult Physician Urgent Consulting Provider: Speedy Pedraza Consult Reason/Comments: medical managment, ischemic bowel Do you want consulting provider notified?: Yes 10/17/20 11:59 Consult Physician Routine Consulting Provider: Bruno White Consult Reason/Comments: ICU management Do you want consulting provider notified?: Yes 10/17/20 14:31 Consult Physician Routine Consulting Provider: Steven Ortiz Consult Reason/Comments: cardiac history Do you want consulting provider notified?: Yes 10/21/20 15:11 Consult Physician Routine Consulting Provider: Jp Ndiaye Consult Reason/Comments: AMS Do you want consulting provider notified?: Yes Primary care physician: [facility] Hospital Course: This is a 70-year-old male who's Hospital with abdominal pain. Patient's workup found evidence of ischemic small bowel. He underwent exploratory laparotomy with spell resection. Patient had a complicated postoperative stay. Please see hospital chart for details. Patient was that she may Comfort Care and . Procedures: Exploratory laparotomy, small bowel resection Patient Condition at Discharge: Critical Plan - Discharge Summary New Discharge Prescriptions: No Action Atorvastatin [Lipitor] 80 mg PO DAILY QUEtiapine [SEROquel] 25 mg PO HS lisinopriL 20 mg PO BID Clopidogrel Bisulfate [Plavix] 75 mg PO DAILY Insulin Glargine [Lantus] 20 unit SQ HS Ezetimibe [Zetia] 10 mg PO DAILY Aspirin [Adult Low Dose Aspirin EC] 81 mg PO DAILY Levothyroxine Sodium [Synthroid] 25 mg PO DAILY Ascorbic Acid [Vitamin C] 1,000 mg PO DAILY Cyclobenzaprine [Flexeril] 5 mg PO TID PRN PRN Reason: Muscle Pain Magnesium Oxide [Valdes] 500 mg PO DAILY Cyanocobalamin (Vitamin B-12) [Vitamin B-12] 2,500 mcg PO DAILY Cholecalciferol [Vitamin D3 (25 Mcg = 1000 Iu)] 25 mcg PO DAILY Tolterodine ER [Detrol LA] 4 mg PO DAILY Discharge Medication List Aspirin [Adult Low Dose Aspirin EC] 81 mg PO DAILY 05/18/20 [History] Atorvastatin [Lipitor] 80 mg PO DAILY 05/18/20 [History] Clopidogrel Bisulfate [Plavix] 75 mg PO DAILY 05/18/20 [History] Ezetimibe [Zetia] 10 mg PO DAILY 05/18/20 [History] Insulin Glargine [Lantus] 20 unit SQ HS 05/18/20 [History] QUEtiapine [SEROquel] 25 mg PO HS 05/18/20 [History] lisinopriL 20 mg PO BID 05/18/20 [History] Levothyroxine Sodium [Synthroid] 25 mg PO DAILY 08/04/20 [History] Ascorbic Acid [Vitamin C] 1,000 mg PO DAILY 10/16/20 [History] Cholecalciferol [Vitamin D3 (25 Mcg = 1000 Iu)] 25 mcg PO DAILY 10/16/20 [His tory] Cyanocobalamin (Vitamin B-12) [Vitamin B-12] 2,500 mcg PO DAILY 10/16/20 [History] Cyclobenzaprine [Flexeril] 5 mg PO TID PRN 10/16/20 [History] Magnesium Oxide [Valdes] 500 mg PO DAILY 10/16/20 [History] Tolterodine ER [Detrol LA] 4 mg PO DAILY 10/16/20 [History] Follow up Appointment(s)/Referral(s): Denton Brown MD [STAFF PHYSICIAN] - 2 Weeks [facility], [NON-STAFF] - aRghu Pineda DO [Primary Care Provider] - 1-2 days Discharge Disposition: - Preliminary Cause of Preliminary Cause of : Sepsis
== END 2020-10-23 11:30 | disposition expired | DRG 853 ==
LOC: EC 17:36 → 5NMEDONC 20:03 → 2SICU 10-17 11:27 → 4SSUR 10-19 14:06 → 2SICU 10-22 11:31
PROVIDERS: ADMIT Surgery; ATTEND Surgery
PROC: 30233N1 Transfusion of Nonautologous Red Blood Cells into Peripheral Vein, Percutaneous Approach (ICD-10-PCS; 2020-10-17)
PROC: 0DB80ZZ Excision of Small Intestine, Open Approach (ICD-10-PCS; principal; 2020-10-17 11:20)
PROC: 3E033XZ Introduction of Vasopressor into Peripheral Vein, Percutaneous Approach (ICD-10-PCS; 2020-10-22)
DX: A41.9 Sepsis, unspecified organism (principal); K55.059 Acute (reversible) ischemia of intestine, part and extent unspecified; R65.21 Severe sepsis with septic shock; K65.1 Peritoneal abscess; G93.41 Metabolic encephalopathy; E43 Unspecified severe protein-calorie malnutrition; E87.2 Acidosis; N17.9 Acute kidney failure, unspecified; K92.0 Hematemesis; K56.7 Ileus, unspecified; I82.612 Acute embolism and thrombosis of superficial veins of left upper extremity; I50.22 Chronic systolic (congestive) heart failure; I27.20 Pulmonary hypertension, unspecified; G90.8 Other disorders of autonomic nervous system; F01.50 Vascular dementia, unspecified severity, without behavioral disturbance, psychotic disturbance, mood disturbance, and anxiety; E11.51 Type 2 diabetes mellitus with diabetic peripheral angiopathy without gangrene; I11.0 Hypertensive heart disease with heart failure; E11.65 Type 2 diabetes mellitus with hyperglycemia; Z79.4 Long term (current) use of insulin; Z66 Do not resuscitate; Z51.5 Encounter for palliative care; Z20.822 Contact with and (suspected) exposure to COVID-19; K66.0 Peritoneal adhesions (postprocedural) (postinfection); D64.9 Anemia, unspecified; K63.89 Other specified diseases of intestine; I25.5 Ischemic cardiomyopathy; E03.9 Hypothyroidism, unspecified; I49.3 Ventricular premature depolarization; K57.90 Diverticulosis of intestine, part unspecified, without perforation or abscess without bleeding; E78.5 Hyperlipidemia, unspecified; I08.3 Combined rheumatic disorders of mitral, aortic and tricuspid valves; I25.10 Atherosclerotic heart disease of native coronary artery without angina pectoris; F32.9 Major depressive disorder, single episode, unspecified; R74.01 Elevation of levels of liver transaminase levels; I25.2 Old myocardial infarction; Z68.24 Body mass index [BMI] 24.0-24.9, adult; Z79.82 Long term (current) use of aspirin; Z79.02 Long term (current) use of antithrombotics/antiplatelets; Z79.890 Hormone replacement therapy; Z79.899 Other long term (current) drug therapy; Z92.3 Personal history of irradiation; Z85.46 Personal history of malignant neoplasm of prostate; Z86.718 Personal history of other venous thrombosis and embolism; Z90.49 Acquired absence of other specified parts of digestive tract; Z87.19 Personal history of other diseases of the digestive system; Z95.1 Presence of aortocoronary bypass graft; Z95.5 Presence of coronary angioplasty implant and graft; Z87.891 Personal history of nicotine dependence; Z95.828 Presence of other vascular implants and grafts
CPT/HCPCS: 36600; 70450; 71045; 74176; 74177; 80048; 80053; 82150; 82805; 83036; 83605; 83690; 83735; 84100; 84484; 85025; 85027; 85610; 85730; 86850; 86900; 86901; 86920; 87040; 87635; 88307; 93005; 93306; 96361; 96365; 96375; 96376; 99285